=== PATIENT | female | born 1965 | race Caucasian/White ===

== ENCOUNTER 2022-11-20 11:24 | Outpatient (CLI) | payer OTHER, SELFPAY ==
--- NOTE | 2022-11-20 11:30 | CRLHL7_ITS ---
For Patients: As a result of the Century Cures Act, medical imaging exams and procedure reports are released immediately into your electronic medical record. You may view this report before your referring provider. If you have questions, please contact your health care provider. BILATERAL SCREENING MAMMOGRAM WITH COMPUTER-AIDED DETECTION AND TOMOSYNTHESIS TECHNIQUE: CC and MLO views were obtained. These mammographic images have been obtained using full-field digital technique. These mammographic images were interpreted with the benefit of computer-aided detection. Breast Tomosynthesis was used in this interpretation. COMPARISON FILM: 03/02/18, 03/08/12, 04/29/10. FINDINGS: There are scattered areas of fibroglandular density IMPRESSION: There is no radiographic evidence for malignancy. ASSESSMENT: BI-RADS Category 1: Negative RECOMMENDATION: Routine screening mammogram in 1 year. A lay language report of this examination will be provided to the patient. Reza Miranda M.D. Diagnostic Radiologist [email or web address] [place]AVIN[place]/Dictated by: Reza Miranda MD @ 11/23/2022 12:46:00 PM (Electronically Signed)
== END 2022-11-20 11:25 | disposition home or self-care (01) ==
LOC: MAMMO 11:26
PROVIDERS: PCP Internal Medicine; Visit Provider Internal Medicine
DX: Z12.31 Encounter for screening mammogram for malignant neoplasm of breast (principal)
CPT/HCPCS: 77063; 77067

== ENCOUNTER 2022-12-15 14:35 | Outpatient (CLI) | payer OTHER, SELFPAY | END 2022-12-15 14:36 | disposition home or self-care (01) | LOC: NFLDREF 14:35 | PROVIDERS: PCP Internal Medicine; Visit Provider Internal Medicine | DX: E11.9 Type 2 diabetes mellitus without complications (principal); I10 Essential (primary) hypertension; E66.9 Obesity, unspecified; E78.5 Hyperlipidemia, unspecified; E03.9 Hypothyroidism, unspecified | CPT/HCPCS: 80048; 80061 ==

== ENCOUNTER 2023-02-14 20:01 | Emergency (ER) | payer OTHER, SELFPAY ==
[2023-02-14 20:09] VITALS: BP 113/78; PULSE 83; RESP 18; TEMP 36.1; O2SAT 98
--- NOTE | 2023-02-14 20:31 | ED_ITS ---
HPI - General Adult General Date Seen: 02/14/23 Chief complaint: Laceration/Wound Stated complaint: R thumb lac Time Seen by Provider: 02/14/23 20:14 Source: patient Mode of arrival: ambulatory Limitations: no limitations History of Present Illness HPI narrative: Patient is a 57-year-old female presented emergency department for laceration to her right thumb near the MCP joint. 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 Denies any of the injuries. States of large amount of blood initially to she came to the emergency department to be evaluated. Her last tetanus was 5 years ago. No other concerns at this time Related Data Home Medications Medication Instructions Recorded Confirmed albuterol sulfate 90 mcg/actuation 2 inhalation PRN 10/15/22 12/15/22 aerosol inhaler cholecalciferol (vitamin D3) 50 2,000 unit PO DAILY 10/15/22 12/15/22 mcg (2,000 unit) capsule glucosamine sulfate 1,000 mg 1,000 mg PO BID 10/15/22 12/15/22 capsule magnesium oxide 500 mg tablet 500 mg PO QHS 10/15/22 12/15/22 multivitamin (Multiple Vitamins 1 tab PO QAM 10/15/22 12/15/22 tablet) Previous Rx's Medication Instructions Recorded levothyroxine 150 mcg tablet 150 mcg PO QDAY #90 tabs 10/15/22 simvastatin 10 mg tablet 10 mg PO QDAY #90 tabs 10/15/22 valsartan 160 1 tab PO ONCE #90 tabs 10/15/22 mg-hydrochlorothiazide 12.5 mg tablet Allergies Allergy/AdvReac Type Severity Reaction Status Date / Time cetirizine Allergy Severe TONGUE Verified 12/15/22 14:36 SWELLING Review of Systems Narrative: Negative unless otherwise stated in HPI PFSH PFSH Surgical History History of malignant melanoma ?Z85.820 - Personal history of malignant melanoma of skin (ICD-10) History of carpal tunnel syndrome (12/10/08) ?Z86.69 - Personal history of other diseases of the nervous system and sense organs (ICD-10) History of tonsillectomy and adenoidectomy (03/24/12) ?Z90.89 - Acquired absence of other organs (ICD-10) History of hysterectomy (03/24/12) ?Z90.710 - Acquired absence of both cervix and uterus (ICD-10) Family History Father Clotting disorder Coronary artery disease Sister Clotting disorder Colonic polyp, Onset Age: 50 Coronary artery disease Mother Coronary artery disease Other Lupus erythematosus Social History Smoking Status: Never smoker Exam Narrative: Exam Narrative: Const: Well-nourished, Well-developed, in mild distress Eyes: PERRL, no conjunctival injection, and symmetrical lids ENMT: Atraumatic external nose and ears. Moist mucous membranes. MSK:Extremities w/o deformity, Normal Active ROM Skin: Warm, Dry. 0.5 cm laceration just distal to the MCP and right thumb Neuro: Normal Muscle tone, No focal neurological deficits. Psych: Awake, Alert, & Oriented x3. Appropriate mood and affect. Const: Vital Signs, click to edit/add: Vital Signs - 24 hr 02/14/23 20:09 Temperature 97.0 F L Pulse Rate [Right Pulse Oximeter] 83 Respiratory Rate 18 Blood Pressure [Ri ght Upper Arm] 113/78 Pulse Oximetry 98 Oxygen Delivery Me thod Room Air Course Vital Signs Vital signs: Initial Vital Signs Temperature 97.0 F L 02/14/23 20:09 Temperature Source Temporal Artery Scan 02/14/23 20:09 Pulse Rate 83 02/14/23 20:09 Pulse Rhythm Regular 02/14/23 20:09 Respiratory Rate 18 02/14/23 20:09 Blood Pressure 113/78 02/14/23 20:09 Blood Pressure Mean 89 02/14/23 20:09 Blood Pressure Position Sitting 02/14/23 20:09 Pulse Oximetry 98 02/14/23 20:09 Oxygen Delivery Method Room Air 02/14/23 20:09 Vital Signs Temperature 97.0 F L 02/14/23 20:09 Pulse Rate 83 02/14/23 20:09 Respiratory Rate 18 02/14/23 20:09 Blood Pressure 113/78 02/14/23 20:09 Pulse Oximetry 98 02/14/23 20:09 Oxygen Delivery Method Room Air 02/14/23 20:09 Temperature 97.0 F L 02/14/23 20:09 Pulse Rate 83 02/14/23 20:09 Respiratory Rate 18 02/14/23 20:09 Blood Pressure 113/78 02/14/23 20:09 Pulse Oximetry 98 02/14/23 20:09 Oxygen Delivery Method Room Air 02/14/23 20:09 Medical Decision Making MDM Narrative Medical decision making narrative: 57-year-old female presented emergency depart for laceration to her right thumb. This roughly 0.5 cm in length but is currently closed. Did not appear to be very deep. She has full movement of her thumb is not show any signs of tendon or muscle involvement. Wound was thoroughly cleaned. Laceration is well approximated and stays well approximated throughout movements of the thumb. At this point I do not believe is necessary to put sutures and will instead place some skin glue to keep it already well approximated wound edges together. I gave her strict return precautions if she is any concern for infection. She is agreeable to this plan. Discharge Plan Discharge Clinical Impression: Finger laceration Qualifiers: Encounter type: initial encounter Finger: thumb Damage to nail status: without damage Foreign body presence: without foreign body Laterality: right Qualified Code(s): S61.011A - Laceration without foreign body of right thumb without damage to nail, initial encounter Patient Disposition: Home, Self-Care Condition: Stable Instructions: Finger Laceration (ED) Additional Instructions: If the finger starts to show signs of infection or your concern today showing signs of infection follow up with the primary care provider or return to the emergency department immediately to be re-evaluated. Topical antibiotics are not necessary at this time. Prescriptions: No Action cholecalciferol (vitamin D3) 50 mcg (2,000 unit) capsule 2,000 unit PO DAILY glucosamine sulfate 1,000 mg capsule 1,000 mg PO BID multivitamin [Multiple Vitamins] Tablet 1 tab PO QAM magnesium oxide 500 mg tablet 500 mg PO QHS albuterol sulfate 90 mcg/actuation HFA aerosol inhaler 2 inhalation PRN levothyroxine 150 mcg tablet 150 mcg PO QDAY Qty: 90 3RF simvastatin 10 mg tablet 10 mg PO QDAY Qty: 90 3RF valsartan-hydrochlorothiazide 160-12.5 mg tablet 1 tab PO ONCE Qty: 90 3RF Follow Up/Referrals: Rae Dorantes MD [Primary Care Provider] - Stand Alone Forms: [facility] Inst[facility]
--- OUTSIDE RECORDS SUMMARY | 2023-02-14 20:47 | XMS_ITS | Continuity of Care Document ---
Author Name Unknown Organization [facility] Address [address] [address] [place] [address] Phone Care Team Providers Care Brim Stiffener Name Role Phone Seven Bond MD Unavailable Unavailabl e Allergies, Adverse Reactions, Alerts Substance Reaction Status Criticality CETIRIZINE HCL Active No Informatio n Medications Medication Instructions Dosage Effective Dates (start - stop) Status Comments levothyroxine 137 mcg tablet take 1 tablet by oral route every day 137 MCG - Active Women's 50 Plus Daily Formula 400 mcg-500 mg calcium-20 mcg tablet - Active Vitamin D3 2,000 unit tablet take 1 tablet by oral route every day 1 tablet - Active glucosamine sulfate 1,000 mg capsule - Active magnesium 250 mg tablet take 1 Tablet by Oral route once 1 Tablet - Active loratadine 10 mg tablet take 1 tablet by oral route every day 10 MG - Active Procedures Procedure Date Colonoscopy Flex; Dx (sep Pro) 18 Advance Directives Directive Yes / No Effective Date File Name No Information Encounters Encounter Description Practice Location Reason(s) For Visit Diagnoses Date Provider Providers Copied on Encounter [facility], [address] [address], [place], [id number], [place] tel:[phone] [facility] No Information 3 Thomas Amezcua. [address] [facility], [facility] [address], [place], [id number] , [place]. tel:[phone] [facility], [address] [address], [place], [id number], [place] tel:[phone] [facility] Family hx colonic polypsInternal hemorrhoidsEncounte r for screening for malignant neoplasm of colonOther hemorrhoidsFamily history of colonic polyps 8 Cassy Bustos. [address] [facility], [place], [id number] , [place]. tel:[phone] Referring Provider: Rae Dorantes MD E, [address] [place] [address], [address]. tel:[phone] Family History Family Member Type Diagnosis Age At Onset Mother Problem (finding) Sister Problem (finding) Colon polyps Sister Problem (finding) asthma Father Problem (finding) Sister Problem (finding) diverticulitis of colon Immunizations Vaccine Date Status Comments SARS-COV-2 (COVID-19) vaccin e, mRNA, spike protein, LNP, preservative free, 30 mcg/0.3mL dose administered Note: [facility] bi-direct ional interface ; Source: Other Registry SARS-COV-2 (COVID-19) vaccin e, mRNA, spike protein, LNP, preservative free, 30 mcg/0.3mL dose administered Note: [facility] bi-direct ional interface ; Source: Other Registry influenza virus vaccine, unspecified formulation administered Note: [facility] bi-di rectional interface ; Source: Other Registry SARS-COV-2 (COVID-19) vaccin e, mRNA, spike protein, LNP, preservative free, 30 mcg/0.3mL dose administered Note: [facility] bi-direct ional interface ; Source: Other Registry SARS-COV-2 (COVID-19) vaccin e, mRNA, spike protein, LNP, preservative free, 30 mcg/0.3mL dose administered Note: [facility] bi-direct ional interface ; Source: Other Registry Seasonal, quadrivalent, recombinant, injectable influenza vaccine, preservative free administered Note: [facility] bi-direct ional interface ; Source: Other Registry measles, mumps and rubella v irus vaccine administered Note: [facility] bi-direct ional interface ; Source: Other Registry tetanus and diphtheria toxoi ds, adsorbed, preservative free, for adult use (5 Lf of tetanus toxoid and 2 Lf of diphtheria toxoid) administered Note: [facility] bi-direct ional interface ; Source: Other Registry Influenza, seasonal, injecta ble, preservative free administered Note: [facility] bi-direct ional interface ; Source: Other Registry Influenza administered Note: [facility] bi-d irectional interface ; Source: Other Registry Afluria Qd administered Note: [facility] bi-directional interface ; Source: Other Registry Afluria Qd administered Note: [facility] bi-directional interface ; Source: Other Registry Influenza, seasonal, injectable administe red Note: [facility] bi- directional interface ; Source: Other Registry Influenza, seasonal, injecta ble, preservative free administered Note: [facility] bi-direct ional interface ; Source: Other Registry Influenza, seasonal, injecta ble, preservative free administered Note: [facility] bi-direct ional interface ; Source: Other Registry Influenza, seasonal, injecta ble, preservative free administered Note: [facility] bi-direct ional interface ; Source: Other Registry Influenza, seasonal, injecta ble, preservative free administered Note: [facility] bi-direct ional interface ; Source: Other Registry Novel [id number], injectable administered Note: [facility] bi-direct ional interface ; Source: Other Registry tetanus toxoid, reduced diphtheria toxoid, and acellular pertussis vaccine, adsorbed administered Note: [facility] b i-directional interface ; Source: Other Registry Payers Payer name Insurance type Covered democrat ID Authoriza tion(s) No Information Social History Type Description Quantity Date Captured Comments Sex Female Smoking Status No Information Chief Complaint And Reason For Visit No Information Reason For Referral Reason For Referral No Information Plan Of Treatment Date Type Action Status Appointment Essie Borges History Of Present Illness Encounter Date Complaint History Of Prese nt Illness No Information Functional Status Date Functional Assessmen t No Information Instructions Date Instruction Additional Infor mation High Fiber Diet Related to Famil y hx colonic polyps Colon Cancer Prevention Related to Family hx colonic polyps Hemorrhoids Related to Famil y hx colonic polyps Assessments Type Assessment Date No Information Patient Care Teams Name Effective Dates (start - stop) Status Members No Information
== END 2023-02-14 20:54 | disposition home or self-care (01) ==
LOC: ED 20:45
PROVIDERS: Emergency Provider Student in an Organized Health Care Education/Training Program; PCP Internal Medicine
DX: S61.011A Laceration without foreign body of right thumb without damage to nail, initial encounter (principal); W26.0XXA Contact with knife, initial encounter
CPT/HCPCS: 12001; 99282

== ENCOUNTER 2023-04-27 09:11 | Outpatient (CLI) | payer OTHER, SELFPAY | END 2023-04-27 09:12 | disposition home or self-care (01) | PROVIDERS: PCP Internal Medicine; Visit Provider Internal Medicine | DX: E11.9 Type 2 diabetes mellitus without complications (principal); I10 Essential (primary) hypertension; E66.01 Morbid (severe) obesity due to excess calories; K76.0 Fatty (change of) liver, not elsewhere classified; E03.9 Hypothyroidism, unspecified | CPT/HCPCS: 80053 ==

== ENCOUNTER 2023-06-11 07:25 | Outpatient (CLI) | payer OTHER, SELFPAY | END 2023-06-11 07:26 | disposition home or self-care (01) | LOC: NFLDREF 06-17 15:33 | PROVIDERS: PCP Internal Medicine; Referring Provider Internal Medicine; Visit Provider Internal Medicine | DX: E11.42 Type 2 diabetes mellitus with diabetic polyneuropathy (principal); I10 Essential (primary) hypertension; E78.5 Hyperlipidemia, unspecified; E03.9 Hypothyroidism, unspecified; K76.0 Fatty (change of) liver, not elsewhere classified | CPT/HCPCS: 80053; 80061; 82043; 82570 ==

== ENCOUNTER 2023-06-14 15:12 | Outpatient (CLI) | payer OTHER, SELFPAY ==
--- OUTSIDE RECORDS SUMMARY | 2023-06-16 12:05 | XMS_ITS | Encounter Summary ---
Author Name Unknown Organization [facility] Address [address] [place] [id number] Care Team Providers Care Aix Administrator Name Role Phone Unavailable Primary Care Provider Unavailabl e Encounter Details Date Type Department Care Team (Latest Contact Info) Description 04/23/2023 Travel Social History Tobacco Use Types Packs/Day Years Used Date Smoking Tobacco: Never Passive Smoke Exposure: Past Smokeless Tobacco: Never Alcohol Use Standard Drinks/Week Comments Yes 0 (1 standard drink = 0.6 oz pur e alcohol) occas Adolescent Education Answer Date Record ed Getting School Help Needed Not on file 04/21 Sex and Gender Information Value Date Recorded Sex Assigned at Female 05/01/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
--- OUTSIDE RECORDS SUMMARY | 2023-06-16 12:05 | XMS_ITS | Encounter Summary ---
Author Name Unknown Organization [facility] Address [address] [place] [id number] Care Team Providers Care Health Unit Supervisor Name Role Phone Rae Dorantes MD Primary Care Provider Reason for Visit * Auth/Cert (Routine) Specialty Diagnoses / Procedures Referred By Contac t Referred To Contact Surgery Diagnoses Osteoarthritis of left hip Osteoarthritis of left hip [M16.12] Procedures [place] TOTAL HIP ARTHROPLASTY Left total hip arthroplasty Periop Services [address] [place] [address] Referral ID Status Reason Start Date Expiration Date Visits Re quested Visits Authorized [id number] 1 1 Encounter Details Date Type Department Care Team (Late st Contact Info) Description 05/20/2023 1:04 PM PROFESSOR OF ENVIRONMENTAL STUDIES Anesthesia Event [facility] [address] [place] [phone] Sara Correa MD [address] [place] [address] Anesthesia Record Procedure Summary Procedure Name Responsible Anesthesiologist Anesthesia Start Time Anesthesia Stop Time Left total hip arthroplasty (Left: Hip) Sara Correa MD 05/20/23 1304 05/20/23 1444 Events Date Time Event Comment 05/20/2023 1224 1251 DEFENSE TRAVEL ADMINISTRATOR Ready for Procedure 1304 An Start 1307 An Start Data 1307 AN REASSESS I attest that I have identified and re-evaluated the patient immediately before the induction of anesthesia and I am satisfied that the anesthetic plan is suitable for the patient's condition and procedure. The first vital signs recorded are pre- induction. Sepideh Huertas APRN DEFENSE TRAVEL ADMINISTRATOR 1307 Anesthesia Ready for Procedu re 1310 MD Present 1314 Quick Note Spinal placed b y Dr. Correa 1314 MD Present 1349 MD Present 1420 MD Present 1438 an stop data 1444 An Stop Electronically signed by Sepideh Huertas APRN DEFENSE TRAVEL ADMINISTRATOR on May 20, 2023 2:44 PM 1444 MD Present Meds Name Total midazolam 1 mg/mL 2 mg ketorolac 30 mg/mL 15 mg propofol 10 mg/mL 40 mg propofol drip mcg/kg/min 706.76 mg dexamethasone (DECADRON) 4 mg/mL 4 mg ondansetron 2 mg/mL 4 mg 0.5% Bupivacaine PF (Intrathecal) 2 mL ceFAZolin Sodium (ANCEF) injection 2 g 2 g LR 900 mL * Agents Name NO HELIOX O2 N2O Air Exp Sevoflurane Exp Isoflurane Exp Desflurane Exp N2O Ins Sevoflurane Ins Isoflurane Ins Desflurane O2 Auxiliary * Blood No blood administrations on file. Lines, Drains, and Airways Type Details Placement Removal Incision/Surgical Site 05/20/23; 1401; L eft; Hip; x1 incision 05/20/23 1401 by Hellen Orozco RN Peripheral IV 05/20/23; 1226; 20 G ; B Mcnally; Distal, Left, Dorsal; Lower forearm; Chlorhexidine; 1; Tolerated well 05/20/23 1226 by Brandi Hager RN 05/21/23 1238 by Delmi Perrin RN documented in this encounter Social History Tobacco Use Types Packs/Day Years [...] Sex Assigned at Female 05/01/2023 11:03 AM PROFESSOR OF ENVIRONMENTAL STUDIES Gender Identity Female 05/01/2023 11:03 AM PROFESSOR OF ENVIRONMENTAL STUDIES Sexual Orientation Not on file documented as of this encounter OR Notes * Anesthesia Postprocedure Evaluation - Sara Correa MD - 05/20/2023 2:59 PM CST Patient: Essie Borges Procedure: Procedure(s): Left total hip arthroplasty Anesthesia Type: Spinal Note: Disposition: Admission Postop Pain Control: Uneventful Sign Out: Well controlled pain PONV: No Neuro/Psych: Uneventful Sign Out: Acceptable/Baseline neuro status Airway/Respiratory: Uneventful Sign Out: Acceptable/Baseline resp. status CV/Hemodynamics: Uneventful Sign Out: Acceptable CV status; No obvious hypovolemia; No obvious fluid overload Other NRE: NONE DID A NON-ROUTINE EVENT OCCUR? No Last vitals: Vitals Value Taken Time BP 107/67 05/20/23 1455 Temp 97.7 ??F (36.5 ??C) 05/20/23 1440 Pulse 90 05/20/23 1457 Resp 19 05/20/23 1457 SpO2 100 % 05/20/23 1457 Vitals shown include unfiled device data. Electronically Signed By: Sara Correa MD May 20, 2023 2:59 PM ESSOR OF ENVIRONMENTAL STUDIES * Anesthesia Procedure Notes - Sara Correa MD - 05/20/2023 1:24 PM PROFESSOR OF ENVIRONMENTAL STUDIES Associated Order(s): Spinal Block Intrathecal injection Procedure Note Pre-Procedure Staff - Anesthesiologist: Sara Correa MD Performed By: anesthesiologist Referred By: Dr. Gasca Location: OR Procedure Start/Stop Times: 05/20/2023 1:06 PM and 05/20/2023 1:14 PM Pre-Anesthestic Checklist: patient identified, IV checked, risks and benefits discussed, informed consent, monitors and equipment checked, pre-op evaluation, at physician/surgeon's request and post-op pain management Timeout: Correct Patient: Yes Correct Procedure: Yes Correct Site: Yes Correct Position: Yes Procedure Documentation Procedure: intrathecal injection Patient Position: sitting Skin prep: Chloraprep Insertion Site: L3-4. (midline approach). Needle Gauge: 25. Needle Length (Inches): 4 Spinal Needle Type: Pencan Introducer used # of attempts: 1 and # of redirects: Assessment/Narrative CSF fluid: clear. Medication(s) Administered 0.5% Bupivacaine PF (Intrathecal) - Intrathecal 2 mL - 05/20/2023 1:14:00 PM Medication Administration Time: 05/20/2023 1:06 PM Comments: R/b/a discussed, patient consented to spinal for primary anesthetic. Clear CSF return before and after intrathecal injection of local anesthetic. No paraesthesias. No complications, patienttolerated the procedure well. FOR [facility] ([facility] [place]) ONLY: Pain Team Contact information: please page the Pain Team Via [employer]Search Pain. During daytime hours, please page the attending first. At night please page the resident first. 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 abdominal ORTHOPEDIC SURGERY Bilateral carpal tunnel SOFT TISSUE SURGERY melanoma knee Allergies Allergen Reactions Cetirizine Swelling Social History Tobacco Use Smoking status: Never Passive exposure: Past Smokeless tobacco: Never Substance Use Topics Alcohol use: Yes Comment: occas Wt Readings from Last 1 Encounters: 05/20/23 111.3 kg (245 lb 4.8 oz) Anesthesia Evaluation ROS/MED HX ENT/Pulmonary: (+) Intermittent, asthma Treatment: Inhaler prn, Neurologic: - neg neurologic ROS Cardiovascular: (+) hypertension- - - - - METS/Exercise Tolerance: >4 METS Hematologic: - neg hematologic ROS Musculoskeletal: - neg musculoskeletal ROS GI/Hepatic: - neg GI/hepatic ROS Renal/Genitourinary: - neg Renal ROS Endo: (+) type II DM, Last HgA1c: 5.6%, Not using insulin, - not using insulin pump. thyroid problem, hypothyroidism, Obesity, Psychiatric/Substance Use: - neg psychiatric ROS Infectious Disease: - neg infectious disease ROS Malignancy: - neg malignancy ROS Other: - neg other ROS Physical Exam Airway Mallampati: II TM distance: > 3 FB Neck ROM: full Mouth opening: > 3 cm Respiratory Devices and Support Dental (+) Minor Abnormalities - some fillings, tiny chips Cardiovascular cardiovascular exam normal Rhythm and rate: regular and normal Pulmonary pulmonary exam normal breath sounds clear to auscultation OUTSIDE LABS: CBC: Lab Results Component Value Date WBC 7.5 05/20/2023 HGB 12.9 05/20/2023 HCT 39.8 05/20/2023 PLT 203 05/20/2023 BMP: Lab Results Component Value Date GLC 98 05/20/2023 COAGS: No results found for: PTT, INR, FIBR POC: No results found for: BGM, HCG, HCGS HEPATIC: No results found for: ALBUMIN, PROTTOTAL, ALT, AST, GGT, ALKPHOS, BILITOTAL,BILIDIRECT, FILI OTHER: No results found for: PH, LACT, A1C, BRANDY, PHOS, MAG, LIPASE, AMYLASE, TSH,T4, T3, CRP, SED Anesthesia Plan ASA Status: 3 NPO Status: NPO Appropriate Anesthesia Type: Spinal. Maintenance: TIVA. Consents Anesthesia Plan(s) and associated risks, benefits, and realistic alternatives discussed. Questions answered and patient/sales representative cash registers(s) expressed understanding. - Discussed: Risks, Benefits and Alternatives for BOTH SEDATION and the PROCEDURE were discussed - Discussed with: Patient Use of blood products discussed: Yes. - Discussed with: Patient. - Consented: consented to blood products Reason for refusal: other. Postoperative Care Pain management: Neuraxial analgesia. PONV prophylaxis: Ondansetron (or other 5HT-3), Dexamethasone or Solumedrol Comments: Other Comments: R/b/a discussed including bleeding, infection, nerve damage, and headache. Patient consented to spinal for primary anesthesia with GA as backup. Last dose of Tirzepatide was over 1 week ago. Took valsartan-hydrochlorothiazide this morning. Plan: Spinal with GETA backup. Propofol and phenylephrine infusions. Sara Correa MD I have reviewed the pertinent notes and labs in the chart from the past 30 days and (re)examined the patient. Any updates or changes from those notes are reflected in this note. # Obesity: Estimated body mass index is 38.42 kg/m?? as calculated from the following: Height as of this encounter: 1.702 m (5' 7). Weight as of this encounter: 111.3 kg (245 lb 4.8 oz). ESSOR OF ENVIRONMENTAL STUDIES documented in this encounter Miscellaneous Notes * Anesthesia Care Transfer Note - Sepideh Huertas APRN CRNA - 05/20/2023 2:44 PM CST Patient: Essie Borges Procedure: Procedure(s): Left total hip arthroplasty Diagnosis: Osteoarthritis of left hip [M16.12] Diagnosis Additional Information: No value filed. Anesthesia Type: Spinal Note: Oropharynx: oropharynx clear of all foreign objects and spontaneously breathing Level of Consciousness: awake Oxygen Supplementation: face mask Independent Airway: airway patency satisfactory and stable Dentition: dentition unchanged Vital Signs Stable: post-procedure vital signs reviewed and stable Report to RN Given: handoff report given Patient transferred to: PACU Comments: VSS. Report to RN. Handoff Report: Identifed the Patient, Identified the Reponsible Provider, Reviewed the pertinent medical history, Discussed the surgical course, Reviewed Intra-OP anesthesia mangement and issues during anesthesia, Set expectations for post-procedure period and Allowed opportunity for questions andacknowledgement of understanding Vitals: Vitals Value Taken Time BP Temp Pulse 97 05/20/23 1444 Resp 13 05/20/23 1444 SpO2 100 % 05/20/23 1444 Vitals shown include unfiled device data. Electronically Signed By: Sepideh Huertas APRN CRNA May 20, 2023 2:44 PM ESSOR OF ENVIRONMENTAL STUDIES documented in this encounter Plan of Treatment Not on file documented as of this encounter Goals Goal Patient Goal Type Associated Problems Recent Progress Patient-Stated? Author Total Joint Replacement Hip Pathway Care Plan Total Joint Replacement Hip Pathway No Felipe Gianes RN documented as of this encounter Procedures Procedure Name Priority Date/Time Associated Diagnosis Comments ANE SPINAL BLOCK FORM Routine 05/20/2023 1:06 PM PROFESSOR OF ENVIRONMENTAL STUDIES documented in this encounter Results * Spinal Block (05/20/2023 1:06 PM PROFESSOR OF ENVIRONMENTAL STUDIES) Narrative Sara Correa MD - 05/20/2023 1:06 PM PROFESSOR OF ENVIRONMENTAL STUDIES Sara Correa MD ? 05/20/2023 ??1:24 PM Intrathecal injection Procedure Note Pre-Procedure Staff - ? Anesthesiologist: ??Sara Correa MD ? Performed By: anesthesiologist ? Referred By: Dr. Gasca ? Location: OR ? Procedure Start/Stop Times: 05/20/2023 1:06 PM and 05/20/2023 1:14 PM ? Pre-Anesthestic Checklist: patient identified, IV checked, risks and benefits discussed, informed consent, monitors and equipment checked, pre-op evaluation, at physician/surgeon's request and post-op pain management Timeout: ? Correct Patient: Yes ? Correct Procedure: Yes ? Correct Site: Yes ? Correct Position: Yes Procedure Documentation Procedure: intrathecal injection ? Patient Position: sitting ? Skin prep: Chloraprep ? Insertion Site: L3-4. (midline approach). ? Needle Gauge: 25. ? Needle Length (Inches): 4 ? Spinal Needle Type: Pencan ? Introducer used ? # of attempts: 1 and ??# of redirects: Assessment/Narrative ? CSF fluid: clear. Medication(s) Administered 0.5% Bupivacaine PF (Intrathecal) - Intrathecal 2 mL - 05/20/2023 1:14:00 PM Medication Administration Time: 05/20/2023 1:06 PM Comments: ??R/b/a discussed, patient consented to spinal for primary anesthetic. Clear CSF return before and after intrathecal injection of local anesthetic. No paraesthesias. No complications, patient tolerated the procedure well. FOR [facility] ([facility] [place]) ONLY: ?? Pain Team Contact information: please page the Pain Team Via [employer]. Search Pain. During daytime hours, please page the attending first. At night please page the resident first. Sara Correa MD [place] ANESTHESIA documented in this encounter Visit Diagnoses Not on filedocumented in this encounter Administered Medications Inactive Administered Medications - up to 3 most recent administrations Medication Order MAR Action Action Date Dose Rate Site 0.5% Bupivacaine PF (Intrathecal) Intrathecal, Starting on Jaycee 05/20/23 at 1314, Anesthesia Intra-op $Given 05/20/2023 1:14 PM PROFESSOR OF ENVIRONMENTAL STUDIES 2 mLs ceFAZolin Sodium (ANCEF) injection 2 g Routine, 2 g, Intravenous, PRE-OP/PRE-PROCEDURE, Starting on Jaycee 05/20/23 at 1137, For 1 dose, Give first dose within 1 hour PRIOR to incision. If patient weight is greater than or equal to 120 kg increase dose to 3 g., Indications: Perioperative Pharmacoprophylaxis, Pre-procedure $Given 05/20/2023 1:04 PM PROFESSOR OF ENVIRONMENTAL STUDIES 2 g dexAMETHasone (DECADRON) injection Intravenous, PRN, Administer over 1 Minutes, Starting on Jaycee 05/20/23 at 1334, Anesthesia Intra-op $Given 05/20/2023 1:34 PM PROFESSOR OF ENVIRONMENTAL STUDIES 4 mg ketorolac (TORADOL) injection Intravenous, PRN, Administer over 2 Minutes, Starting on Jaycee 05/20/23 at 1424, Anesthesia Intra-op $Given 05/20/2023 2:24 PM PROFESSOR OF ENVIRONMENTAL STUDIES 15 mg lactated ringers infusion Intravenous, CONTINUOUS PRN, Anesthesia Intra-op, Starting on Jaycee 12 at 1304, Until Jaycee 12 at 1444 $New Bag 05/20/2023 1:04 PM PROFESSOR OF ENVIRONMENTAL STUDIES midazolam (VERSED) injection Intravenous, Administer over 2 Minutes, PRN, Starting on Jaycee 05/20/23 at 1302, Anesthesia Intra-op $Given 05/20/2023 1:02 PM PROFESSOR OF ENVIRONMENTAL STUDIES 2 mg ondansetron (ZOFRAN) injection Intravenous, PRN, Administer over 2-5 Minutes, Starting on Jaycee 05/20/23 at 1423, Anesthesia Intra-op $Given 05/20/2023 2:23 PM PROFESSOR OF ENVIRONMENTAL STUDIES 4 mg propofol (DIPRIVAN) infusion Intravenous, CONTINUOUS PRN, Starting on Jaycee 05/20/23 at 1320, Anesthesia Intra-op Rate/Dose Change 05/20/2023 2:17 PM PROFESSOR OF ENVIRONMENTAL STUDIES 100 mcg/kg/min 66.78 mL/hr Rate/Dose Change 05/20/2023 2:07 PM PROFESSOR OF ENVIRONMENTAL STUDIES 75 mcg/kg/min 50.0 85 mL/hr Rate/Dose Change 05/20/2023 1:45 PM PROFESSOR OF ENVIRONMENTAL STUDIES 100 mcg/kg/min 66. 78 mL/hr propofol (DIPRIVAN) injection 10 mg/mL vial Intravenous, PRN, Starting on Jaycee 05/20/23 at 1327, Anesthesia Intra-op $Given 05/20/2023 1:27 PM PROFESSOR OF ENVIRONMENTAL STUDIES 40 mg documented in this encounter Additional Health Concerns Problem Noted Date Diagnosed Date Total Joint Replacement Hip Pathway 05/10/2023 documented as of this encounter Care Teams Health Unit Supervisor Relationship Specialty Start Date End Date Rae Dorantes MD [facility] & [address] [id number] PCP - General Internal Medicine 04/26/23 documented as of this encounter
--- OUTSIDE RECORDS SUMMARY | 2023-06-16 12:05 | XMS_ITS | Clinical Summary ---
Author Name Unknown Organization [facility] Address [address] [place] [address] Care Team Providers Care Varnish Maker Helper Name Role Phone Rae Dorantes MD Primary Care Provider Allergies Active Allergy Reactions Criticality Noted Date Comments Cetirizine Swelling 10/05/2006 Medications Medication Sig Dispensed Refills Start Date End Date Status levothyroxine (SYNTHROID/LEVOTHROI D) 150 MCG tablet Take 150 mcg by mouth daily 0 Active tirzepatide (MOUNJARO) 2.5 MG/0.5ML pen Inject 2.5 mg Subcutaneous every 7 days 0 Active valsartan-hydrochlor othiazide (DIOVAN HCT) 160-12.5 MG tablet Take 1 tablet by mouth daily 0 Active simvastatin (ZOCOR) 10 MG tablet Take 10 mg by mouth at bedtime 0 Active Multiple Vitamins-Minerals (MULTIVITAMIN ADULTS 50+ PO) Take 1 tablet by mouth daily 0 Active Turmeric 400 MG CAPS Take 1 capsule by mouth 2 times daily 0 Active odpildl-kkgrfpo-huss yl elizabeth 4-10-30 % CREA Apply topically daily as needed 0 Active ibuprofen (ADVIL/MOTRIN) 600 MG tablet Take 600 mg by mouth every 6 hours as needed for moderate pain 0 Active albuterol (PROAIR HFA/PROVENTIL HFA/VENTOLIN HFA) 108 (90 Base) MCG/ACT inhaler Inhale 2 puffs into the lungs every 6 hours as needed for shortness of breath, wheezing or cough 0 Active senna-docusate (SENOKOT-S/PERICOLAC E) 8.6-50 MG tabletIndications:Pr imary osteoarthritis of left hip Take 1-2 tablets by mouth 2 times daily Take while on oral narcotics to prevent or treat constipation. 30 tablet 0 05/20/2023 Active polyethylene glycol (MIRALAX) 17 g packetIndications:Pr imary osteoarthritis of left hip Take 17 g by mouth daily 7 packet 0 05/20/2023 Active acetaminophen (TYLENOL) 325 MG tabletIndications:Pr imary osteoarthritis of left hip Take 2 tablets (650 mg) by mouth every 4 hours as needed for other (mild pain) 60 tablet 0 05/20/2023 Active aspirin (ASA) 325 MG EC tabletIndications:Pr imary osteoarthritis of left hip Take 1 tablet (325 mg) by mouth daily 42 tablet 0 05/20/2023 Active oxyCODONE (ROXICODONE) 5 MG tabletIndications:Pr imary osteoarthritis of left hip Take 1-2 tablets (5-10 mg) by mouth every 4 hours as needed for moderate to severe pain 30 tablet 0 05/20/2023 Active hydrOXYzine HCl (ATARAX) 25 MG tabletIndications:Pr imary osteoarthritis of left hip Take 1 tablet (25 mg) by mouth every 6 hours as needed for itching or anxiety (with pain, moderate pain) 30 tablet 0 05/20/2023 Active Active Problems Problem Noted Date Diagnosed Date S/P total left hip arthroplasty 05/20/2023 Encounters Date Type Department Care Team Description 05/20/2023 1:04 PM INSECTICIDE EXPERT Anesthesia Event [facility] PeriOp Services [address] [place] [address] Sara Correa MD 05/20/2023 12:50 PM INSECTICIDE EXPERT - 05/20/2023 3:10 PM INSECTICIDE EXPERT Surgery [facility] PeriOp Services [address] [place] [address] Favio Gasca MD Left total hip arthroplasty 05/20/2023 10:43 AM INSECTICIDE EXPERT - 05/21/2023 1:41 PM INSECTICIDE EXPERT Hospital Encounter [facility] Ortho Spine [address] [place] [address] Favio Gasca MD Primary osteoarthritis of left hip (Primary Dx) Discharge Disposition: Home or Self Care 04/23/2023 Travel from Last 3 Months Social History Tobacco Use Types Packs/Day Years Used Date Smoking Tobacco: Never Passive Smoke Exposure: Past Smokeless Tobacco: Never Tobacco Cessation:Counseling Given: Not Answered Alcohol Use Standard Drinks/Week Comments Yes 0 (1 standard drink = 0.6 oz pur e alcohol) occas Adolescent Education Answer Date Record ed Getting School Help Needed Not on file 04/21 Sex and Gender Information Value Date Recorded Sex Assigned at Female 05/01/2023 11:03 AM INSECTICIDE EXPERT Gender Identity Female 05/01/2023 11:03 AM INSECTICIDE EXPERT Sexual Orientation Not on file Last Filed Vital Signs Vital Sign Reading Time Taken Comments Blood Pressure 116/52 05/21/2023 1:00 PM INSECTICIDE EXPERT Pulse 82 05/21/2023 1:00 PM INSECTICIDE EXPERT Temperature 36.8 ??C (98.2 ??F) 05/21/2023 1:00 PM CS T Respiratory Rate 16 05/21/2023 1:00 PM INSECTICIDE EXPERT Oxygen Saturation 98% 05/21/2023 1:00 PM INSECTICIDE EXPERT Inhaled Oxygen Concentration - - Weight 111.3 kg (245 lb 4.8 oz) 023 11:14 AM INSECTICIDE EXPERT Height 170.2 cm (5' 7) 05/04/2023 11:0 0 AM INSECTICIDE EXPERT Body Mass Index 38.42 05/04/2023 11:00 AM INSECTICIDE EXPERT Plan of Treatment Health Maintenance Due Date Last Done Comments ADVANCE CARE PLANNING 1964 ANNUAL REVIEW OF HM ORDERS 1964 CT COLONOGRAPHY 1964 FIT 1964 FLEX SIG 1964 HEPATITIS B IMMUNIZATION (1 of 3 - 3-dose series) 1964 MAMMO SCREENING 1964 TSH W/FREE T4 REFLEX 1964 YEARLY PREVENTIVE VISIT 1964 sDNA (Cologuard) 1964 COLONOSCOPY 1974 COLORECTAL CANCER SCREENING 1974 HIV SCREENING 09/05/1979 HEPATITIS C SCREENING 1982 PAP 1985 LIPID 2009 ZOSTER IMMUNIZATION (1 of 2) 2014 PHQ-2 (once per calendar year) 2023 DTAP/TDAP/TD IMMUNIZATION (3 - Td or Tdap) 04/04/2028 04/04/2018, 03/06/2008 COVID-19 Vaccine Completed 04/27/2023, , 03/11/2021, Additional history exists INFLUENZA VACCINE Completed 04/27/2023, , 03/03/2019, Additional history exists HPV IMMUNIZATION Aged Out No longer e ligible based on patient's age to complete this topic IPV IMMUNIZATION Aged Out No longer e ligible based on patient's age to complete this topic MENINGITIS IMMUNIZATION Aged Out No l onger eligible based on patient's age to complete this topic Pneumococcal Vaccine: Pediatrics (0 to 5 Years) and At-Risk Patients (6 to 64 Years) Aged Out No longer eligible based on patient's age to complete this topic RSV MONOCLONAL ANTIBODY Aged Out No l onger eligible based on patient's age to complete this topic Goals Goal Patient Goal Type Associated Problems Recent Progress Patient-Stated? Author Total Joint Replacement Hip Pathway Care Plan Total Joint Replacement Hip Pathway No Felipe Gaines RN Medical Devices Implanted Type Area Finished Carpet Inspector Device Identifier Shelf Expiration Date Model / Serial / Lot Imp Scr Strk Low Profile Hex 6.5x30mm [id number] - [id number] Implanted:Qty : 2 on 05/20/2023 by Favio Gasca MD at [facility] Metallic Hardware/Anc hor Left: Hip [employer] 02/24/2028 [id number] / / [id number] Imp Head Femoral Strk Biolox Delta Ceramic V40 36mm - [id number] Implanted:Qty : 1 on 05/20/2023 by Favio Gasca MD at [facility] Total Joint Component/In sert Left: Hip [employer] 12/31/2027 [id number] / / [id number] Procedures Procedure Name Priority Date/Time Associated Diagnosis Comments GLUCOSE Routine 05/21/2023 6:51 AM INSECTICIDE EXPERT HEMOGLOBIN Routine 05/21/2023 6:51 AM INSECTICIDE EXPERT GLUCOSE BY METER Routine 05/21/2023 1:22 AM INSECTICIDE EXPERT GLUCOSE BY METER Routine 05/20/2023 9:37 PM INSECTICIDE EXPERT GLUCOSE BY METER Routine 05/20/2023 5:32 PM INSECTICIDE EXPERT XR PELVIS AND HIP PORTABLE LEFT 1 VIEW STAT 05/20/2023 3:29 PM INSECTICIDE EXPERT GLUCOSE BY METER Routine 05/20/2023 2:48 PM INSECTICIDE EXPERT ANE SPINAL BLOCK FORM Routine 05/20/2023 1:06 PM INSECTICIDE EXPERT ARTHROPLASTY, HIP, TOTAL 05/20/2023 12:51 PM INSECTICIDE EXPERT Osteoarthritis of left hip Special Needs MB -No (BMI) GLUCOSE BY METER Routine 05/20/2023 11:4 3 AM INSECTICIDE EXPERT ABO/RH TYPE AND SCREEN STAT 05/20/2023 11:40 AM INSECTICIDE EXPERT ABO AND RH STAT 05/20/2023 11:40 AM INSECTICIDE EXPERT TYPE AND SCREEN, ADULT STAT 05/20/2023 11:40 AM INSECTICIDE EXPERT CBC WITH PLATELETS STAT 05/20/2023 11 :40 AM INSECTICIDE EXPERT EKG CARDIAC - HIM SCAN 04/27/2023 12:00 AM INSECTICIDE EXPERT EKG CARDIAC - HIM SCAN 04/27/2023 12:00 AM INSECTICIDE EXPERT from Last 3 Months Results * (ABNORMAL) Hemoglobin (05/21/2023 6:51 AM INSECTICIDE EXPERT) Hemoglobin 10.2(L) 11.7 - 15.7 g/dL 05/21/2023 6:59 AM INSECTICIDE EXPERT RH LABORATORY Blood STRUCTURE OF RIGHT UPPER LIMB / Unknown Venipuncture / Unknown 05/21/2023 6:51 AM INSECTICIDE EXPERT 05/21/2023 6:54 AM INSECTICIDE EXPERT Mimi Richardson PA-C LAB - BLOOD ORDERABL ES RH LABORATORY [facility] Lab [address] [facility] Lab (1st floor, no room number) [place] [address], [facility] [phone] * (ABNORMAL) Glucose (05/21/2023 6:51 AM INSECTICIDE EXPERT) Glucose 103(H) 70 - 99 mg/dL 05/21/2023 7:14 AM INSECTICIDE EXPERT LABORATORY Patient Fasting > 8hrs? Yes 05/21/2023 7:14 AM INSECTICIDE EXPERT LABORATORY Blood STRUCTURE OF RIGHT UPPER LIMB / Unknown Venipuncture / Unknown 05/21/2023 6:51 AM INSECTICIDE EXPERT 05/21/2023 6:54 AM INSECTICIDE EXPERT Favio Gasca MD LAB - BLOOD KANWAL RAMIREZ [facility] [address] Lab (1st floor, no room number) [place] [address], [facility] [phone] * (ABNORMAL) Glucose by meter (05/21/2023 1:22 AM INSECTICIDE EXPERT) Only the most recent of5 resultswithin the time period is included. GLUCOSE BY METER POCT 129(H) 70 - 99 mg/dL 05/21/2023 1:28 AM INSECTICIDE EXPERT LABORATORY POC Blood, Capillary BLOOD SPECIMEN / Unknown 05/21/2023 1:22 AM INSECTICIDE EXPERT 05/21/2023 1:28 AM INSECTICIDE EXPERT Favio Gasca MD LAB - BEAKER POC T Performing Organization Address City/[facility]/ZIP Co de Phone Number LABORATORY [facility] Lab [address] Lab (1st floor, no room number) [place] [address], [facility] [phone] * XR Pelvis w Hip Port Left 1 View (05/20/2023 3:29 PM INSECTICIDE EXPERT) Anatomical Region Laterality Modality Abdomen/Pelvis Left Digital Radiogra phy Impressions 05/20/2023 3:33 PM INSECTICIDE EXPERT Impression: 1. ??Completed left total hip arthroplasty. Normal joint alignment. No evidence of periprostatic fracture or other immediate complication. Postoperative air in the surrounding soft tissues. 2. ??Advanced degenerative arthritic changes in the right hip. RICHIE SCHRADER MD SYSTEM ID: ??[id number] Narrative 05/20/2023 3:33 PM INSECTICIDE EXPERT Examination: ??XR PELVIS AND HIP PORTABLE LEFT 1 VIEW Date: ??05/20/2023 3:29 PM Clinical Information: Status post Hip surgery Comparison: none. Procedure Note Richie Schrader MD - 05/20/2023 Examination: XR PELVIS AND HIP PORTABLE LEFT 1 VIEW Date: 05/20/2023 3:29 PM Clinical Information: Status post Hip surgery Comparison: none. Impression: 1. Completed left total hip arthroplasty. Normal joint alignment. No evidence of periprostatic fracture or other immediate complication. Postoperative air in the surrounding soft tissues. 2. Advanced degenerative arthritic changes in the right hip. RICHIE SCHRADER MD SYSTEM ID: [id number] Mimi Richardson PA-C IMG DIAGNOSTIC IMAGI NG ORDERABLES * Spinal Block (05/20/2023 1:06 PM INSECTICIDE EXPERT) Narrative Sara Correa MD - 05/20/2023 1:06 PM INSECTICIDE EXPERT Sara Correa MD ? 05/20/2023 ??1:24 PM [...] complications, patient tolerated the procedure well. FOR [facility] ([facility]) ONLY: ?? Pain Team Contact information: please page the Pain Team Via [employer] Search Pain. During daytime hours, please page the attending first. At night please page the resident first. Sara Correa MD CO ANESTHESIA * Adult Type and Screen (05/20/2023 11:40 AM INSECTICIDE EXPERT) ABO/RH(D) A POS 05/20/2023 11:34 AM INSECTICIDE EXPERT RH BLOOD BANK Comment:? P atient is a Weak or Partial D and will be considered Rh Positive for transfusion purposes. If frequent transfusion is anticipated, order RHD Genotype ([id number])? Antibody Screen Negative Negative 05/20/2023 11:34 AM INSECTICIDE EXPERT RH BLOOD BANK SPECIMEN EXPIRATION DATE [id number] 05/20/2023 11:34 AM INSECTICIDE EXPERT RH BLOOD BANK Blood STRUCTURE OF RIGHT UPPER LIMB / Unknown Venipuncture / Unknown 05/20/2023 11:40 AM INSECTICIDE EXPERT 05/20/2023 11:46 AM INSECTICIDE EXPERT Sara Correa MD LAB - BLOOD BANK DM T ORDER RH BLOOD BANK [address] [place] [address], [facility] * ABO and Rh (05/20/2023 11:40 AM INSECTICIDE EXPERT) SPECIMEN EXPIRATION DATE [id number] 05/20/2023 12:58 PM INSECTICIDE EXPERT RH BLOOD BANK Blood STRUCTURE OF RIGHT UPPER LIMB / Unknown Venipuncture / Unknown 05/20/2023 11:40 AM INSECTICIDE EXPERT 05/20/2023 11:46 AM INSECTICIDE EXPERT Sara Correa MD LAB - BLOOD BANK DM T ORDER Performing Organization Address [facility]/ZIP Co de Phone Number RH BLOOD BANK [address] [place] [address], [facility] * CBC with platelets (05/20/2023 11:40 AM INSECTICIDE EXPERT) WBC Count 7.5 4.0 - 11.0 10e3/uL 05/20/2023 11:48 AM INSECTICIDE EXPERT RH LABORATORY RBC Count 4.42 3.80 - 5.20 10e6/uL 05/20/2023 11:48 AM INSECTICIDE EXPERT RH LABORATORY Hemoglobin 12.9 11.7 - 15.7 g/dL 05/20/2023 11:48 AM INSECTICIDE EXPERT RH LABORATORY Hematocrit 39.8 35.0 - 47.0 % 05/20/2023 11:48 AM INSECTICIDE EXPERT RH LABORATORY MCV 90 78 - 100 fL 05/20/2023 11:48 AM INSECTICIDE EXPERT RH LABORATORY MCH 29.2 26.5 - 33.0 pg 05/20/2023 11:48 AM INSECTICIDE EXPERT RH LABORATORY MCHC 32.4 31.5 - 36.5 g/dL 05/20/2023 11:48 AM INSECTICIDE EXPERT RH LABORATORY RDW 12.7 10.0 - 15.0 % 05/20/2023 11:48 AM INSECTICIDE EXPERT RH LABORATORY Platelet Count 203 150 - 450 10e3/uL 05/20/2023 11:48 AM INSECTICIDE EXPERT RH LABORATORY Blood STRUCTURE OF RIGHT UPPER LIMB / Unknown Venipuncture / Unknown 05/20/2023 11:40 AM INSECTICIDE EXPERT 05/20/2023 11:46 AM INSECTICIDE EXPERT Sara Correa MD LAB - BLOOD ORDERABL ES RH LABORATORY [facility] Acute Care Lab [address] [facility] Lab (1st floor, no room number) [place] [address] [phone] * EKG CARDIAC - HIM SCAN (04/27/2023 12:00 AM INSECTICIDE EXPERT) Only the most recent of2 resultswithin the time period is included. 04/27/2023 Provider Outside ECG ORDERABLES from Last 3 Months Additional Health Concerns Problem Noted Date Diagnosed Date Total Joint Replacement Hip Pathway 05/10/2023 Advance Directives For more information, please contact: [phone] Latest Code Status on File Code Status Date Activated Date Inactivated Comments Full Code 05/20/2023 2:50 PM 05/21/2023 3:41 PM All basic and advanced life-sustaining interventions are performed as appropriate Question Answer Comments Code status determined by: Unable to discuss and no AD/POLST on file; continue PREVIOUSLY ORDERED code status Care Teams Varnish Maker Helper Relationship Specialty Start Date End Date Rae Dorantes MD [facility] [address] [place] [address] PCP - General Internal Medicine 04/26/23
--- OUTSIDE RECORDS SUMMARY | 2023-06-16 12:05 | XMS_ITS | Encounter Summary ---
Author Name Unknown Organization [facility] Address [address] [place] [id number] Care Team Providers Care Robot Programmer Name Role Phone Rae Dorantes MD Primary Care Provider [phone] Reason for Visit * Auth/Cert (Routine) Specialty Diagnoses / Procedures Referred By Contac t Referred To Contact Surgery Diagnoses Osteoarthritis of left hip Osteoarthritis of left hip [M16.12] Procedures DC TOTAL HIP ARTHROPLASTY Left total hip arthroplasty [facility] [address] [place] [address] Referral ID Status Reason Start Date Expiration Date Visits Re quested Visits Authorized [id number] 1 1 Encounter Details Date Type Department Care Team (Latest Contact Info) Description 05/20/2023 10:43 AM LEAD SIMULATION MODELING ENGINEER - 05/21/2023 1:[address] [facility] Hospital Encounter [facility] [address] [place] [address] Favio Gasca MD [facility] [address], [place] [address] [place] [address] Primary osteoarthritis of left hip (Primary Dx) Discharge Disposition: Home or Self Care Social History Tobacco Use Types Packs/Day Years [...] Sex Assigned at Female 05/01/2023 11:03 AM LEAD SIMULATION MODELING ENGINEER Gender Identity Female 05/01/2023 11:03 AM LEAD SIMULATION MODELING ENGINEER Sexual Orientation Not on file documented as of this encounter Last Filed Vital Signs Vital Sign Reading Time Taken Comments Blood Pressure 116/52 05/21/2023 1:00 PM LEAD SIMULATION MODELING ENGINEER Pulse 82 05/21/2023 1:00 PM LEAD SIMULATION MODELING ENGINEER Temperature 36.8 ??C (98.2 ??F) 05/21/2023 1:00 PM CS T Respiratory Rate 16 05/21/2023 1:00 PM LEAD SIMULATION MODELING ENGINEER Oxygen Saturation 98% 05/21/2023 1:00 PM LEAD SIMULATION MODELING ENGINEER Inhaled Oxygen Concentration - - Weight 111.3 kg (245 lb 4.8 oz) 023 11:14 AM LEAD SIMULATION MODELING ENGINEER Height 170.2 cm (5' 7) 05/04/2023 11:0 0 AM LEAD SIMULATION MODELING ENGINEER Body Mass Index 38.42 05/04/2023 11:00 AM LEAD SIMULATION MODELING ENGINEER documented in this encounter Medications at Time of Discharge Medication Sig Dispensed Refills Start Date End Date acetaminophen (TYLENOL) 325 MG tabletIndications:Primar y osteoarthritis of left hip Take 2 tablets (650 mg) by mouth every 4 hours as needed for other (mild pain) 60 tablet 0 05/20/2023 albuterol (PROAIR HFA/PROVENTIL HFA/VENTOLIN HFA) 108 (90 Base) MCG/ACT inhaler Inhale 2 puffs into the lungs every 6 hours as needed for shortness of breath, wheezing or cough 0 aspirin (ASA) 325 MG EC tabletIndications:Primar y osteoarthritis of left hip Take 1 tablet (325 mg) by mouth daily 42 tablet 0 05/20/2023 urkklsx-duoxcwz-mmfdvl elizabeth 4-10-30 % CREA Apply topically daily as needed 0 hydrOXYzine HCl (ATARAX) 25 MG tabletIndications:Primar y osteoarthritis of left hip Take 1 tablet (25 mg) by mouth every 6 hours as needed for itching or anxiety (with pain, moderate pain) 30 tablet 0 05/20/2023 ibuprofen (ADVIL/MOTRIN) 600 MG tablet Take 600 mg by mouth every 6 hours as needed for moderate pain 0 levothyroxine (SYNTHROID/LEVOTHROID) 150 MCG tablet Take 150 mcg by mouth daily 0 Multiple Vitamins-Minerals (MULTIVITAMIN ADULTS 50+ PO) Take 1 tablet by mouth daily 0 oxyCODONE (ROXICODONE) 5 MG tabletIndications:Primar y osteoarthritis of left hip Take 1-2 tablets (5-10 mg) by mouth every 4 hours as needed for moderate to severe pain 30 tablet 0 05/20/2023 polyethylene glycol (MIRALAX) 17 g packetIndications:Primar y osteoarthritis of left hip Take 17 g by mouth daily 7 packet 0 05/20/2023 senna-docusate (SENOKOT-S/PERICOLACE) 8.6-50 MG tabletIndications:Primar y osteoarthritis of left hip Take 1-2 tablets by mouth 2 times daily Take while on oral narcotics to prevent or treat constipation. 30 tablet 0 05/20/2023 simvastatin (ZOCOR) 10 MG tablet Take 10 mg by mouth at bedtime 0 tirzepatide (MOUNJARO) 2.5 MG/0.5ML pen Inject 2.5 mg Subcutaneous every 7 days 0 Turmeric 400 MG CAPS Take 1 capsule by mouth 2 times daily 0 valsartan-hydrochlorothi azide (DIOVAN HCT) 160-12.5 MG tablet Take 1 tablet by mouth daily 0 documented as of this encounter Progress Notes * Favio Gasca MD - 05/21/2023 12:26 PM CST ORTHOPAEDIC SURGERY STAFF PROGRESS NOTE Resting comfortably with pain medication. No overnight events. Denies chest pain, shortness of breath, lightheadedness. BP 118/56 (BP Location: Left arm) Pulse 87 Temp 97.7 ??F (36.5 ??C) (Temporal) Resp 16 Ht 1.702 m (5' 7) Wt 111.3 kg (245 lb 4.8 oz) SpO2 99% BMI 38.42 kg/m?? LLE- Dressing clean/dry/intact Compartments soft +extensor hallucis longus, flexor hallucis longus, tibialis anterior, gastroc- soleus complex, Quadriceps Sensation intact to light touch superficial peroneal, deep peroneal, sural, saphenous, tibial nerve distributions Palpable DP pulse S/P L SUDARSHAN POD 1 Doing well overall Pain control DVT ppx -ASA PT/OT WBAT Plan for D/C Home today Favio Gasca MD [facility] [place] [phone] SIMULATION MODELING ENGINEER * Karma Dumont, PT - 05/21/2023 11:37 AM CST Physical Therapy Discharge Summary Reason for therapy discharge: All goals and outcomes met, no further needs identified. Progress towards therapy goal(s). See goals on Care Plan in [facility] electronic health record for goal details. Goals met Therapy recommendation(s): Continue home exercise program. SIMULATION MODELING ENGINEER * Karma Dumont, PT - 05/21/2023 11:36 AM CST 05/21/23 09 Appointment Info Signing Clinician's Name / Credentials (PT) Karma Dumont DPT Quick Adds Quick Adds Certification Living Environment People in Home spouse Current Living Arrangements house Home Accessibility stairs to enter home;stairs within home Number of Stairs, Main Entrance 2 Stair Railings, Main Entrance (with grab bar) Number of Stairs, Within Home, Primary greater than 10 stairs Stair Railings, Within Home, Primary railings safe and in good condition Transportation Anticipated car, drives self;family or friend will provide Living Environment Comments Lives with spouse who is off next 2 weeks; prior to surgery used SPC, IND with all ADLs/IADLs; pt not working Self-Care Usual Activity Tolerance good Current Activity Tolerance good Equipment Currently Used at Home cane, straight;grab bar, toilet;grab bar, tub/shower;raised toiletseat;shower chair Fall history within last six months yes Number of times patient has fallen within last six months 1 General Information Onset of Illness/Injury or Date of Surgery 05/20/23 Referring Physician Mimi Richardson PA-C Patient/Family Therapy Goals Statement (PT) to go home today Pertinent History of Current Problem (include personal factors and/or comorbidities that impact thePOC) Pt POD #1 s/p elective L SUDARSHAN; see medical chart for further PMH Existing Precautions/Restrictions no hip IR;no hip ADD past midline;90 degree hip flexion;no pivoting or twisting Weight-Bearing Status - LLE weight-bearing as tolerated General Observations supine, very eager to participate with therapy Cognition Affect/Mental Status (Cognition) WNL Orientation Status (Cognition) oriented x 4 Follows Commands (Cognition) WNL Pain Assessment Patient Currently in Pain (states she just received pain med and feeling ok) Integumentary/Edema Integumentary/Edema Comments see wood grinder Posture Posture Forward head position Range of Motion (ROM) Range of Motion ROM deficits secondary to surgical procedure Strength (Manual Muscle Testing) Strength (Manual Muscle Testing) strength is WFL Bed Mobility Bed Mobility no deficits identified Comment, (Bed Mobility) able to transition for supine > sit with IND and within hip precautions Transfers Transfers sit-stand transfer Sit-Stand Transfer Sit-Stand [place] (Transfers) contact guard Assistive Device (Sit-Stand Transfers) walker, front-wheeled Comment, (Sit-Stand Transfer) cues for hand placement Gait/Stairs (Locomotion) [place] Level (Gait) contact guard Assistive Device (Gait) walker, front-wheeled Distance in Feet (Gait) 5' for eval, add'l >200' for treat Pattern (Gait) step-to Deviations/Abnormal Patterns (Gait) antalgic;base of support, wide;gait speed decreased Comment, (Gait/Stairs) able to ascend/descend x4 steps with B rails and CGA Balance Balance no deficits were identified Clinical Impression Criteria for Skilled Therapeutic Intervention Yes, treatment indicated PT Diagnosis (PT) decreased functional mobility Influenced by the following impairments post-op precautions, pain Functional limitations due to impairments bed mobility, transfers, ambulation, stair climbing Clinical Presentation (PT Evaluation Complexity) stable Clinical Presentation Rationale clinical judgement Clinical Decision Making (Complexity) low complexity Planned Therapy Interventions (PT) bed mobility training;gait training;home exercise program;patient/family education;ROM (range of motion);stair training;strengthening;transfer training;progressive activity/exercise;risk factor education;home program guidelines Risk & Benefits of therapy have been explained evaluation/treatment results reviewed;care plan/treatment goals reviewed;risks/benefits reviewed;current/potential barriers reviewed;participants voiced agreement with care plan;participants included;patient;spouse/significant other PT Total Evaluation Time PT Eval, Low Complexity Minutes (18064) 7 Therapy Certification Start of care date 05/21/23 Certification date from 05/21/23 Certification date to 05/21/23 Medical Diagnosis L SUDARSHAN Physical Therapy Goals PT Frequency One time eval and treatment only PT Predicted Duration/Target Date for Goal Attainment 05/21/23 PT Goals Transfers;Gait;Stairs PT: Transfers Supervision/stand-by assist;Sit to/from stand;Within precautions;Assistive device PT: Gait Supervision/stand-by assist;Rolling walker;100 feet;Within precautions PT: Stairs Minimal assist;2 stairs;Rail on right;Assistive device PT Discharge Planning PT Plan goals met, discharge PT Discharge Recommendation (DC Rec) (defer to ortho) PT Rationale for DC Rec Pt has demostrated safe mobility for discharge home. Rec spouse assist on stairs for safety and with heavier IADLs. PT Brief overview of current status mod IND with 2WW PT Equipment Needed at Discharge walker, rolling Total Session Time Timed Code Treatment Minutes 34 Total Session Time (sum of timed and untimed services) 41 [facility] OUTPATIENT PHYSICAL THERAPY EVALUATION PLAN OF TREATMENT FOR OUTPATIENT REHABILITATION (COMPLETE FOR INITIAL CLAIMS ONLY) Patient's Last Name, First Name, M.I. Date of : 1965 Essie Borges Provider's Name [facility] Onset Date: 05/20/23 Start of Care Date: 05/21/23 Type: _X_PT ___OT ___SLP Medical Diagnosis: L SUDARSHAN PT Diagnosis: decreased functional mobility Visits from SOC: 1 See note for plan of treatment, functional goals and certification details I CERTIFY THE NEED FOR THESE SERVICES FURNISHED UNDER THIS PLAN OF TREATMENT AND WHILE UNDER MY CARE (Physician co-signature of this document indicates review and certification of the therapy plan). SIMULATION MODELING ENGINEER Associated attestation - Mimi Richardson PA-C - 05/21/2023 12:38 PM LEAD SIMULATION MODELING ENGINEER Physician Attestation I agree with the information in this note. Mimi Richardson PA-C * Tomasa Wood OTR - 05/21/2023 9:46 AM CST 05/21/23 09 Appointment Info Signing Clinician's Name / Credentials (OT) Tomasa Wood OTR/L Living Environment People in Home spouse Current Living Arrangements house Living Environment Comments Spouse reports he will be available to assist for 2 weeks at discharge Self-Care Usual Activity Tolerance good Current Activity Tolerance moderate Equipment Currently Used at Home cane, straight;grab bar, tub/shower;raised toilet seat;tub bench (toilet safety frame. clamp on tub grab bar. sock aid. bull wheel worker. toilet hygiene aid. lift chair.) Fall history within last six months yes Number of times patient has fallen within last six months 1 Activity/Exercise/Self-Care Comment At baseline is independent in self-cares. Uses cane General Information Onset of Illness/Injury or Date of Surgery 05/20/23 Referring Physician Mimi Richardson PA-C Patient/Family Therapy Goal Statement (OT) Return home today Additional Occupational Profile Info/Pertinent History of Current Problem POD1 Left total hip arthroplasty Existing Precautions/Restrictions fall;no hip IR;90 degree hip flexion;no hip ADD past midline Cognitive Status Examination Affect/Mental Status (Cognitive) WFL Follows Commands WFL Visual Perception Visual Impairment/Limitations corrective lenses full-time Sensory Sensory Comments Reports baseline neuropathy in feet Pain Assessment Patient Currently in Pain Yes, see Vital Sign flowsheet Transfers Transfers toilet transfer;shower transfer Shower Transfer [place] Level (Shower Transfer) moderate assist (50% patient effort) Toilet Transfer [place] Level (Toilet Transfer) supervision Activities of Daily Living BADL Assessment/Intervention lower body dressing;toileting Lower Body Dressing Assessment/Training [place] Level (Lower Body Dressing) moderate assist (50% patient effort) (pants and shoes) Toileting [place] Level (Toileting) supervision Clinical Impression Criteria for Skilled Therapeutic Interventions Met (OT) Yes, treatment indicated OT Diagnosis Decline function OT Problem List-Impairments impacting ADL activity tolerance impaired;mobility;pain;post-surgical precautions Assessment of Occupational Performance 3-5 Performance Deficits Identified Performance Deficits LB dressing, bathing, functional mobility, strenuous IADLs Planned Therapy Interventions (OT) ADL retraining;home program guidelines;progressive activity/exercise;risk factor education Clinical Decision Making Complexity (OT) problem focused assessment/low complexity Risk & Benefits of therapy have been explained evaluation/treatment results reviewed;care plan/treatment goals reviewed;risks/benefits reviewed;current/potential barriers reviewed;participants voiced agreement with care plan;participants included;patient OT Total Evaluation Time OT Eval, Low Complexity Minutes (13971) 8 OT Goals Therapy Frequency (OT) One time eval and treatment OT Predicted Duration/Target Date for Goal Attainment 05/22/23 OT Goals Lower Body Dressing;Transfers;OT Goal 1;OT Goal 2 OT: Lower Body Dressing Minimal assist;within precautions;using adaptive equipment (pants and shoes) OT: Transfer Supervision/stand-by assist;with assistive device;within precautions (Tub transfer) OT: Goal 1 Pt will verbalize understanding of pain management strategies, how to progress activity tolerance, fall prevention Interventions Interventions Quick Adds Self-Care/Home Management Self-Care/Home Management Self-Care/Home Mgmt/ADL, Compensatory, Meal Prep Minutes (49689) 25 Symptoms Noted During/After Treatment (Meal Preparation/Planning Training) fatigue;increased pain Treatment Detail/Skilled Intervention Upon arrival pt very agreeable to therapy. Spouse present andsupportive. Pt participated in lengthy education regarding pain management strategies, how to progress activity tolerance, fall prevention. Pt required cues to fully recall all hip precautions and participated in demonstration regarding 90 degree hip flexion precaution. Pt donned pants and slip on shoes with Jo and cues for technique using bull wheel worker. During session pt completed sit to/from stand with SBA and intermittent cues to kick out LLE prior to sitting. Completed ambulation with SBA with FWW and cues to place minimal weight on hands. Pt participated in education and demonstration regarding tub transfer using extended tub bench within precautions and then returned demonstration with SBA. Pt requires increased time and effort for all activity. Pt and spouse verbalize understanding of all education and deny questions or concerns regarding discharge home. Collaborated with RN that pt can be independent in the room and bathroom with spouse present OT Discharge Planning OT Plan DC OT Rationale for DC Rec Defer to ortho. At discharge anticipate pt will require Jo with bathing and LB dressing and assist with strenuous IADLs (cooking, cleaning, laundry, etc). Pt and spouse confirm this level of assist is possible at discharge. OT Equipment Needed at Discharge (nonslip tub floor) Total Session Time Timed Code Treatment Minutes 25 Total Session Time (sum of timed and untimed services) 33 Occupational Therapy Discharge Summary Reason for therapy discharge: All goals and outcomes met, no further needs identified. Progress towards therapy goal(s). See goals on Care Plan in Epic electronic health record for goal details. Goals met Therapy recommendation(s): Defer to ortho. At discharge anticipate pt will require Jo with bathing and LB dressing and assist with strenuous IADLs (cooking, cleaning, laundry, etc). Pt and spouse confirm this level of assistis possible at discharge. SIMULATION MODELING ENGINEER documented in this encounter Consult Notes * Radha Tesfaye RN - 05/21/2023 1:41 PM CSTAssociated Order(s): CARE MANAGEMENT / SOCIAL WORK IP CONSULT Care Management Discharge Note Discharge Date: 05/21/2023 Discharge Disposition: home w assist Discharge Services: Discharge DME: Discharge Transportation: car, drives self, family or friend will provide Private pay costs discussed: Not applicable Does the patient's insurance plan have a 3 day qualifying hospital stay waiver? No Education Provided on the Discharge Plan: no Persons Notified of Discharge Plans: aware Patient/Family in Agreement with the Plan: yes Handoff Referral Completed: No Additional Information: Patient discharged to home w assist of spouse. PT recommends home with assist. No other CM needs. Consult cleared. Elif Tesfaye RN, BSN, CM Inpatient Care Coordination [facility] [phone] SIMULATION MODELING ENGINEER documented in this encounter Miscellaneous Notes * Plan of Care - Delmi Perrin RN - 05/21/2023 12:39 PM CST Goal Outcome Evaluation: Pt alert and oriented. Up with 1 assist gait belt and walker. Met with PT/OT and up in halls ambulating with . Pain 6 left hip which is helped with ice, atarax, tylenol and oxy. Discharge info gone over with pt and no further questions. Meds filled here and sent home with pt. Ready for discharge. SIMULATION MODELING ENGINEER * Plan of Care - Poornima Butt RN - 05/21/2023 6:11 AM CST Goal Outcome Evaluation: Plan of Care Reviewed With: patient Overall Patient Progress: improving Patient vital signs are at baseline: soft BP's, pt asymptomatic Patient able to ambulate as they were prior to admission or with assist devices provided by therapies during their stay: No, Reason: 1A, Gb, walker to bedside commode. Ambulation encouraged Patient MUST void prior to discharge: Yes Patient able to tolerate oral intake: Yes, no N/V. Tolerating regular diet Pain has adequate pain control using Oral analgesics: Yes, scheduled Tylenol and PRN Oxycodone Does patient have an identified health coach: Yes, spouse Has goal D/C date and time been discussed with patient: Yes, goal is to discharge home after today after therapy SIMULATION MODELING ENGINEER * Plan of Care - Nolvia Alicea RN - 05/20/2023 9:24 PM CST Patient vital signs are at baseline: Yes, on capno monitoring, sats 90's. Patient able to ambulate as they were prior to admission or with assist devices provided by therapies during their stay: Yes, up to bedside using walker and gait belt, assist of 2. Patient MUST void prior to discharge: Yes, voided per commode. Patient able to tolerate oral intake: Yes, c/o nausea, given iv zofran with relief. Diet tolerated. Pain has adequate pain control using Oral analgesics: Yes, tylenol, vistaril , iv dilaudid and oxycodone with relief. Does patient have an identified health coach: Yes, spouse. Has goal D/C date and time been discussed with patient: Yes, plan for home in am. Goal Outcome Evaluation: Plan of Care Reviewed With: patient SIMULATION MODELING ENGINEER * Op Note - Favio Gasca MD - 05/20/2023 2:50 PM CST Preoperative diagnosis: End stage osteoarthritis left hip Postoperative diagnosis: As above Procedure: Left total hip arthoplasty Surgeon: Favio Gasca MD Office Machines Teacher: Mimi Richardson PA-C A physicians nutrition assistant was available for the surgery and participated to decrease the patient's morbidity by assisting with positioning, manipulation of the limb during the procedure, surgical retraction as necessary, closure of the surgical wound and transferring the patient back to a hospital bed Anesthesia: Spinal Estimated blood loss: 200 cc Complications: None readily apparent Indication for Procedure Essie Borges is a 57 year old female who had a long history of issues with left hip pain. Theyhad undergone conservative management including weight loss counseling, physical therapy, corticosteroid injections, and pain medicine. The nature of the arthritis was such that the left hip pain wasrefractory to the above modalities. X-rays and physical examination are consistent with end-stage osteoarthritis of the hip. As this has been refractory to conservative management, the risks, benefits and alternatives to total hip arthroplasty were discussed with the patient. This included but was not limited to continued postoperative pain, leg-length discrepancy, dislocating total hip, prosthetic joint infection, injury to neurovascular structures and thromboembolic events. The patient was inagreement and thus, was brought to the hospital for a left total hip arthroplasty today. Description of Procedure Tamiko was met in the preoperative area by myself. Informed consent was obtained as outlined above. The patient was in agreement. Thus, initials were placed on the right hip indicating the correct operative extremity. The patient was then brought to the operating room where a spinal anesthetic was induced by the Anesthesia Service. This was successful. The patient was then placed in lateral decubitus position on the operating table taking care to well pad all bony prominences. The right hip was prepped and draped in sterile fashion, and a time-out was called by the surgical team. All in attendance were in agreement that the left hip was the correct operative extremity. The correct patient, late rality, hospital identification number and procedure were confirmed. One gram of TXA was administered as well as preoperative antibiotics in accordance with SCIP protocols. A longitudinal incision centered over the greater trochanter was carried sharply through the skin, subcutaneous tissue and down to the fascia. The fascia was split in line with the IT band and fibers of the gluteus maite were bluntly divided. Crossing vessels were identified and coagulated. A Charnley retractor was placed after palpating and confirming the sciatic nerve was safe. Bursal tissue was lifted and the short external rotators and piriformis were identified and the piriformis and conjoined tendon were released tagged for later repair. A posterior capsulotomy was then performed and tagged for repair. The hip was dislocated, the femoral head and acetabulum were inspected and noted to have extensive arthriticchanges. A femoral neck osteotomy was then performed at the preoperatively templated level. The femoral head was removed with a step drill. An anterior retractor was placed. Subsequently, the inferior capsule was then released in an inside-out fashion from the center point of the OWEN in the standard fashion. Acetabular retractors were placed exposing the acetabulum. The pulvinar tissue was excised. The labrum was excised sharply. Reaming of the acetabulum was initially medial to the floor of the acetabulum and then sequentially reamed up in 2 mm increments in line with the planned position of the cup. Reaming commenced to provide excellent anterior-posterior fit. Subsequently, a 52 mm cup was impacted into place. Acetabular fixation screws were then placed. The polyethylene liner was then placed and the tabs were engaged and impacted into position. All 4 quadrants of both the cup and polyethylenewere stressed confirming appropriate stability and engagement of the locking mechanism. Acetabular retractors were removed. The hip was internally rotated the proximal femur retractors were placed. A box osteotome and rongeur were used to remove any shoulder of the lateral femoral neck remnant. The Charnley awl was used to engage the femoral canal. Broaching commenced up to a size 6 broach which seated fully and had excellent rotational stability. Trial head and neck were placed and the hip was reduced. The hip was trialed and stability was assessed with internal rotation at 90?? of flexion position of sleep external rotation in full extension. Trial components were removed and final components were impacted into place. The hip was copiously irrigated and the acetabulum was dried hand with both digital and visual inspection showed to be clear of any debris. The hip was then relocated. Final stability testing was carried out and of standing that stability in all positions was again noted. The hip was copiously irrigated with dilute Betadine solution and sterile saline. The posterior capsule and piriformis tendon were repaired through bone tunnels using #2 Ethibond sutures. A periarticular cocktail was injected in the soft tissues. The fascia was closed with Strata fix and oversewn with the interrupted 0 Vicryl. 0 Vicryl was were used to close the Lana's fascia interrupted and 2-0 Vicryl for the deep dermal layer. A running 3-0 Monocryl was used in a subcuticular fashion along with Dermabond over the skin. An aquacel dressing was applied. All needle, sponge and instrument counts were correct at the end of the case in accordance with hospital protocol. The patient was aroused from sedation and transferred to the PACU in good condition with no apparent intraoperative or postoperative complications. Postoperative Plan Essie Borges will be weightbearing as tolerated. Will undergo a physical therapy regimen latertoday. She plans to discharge home. DVT prophylaxis will be Asprin 81 MG BID Implants Winnie Insignia size 6 stem, size 52 mm Tritainium II acetabular shell, a Trident X3 polyethylene liner for a 36mm head, and a Biolox 36, -2.5mm ceramic head. The acetabular shell was secured with 2-6.5 cancellous screws. SIMULATION MODELING ENGINEER * Brief Op Note - Favio Gasca MD - 05/20/2023 2:49 PM CST [facility] Brief Operative Note Pre-operative diagnosis: Osteoarthritis of left hip [M16.12] Post-operative diagnosis Same as pre-operative diagnosis Procedure: Left total hip arthroplasty, Left - Hip Surgeon: Surgeon(s) and Role: * Favio Gasca MD - Primary * Mimi Richardson PA-C - Assisting Anesthesia: Spinal Estimated Blood Loss: 200 mL from 05/20/2023 1:06 PM to 05/20/2023 2:38 PM Drains: None Specimens: * No specimens in log * Findings: None. Complications: None. Implants: Implant Name Type Inv. Item Serial No. Retrieval Specialist Lot No. LRB No. Used Action TRIDENT II TRITANIUM CLUSTERHOLE 52E - [id number] Total Joint Component/Insert TRIDENT II TRITANIUMCLUSTERHOLE 52E [employer] [id number] Left 1 Implanted INSERT ACTB 10DEG 36MM 0D E HIP X3 TRDNT STRL LF - [id number] Total Joint Component/Insert INSERT ACTB 10DEG 36MM 0D E HIP X3 TRDNT STRL LF [employer]EL Serveron [id number] Left 1 Implanted IMP SCR STRK LOW PROFILE HEX 6.5X30MM [id number] - [id number] Metallic Hardware/Rawson IMP SCR STRK LOW PROFILE HEX 6.5X30MM [id number] [employer] [id number] Left 2 Implanted Insignia hip stem, standard offset, size 6, 35mm x 107mm Total Joint Component/Insert KEL [id number] Left 1 Implanted IMP HEAD FEMORAL STRK BIOLOX DELTA CERAMIC V40 36MM - [id number] Total Joint Component/Insert IMP HEAD FEMORAL STRK BIOLOX DELTA CERAMIC V40 36MM [employer] [id number] Left 1 Implanted SIMULATION MODELING ENGINEER * Pharmacy-Admission Medication History - Frida Colin [facility] - 05/18/2023 2:18 PM CST Admission Medication History Nurse Chaparrita Gabriel RN WedApr 23, 2023 1:51 PM Prior to Admission medications Medication Sig Last Dose Taking? albuterol (PROAIR HFA/PROVENTIL HFA/VENTOLIN HFA) 108 (90 Base) MCG/ACT inhaler Inhale 2 puffs intothe lungs every 6 hours as needed for shortness of breath, wheezing or cough More than a month Yes lkrirti-pchveab-orjgvk elizabeth 4-10-30 % CREA Apply topically daily as needed Yes ibuprofen (ADVIL/MOTRIN) 600 MG tablet Take 600 mg by mouth every 6 hours as needed for moderate pain Yes levothyroxine (SYNTHROID/LEVOTHROID) 150 MCG tablet Take 150 mcg by mouth daily Yes Multiple Vitamins-Minerals (MULTIVITAMIN ADULTS 50+ PO) Take 1 tablet by mouth daily Yes simvastatin (ZOCOR) 10 MG tablet Take 10 mg by mouth at bedtime Yes tirzepatide (MOUNJARO) 2.5 MG/0.5ML pen Inject 2.5 mg Subcutaneous every 7 days Yes Turmeric 400 MG CAPS Take 1 capsule by mouth 2 times daily Yes valsartan-hydrochlorothiazide (DIOVAN HCT) 160-12.5 MG tablet Take 1 tablet by mouth daily Yes SIMULATION MODELING ENGINEER documented in this encounter Plan of Treatment Not on file documented as of this encounter Procedures Procedure Name Priority Date/Time Associated Diagnosis Comments HEMOGLOBIN Routine 05/21/2023 6:51 AM LEAD SIMULATION MODELING ENGINEER GLUCOSE Routine 05/21/2023 6:51 AM LEAD SIMULATION MODELING ENGINEER GLUCOSE BY METER Routine 05/21/2023 1:22 AM LEAD SIMULATION MODELING ENGINEER GLUCOSE BY METER Routine 05/20/2023 9:37 PM LEAD SIMULATION MODELING ENGINEER GLUCOSE BY METER Routine 05/20/2023 5:32 PM LEAD SIMULATION MODELING ENGINEER XR PELVIS AND HIP PORTABLE LEFT 1 VIEW STAT 05/20/2023 3:29 PM LEAD SIMULATION MODELING ENGINEER GLUCOSE BY METER Routine 05/20/2023 2:48 PM LEAD SIMULATION MODELING ENGINEER ARTHROPLASTY, HIP, TOTAL 05/20/2023 12:51 PM LEAD SIMULATION MODELING ENGINEER Osteoarthritis of left hip Special Needs MB -No (BMI) GLUCOSE BY METER Routine 05/20/2023 11:4 3 AM LEAD SIMULATION MODELING ENGINEER TYPE AND SCREEN, ADULT STAT 05/20/2023 11:40 AM LEAD SIMULATION MODELING ENGINEER ABO/RH TYPE AND SCREEN STAT 05/20/2023 11:40 AM LEAD SIMULATION MODELING ENGINEER ABO AND RH STAT 05/20/2023 11:40 AM LEAD SIMULATION MODELING ENGINEER CBC WITH PLATELETS STAT 05/20/2023 11 :40 AM LEAD SIMULATION MODELING ENGINEER EKG CARDIAC - HIM SCAN 04/27/2023 12:00 AM LEAD SIMULATION MODELING ENGINEER EKG CARDIAC - HIM SCAN 04/27/2023 12:00 AM LEAD SIMULATION MODELING ENGINEER documented in this encounter Results * (ABNORMAL) Hemoglobin (05/21/2023 6:51 AM LEAD SIMULATION MODELING ENGINEER) Hemoglobin 10.2(L) 11.7 - 15.7 g/dL 05/21/2023 6:59 AM LEAD SIMULATION MODELING ENGINEER RH LABORATORY Blood STRUCTURE OF RIGHT UPPER LIMB / Unknown Venipuncture / Unknown 05/21/2023 6:51 AM LEAD SIMULATION MODELING ENGINEER 05/21/2023 6:54 AM LEAD SIMULATION MODELING ENGINEER Mimi Richardson PA-C LAB - BLOOD ORDERABL ES LABORATORY [facility] Lab [address] Lab (1st floor, no room number) [place] [address], [place] [phone] * (ABNORMAL) Glucose (05/21/2023 6:51 AM LEAD SIMULATION MODELING ENGINEER) Glucose 103(H) 70 - 99 mg/dL 05/21/2023 7:14 AM LEAD SIMULATION MODELING ENGINEER [facility] LABORATORY Patient Fasting > 8hrs? Yes 05/21/2023 7:14 AM LEAD SIMULATION MODELING ENGINEER LABORATORY Blood STRUCTURE OF RIGHT UPPER LIMB / Unknown Venipuncture / Unknown 05/21/2023 6:51 AM LEAD SIMULATION MODELING ENGINEER 05/21/2023 6:54 AM LEAD SIMULATION MODELING ENGINEER Favio Gasca MD LAB - BLOOD ORDE RABCHARLEE Performing Organization Address City/[facility]/ZIP Co de Phone Number [facility] Lab [address] Lab (1st floor, no room number) [place] [address], [place] [phone] * (ABNORMAL) Glucose by meter (05/21/2023 1:22 AM LEAD SIMULATION MODELING ENGINEER) GLUCOSE BY METER POCT 129(H) 70 - 99 mg/dL 05/21/2023 1:28 AM LEAD SIMULATION MODELING ENGINEER LABORATORY POC Blood, Capillary BLOOD SPECIMEN / Unknown 05/21/2023 1:22 AM LEAD SIMULATION MODELING ENGINEER 05/21/2023 1:28 AM LEAD SIMULATION MODELING ENGINEER Favio Gasca MD LAB - [place] POC T LABORATORY [facility] Lab [address] Lab (1st floor, no room number) [place] [address], [facility] [phone] * (ABNORMAL) Glucose by meter (05/20/2023 9:37 PM LEAD SIMULATION MODELING ENGINEER) GLUCOSE BY METER POCT 143(H) 70 - 99 mg/dL 05/20/2023 9:44 PM LEAD SIMULATION MODELING ENGINEER LABORATORY POC Blood, Capillary BLOOD SPECIMEN / Unknown 05/20/2023 9:37 PM LEAD SIMULATION MODELING ENGINEER 05/20/2023 9:44 PM LEAD SIMULATION MODELING ENGINEER Favoi Gasca MD LAB - [facility] POC T LABORATORY [facility] Lab [address] Lab (1st floor, no room number) [place] [address], [facility] [phone] * (ABNORMAL) Glucose by meter (05/20/2023 5:32 PM LEAD SIMULATION MODELING ENGINEER) GLUCOSE BY METER POCT 150(H) 70 - 99 mg/dL 05/20/2023 5:39 PM LEAD SIMULATION MODELING ENGINEER LABORATORY POC Blood, Capillary BLOOD SPECIMEN / Unknown 05/20/2023 5:32 PM LEAD SIMULATION MODELING ENGINEER 05/20/2023 5:39 PM LEAD SIMULATION MODELING ENGINEER Favio Gasca MD LAB - [place] POC T LABORATORY [facility] Lab [address] Lab (1st floor, no room number) [place] [address], [facility] [phone] * XR Pelvis w Hip Port Left 1 View (05/20/2023 3:29 PM LEAD SIMULATION MODELING ENGINEER) Anatomical Region Laterality Modality Abdomen/Pelvis Left Digital Radiogra phy Impressions 05/20/2023 3:33 PM LEAD SIMULATION MODELING ENGINEER Impression: 1. ??Completed left total hip arthroplasty. Normal joint alignment. No evidence of periprostatic fracture or other immediate complication. Postoperative air in the surrounding soft tissues. 2. ??Advanced degenerative arthritic changes in the right hip. RICHIE SCHRADER MD SYSTEM ID: ??[id number] Narrative 05/20/2023 3:33 PM LEAD SIMULATION MODELING ENGINEER Examination: ??XR PELVIS AND HIP PORTABLE LEFT [...] right hip. RICHIE SCHRADER MD SYSTEM ID: [id number] Mimi Richardson PA-C IMG DIAGNOSTIC IMAGI NG ORDERABLES * (ABNORMAL) Glucose by meter (05/20/2023 2:48 PM LEAD SIMULATION MODELING ENGINEER) GLUCOSE BY METER POCT 123(H) 70 - 99 mg/dL 05/20/2023 2:55 PM LEAD SIMULATION MODELING ENGINEER LABORATORY POC Blood, Capillary BLOOD SPECIMEN / Unknown 05/20/2023 2:48 PM LEAD SIMULATION MODELING ENGINEER 05/20/2023 2:55 PM LEAD SIMULATION MODELING ENGINEER Favio Gasca MD LAB - [facility] T LABORATORY POC [facility] Lab [address] [facility] Lab (1st floor, no room number) [place] [address], [facility] [phone] * Glucose by meter (05/20/2023 11:43 AM LEAD SIMULATION MODELING ENGINEER) GLUCOSE BY METER POCT 98 70 - 99 mg/dL 05/20/2023 11:50 AM LEAD SIMULATION MODELING ENGINEER LABORATORY POC Comment:Dr/RN Notified Blood, Capillary BLOOD SPECIMEN / Unknown 05/20/2023 11:43 AM LEAD SIMULATION MODELING ENGINEER 05/20/2023 11:50 AM LEAD SIMULATION MODELING ENGINEER Favio Gasca MD LAB - [place] POC T RH LABORATORY [facility] Acute Care Lab [address] Lab (1st floor, no room number) [place] [address], [facility] [phone] * ABO and Rh (05/20/2023 11:40 AM LEAD SIMULATION MODELING ENGINEER) SPECIMEN EXPIRATION DATE [id number] 05/20/2023 12:58 PM LEAD SIMULATION MODELING ENGINEER RH BLOOD BANK Blood STRUCTURE OF RIGHT UPPER LIMB / Unknown Venipuncture / Unknown 05/20/2023 11:40 AM LEAD SIMULATION MODELING ENGINEER 05/20/2023 11:46 AM LEAD SIMULATION MODELING ENGINEER Sara Correa MD LAB - BLOOD BANK DM T ORDER Performing Organization Address [facility] Co de Phone Number RH BLOOD BANK [address] [place] [address], [facility] * Adult Type and Screen (05/20/2023 11:40 AM LEAD SIMULATION MODELING ENGINEER) ABO/RH(D) A POS 05/20/2023 11:34 AM LEAD SIMULATION MODELING ENGINEER RH BLOOD BANK Comment:? P atient is a Weak or Partial D and will be considered Rh Positive for transfusion purposes. If frequent transfusion is anticipated, order RHD Genotype ([id number])? Antibody Screen Negative Negative 05/20/2023 11:34 AM LEAD SIMULATION MODELING ENGINEER RH BLOOD BANK SPECIMEN EXPIRATION DATE [id number] 05/20/2023 11:34 AM LEAD SIMULATION MODELING ENGINEER RH BLOOD BANK Blood STRUCTURE OF RIGHT UPPER LIMB / Unknown Venipuncture / Unknown 05/20/2023 11:40 AM LEAD SIMULATION MODELING ENGINEER 05/20/2023 11:46 AM LEAD SIMULATION MODELING ENGINEER Sara Correa MD LAB - BLOOD BANK DM T ORDER Performing Organization Address [facility] Co de Phone Number RH BLOOD BANK [address] [place] [address], [facility] * CBC with platelets (05/20/2023 11:40 AM LEAD SIMULATION MODELING ENGINEER) WBC Count 7.5 4.0 - 11.0 10e3/uL 05/20/2023 11:48 AM LEAD SIMULATION MODELING ENGINEER RH LABORATORY RBC Count 4.42 3.80 - 5.20 10e6/uL 05/20/2023 11:48 AM LEAD SIMULATION MODELING ENGINEER RH LABORATORY Hemoglobin 12.9 11.7 - 15.7 g/dL 05/20/2023 11:48 AM LEAD SIMULATION MODELING ENGINEER RH LABORATORY Hematocrit 39.8 35.0 - 47.0 % 05/20/2023 11:48 AM LEAD SIMULATION MODELING ENGINEER RH LABORATORY MCV 90 78 - 100 fL 05/20/2023 11:48 AM LEAD SIMULATION MODELING ENGINEER RH LABORATORY MCH 29.2 26.5 - 33.0 pg 05/20/2023 11:48 AM LEAD SIMULATION MODELING ENGINEER RH LABORATORY MCHC 32.4 31.5 - 36.5 g/dL 05/20/2023 11:48 AM LEAD SIMULATION MODELING ENGINEER RH LABORATORY RDW 12.7 10.0 - 15.0 % 05/20/2023 11:48 AM LEAD SIMULATION MODELING ENGINEER [facility] LABORATORY Platelet Count 203 150 - 450 10e3/uL 05/20/2023 11:48 AM LEAD SIMULATION MODELING ENGINEER [facility] LABORATORY Blood STRUCTURE OF RIGHT UPPER LIMB / Unknown Venipuncture / Unknown 05/20/2023 11:40 AM LEAD SIMULATION MODELING ENGINEER 05/20/2023 11:46 AM LEAD SIMULATION MODELING ENGINEER Sara Correa MD LAB - BLOOD ORDERABL ES RH LABORATORY [facility] [address] ([facility], no room number) [place] [address], [facility] [phone] * EKG CARDIAC - HIM SCAN (04/27/2023 12:00 AM LEAD SIMULATION MODELING ENGINEER) 04/27/2023 Provider Outside ECG ORDERABLES * EKG CARDIAC - HIM SCAN (04/27/2023 12:00 AM LEAD SIMULATION MODELING ENGINEER) 04/27/2023 Provider Outside ECG ORDERABLES documented in this encounter Visit Diagnoses Diagnosis S/P total left hip arthroplasty- Primary Primary osteoarthritis of left hip Primary localized osteoarthrosis, pelvic region and thigh documented in this encounter Admitting Diagnoses Diagnosis S/P total left hip arthroplasty documented in this encounter Administered Medications Inactive Administered Medications - up to 3 most recent administrations Medication Order MAR Action Action Date Dose Rate Site acetaminophen (TYLENOL) tablet 650 mg 650 mg, Oral, EVERY 4 HOURS PRN, other, For optimal non-opioid multimodal pain management to improve pain control., Starting on [place] 05/23/23 at 0000, May give first dose 4 hours after last scheduled dose of acetaminophen (TYLENOL). Maximum acetaminophen dose from all sources = 75 mg/kg/day not to exceed 4 grams/day. acetaminophen (TYLENOL) tablet 975 mg 975 mg, Oral, EVERY 8 HOURS, First dose on [place] 05/20/23 at 1500, For 3 days, Administer for multimodal surgical pain management. Maximum acetaminophen dose from all sources = 75 mg/kg/day not to exceed 4 grams/day. $Given 05/21/2023 7:52 AM LEAD SIMULATION MODELING ENGINEER 975 mg $Given 05/21/2023 1:32 AM LEAD SIMULATION MODELING ENGINEER 975 mg $Given 05/20/2023 5:25 PM LEAD SIMULATION MODELING ENGINEER 975 mg aspirin (ASA) EC tablet 325 mg 325 mg, Oral, DAILY, First dose on [place] 05/20/23 at 1500, Indications: VTE Prophylaxis, DO NOT CRUSH. DO NOT CRUSH. $Given 05/21/2023 7:44 AM LEAD SIMULATION MODELING ENGINEER 325 mg $Given 05/20/2023 5:25 PM LEAD SIMULATION MODELING ENGINEER 325 mg benzocaine-menthol (CHLORASEPTIC) 6-10 MG lozenge 1 lozenge 1 lozenge, Buccal, EVERY 1 HOUR PRN, sore throat, sore throat without fever, Starting on [place] 05/20/23 at 1449 bisacodyl (DULCOLAX) suppository 10 mg 10 mg, Rectal, DAILY PRN, constipation, Use if Magnesium hydroxide (MILK of MAGNESIA) not effective after 24 hours. May discontinue if patient having bowel movement., Starting on [place] 05/20/23 at 1449, Hold for loose stools. ceFAZolin (ANCEF) 2 g in 100 mL D5W intermittent infusion Routine, 2 g, Intravenous, EVERY 8 HOURS, First dose on [place] 05/20/23 at 2100, For 2 doses, First post-op dose due 8 hours after intra-op dose, see eMAR. , Indications: Perioperative Pharmacoprophylaxis $New Bag 05/21/2023 5:18 AM LEAD SIMULATION MODELING ENGINEER 2 g 200 mL/hr $New Bag 05/20/2023 10:05 PM LEAD SIMULATION MODELING ENGINEER 2 g 200 mL/hr famotidine (PEPCID) injection 20 mg 20 mg, Intravenous, Administer over 2 Minutes, 2 TIMES DAILY, First dose on [place] 05/20/23 at 2000, If unable to take oral For ordered IV doses 1-20 mg, give IV Push diluted with 5-10 mL NS over a minimum of 2 minutes. famotidine (PEPCID) tablet 20 mg 20 mg, Oral, 2 TIMES DAILY, First dose on [facility] 05/20/23 at 2000 $Given 05/21/2023 7:44 AM LEAD SIMULATION MODELING ENGINEER 20 mg $Given 05/20/2023 7:48 PM LEAD SIMULATION MODELING ENGINEER 20 mg fentaNYL (PF) (SUBLIMAZE) injection 50 mcg 50 mcg, Intravenous, EVERY 5 MIN PRN, severe pain, Give fentaNYL (SUBLIMAZE) first if HYDROmorphone (DILAUDID) also ordered., Starting on [place] 05/20/23 at 1450, Administer fentaNYL (SUBLIMAZE) for acute pain control. Move to HYDROmorphone (DILAUDID): - IF patient has received up to 200 mcg of fentaNYL (SUBLIMAZE), OR - IF patient has received 2 doses of fentaNYL (SUBLIMAZE) AND continues to have severe pain (pain score greater than or equal to seven (7) or is unable to participate in post op recovery due to pain. Wait 5 minutes AFTER last fentaNYL (SUBLIMAZE) dose before administering HYDROmorphone (DILADUDID). Postop Anesthesia Phase I only. Notify Provider to assess for uncontrolled pain or analgesic side effects. DO NOT revert back to fentanyl (SUBLIMAZE) after administering HYDROmorphone (DILAUDID)., PACU $Given 05/20/2023 2:59 PM LEAD SIMULATION MODELING ENGINEER 50 mcg $Given 05/20/2023 2:50 PM LEAD SIMULATION MODELING ENGINEER 50 mcg HYDROmorphone (DILAUDID) injection 0.2 mg 0.2 mg, Intravenous, EVERY 2 HOURS PRN, moderate pain, Starting on [place] 23 at 1449, IF patient unable to take oral pain medication or pain not controlled with oral analgesics. Hold IV PRN opioid dose for analgesic side effects. Notify provider to assess for uncontrolled pain or analgesic side effects. $Given 05/20/2023 6:03 PM LEAD SIMULATION MODELING ENGINEER 0.2 mg HYDROmorphone (DILAUDID) injection 0.4 mg 0.4 mg, Intravenous, EVERY 5 MIN PRN, severe pain, Starting on [place] 05/20/23 at 1450, Use FentaNYL (SUBLIMAZE) first if ordered. Maximum total cumulative dose NOT to exceed 2 mg. DO NOT revert back to fentanyl (SUBLIMAZE) after administering HYDROmorphone (DILAUDID). Notify Provider to assess for uncontrolled pain or analgesic side effects., PACU $Given 05/20/2023 3:41 PM LEAD SIMULATION MODELING ENGINEER 0.4 mg $Given 05/20/2023 3:31 PM LEAD SIMULATION MODELING ENGINEER 0.4 mg $Given 05/20/2023 3:15 PM LEAD SIMULATION MODELING ENGINEER 0.4 mg HYDROmorphone (DILAUDID) injection 0.4 mg 0.4 mg, Intravenous, EVERY 2 HOURS PRN, severe pain, Starting on [place] 05/20/23 at 1449, IF patient unable to take oral pain medication or pain not controlled with oral analgesics. Hold IV PRN opioid dose for analgesic side effects. Notify provider to assess for uncontrolled pain or analgesic side effects. hydrOXYzine HCl (ATARAX) tablet 25 mg 25 mg, Oral, EVERY 6 HOURS PRN, other, adjuvant pain, Starting on [place] 05/20/23 at 1449, Allergy to Cetirizine reported (tongue swelling). CROSS SENSITIVITY BETWEEN CETIRIZINE AND HYDROXYZINE MAY OCCUR. MONITOR pt CLOSELY $Given 05/21/2023 7:45 AM LEAD SIMULATION MODELING ENGINEER 25 mg $Given 05/20/2023 6:03 PM LEAD SIMULATION MODELING ENGINEER 25 mg lactated ringers infusion at 100 mL/hr, Intravenous, CONTINUOUS, Continue until IV catheter is weaned, PACU, Starting on [place] 05/20/23 at 1500, Until [place] 05/20/23 at 1653 $New Bag 05/20/2023 2:54 PM LEAD SIMULATION MODELING ENGINEER 100 mL/hr lactated ringers infusion at 10 mL/hr, Intravenous, CONTINUOUS, IF patient NOT on dialysis., Pre-procedure, Starting on [place] 05/20/23 at 1200, Until [place] 05/20/23 at 1439 $New Bag 05/20/2023 12:26 PM LEAD SIMULATION MODELING ENGINEER 10 mL/hr lactated ringers infusion at 50 mL/hr, Intravenous, CONTINUOUS, IF overnight stay, continue IV fluids until 0400 POD #1, then may saline lock if tolerating oral fluids. IF Day of Surgery Discharge, continue IV Fluids until one hour before discharge., Starting on [place] 05/20/23 at 1500, Until Wed05/21/23 at 1546 Rate/Dose Verify 05/20/2023 5:16 PM LEAD SIMULATION MODELING ENGINEER 50 mL/hr lidocaine (LMX4) cream Topical, EVERY 1 HOUR PRN, pain, with VAD insertion, Starting on [place] 05/20/23 at 1449, Apply at least 30 minutes prior to VAD insertion in divided doses as needed for size of site for insertion. MAX Dose: 2.5 g (?? of 5 g tube) Do NOT give if patient has a history of allergy to any local anesthetic or any noe product. Do NOT use both lidocaine intradermal/subcutaneous injection and the lidocaine cream on the same site. lidocaine 1 % 0.1-1 mL 0.1-1 mL, Other, EVERY 1 HOUR PRN, mild pain with VAD insertion, Starting on [place] 05/20/23 at 1449, MAX dose 1 mL subcutaneous OR intradermal along the side of the vein in divided doses as needed for VAD insertion. Do NOT give if patient has a history of allergy to any local anesthetic or any noe product. Do NOT use both lidocaine intradermal/subcutaneous injection and the lidocaine cream on the same site. LORazepam (ATIVAN) tablet 1 mg 1 mg, Oral, ONCE PRN, anxiety, Starting on [place] 05/20/23 at 1514, For 1 dose, PACU $Given 05/20/2023 3:22 PM LEAD SIMULATION MODELING ENGINEER 1 mg magnesium hydroxide (MILK OF MAGNESIA) suspension 30 mL 30 mL, Oral, DAILY PRN, constipation, Use if preventive measures (senna-docusate, docusate, and polyethylene glycol) are not effective., Starting on [place] 05/20/23 at 1449, Shake well. Hold for loose stools. naloxone (NARCAN) injection 0.2 mg 0.2 mg, Intravenous, EVERY 2 MIN PRN, opioid reversal, Starting on [place] 05/20/23 at 1658, Administer intravenous route when available and notify provider when administered. For unintended sedation or respiratory depression if all of the below criteria are met: ~ respiratory rate LESS than or EQUAL to 8. ~SaO2 less than 92% and or/end-tidal CO2 is greater than 50. ~ the patient is receiving an opioid, has unintended sedations assessed as RASS (-3), and is currently not on mechanical ventilation. RASS scale moderate (-3) is movement or eye opening to voice but no eye contact. Patient Monitoring Once the patient has demonstrated a response to the naloxone, continue to monitor respiratory rate, depth, oxygen saturation and end-tidal CO2 (if available) every 15 minutes x 2, then every 30 minutes x 2, then every 1 hour x 1 after each naloxone dose. Consider transfer to ICU if patient respiratory parameters have not improved after 4 naloxone doses. naloxone (NARCAN) injection 0.2 mg 0.2 mg, Intramuscular, EVERY 2 MIN PRN, opioid reversal, Starting on [place] 05/20/23 at 1658, Administer intramuscular if an intravenous route is not available and notify provider when administered. For unintended sedation or respiratory depression if all of the below criteria are met: ~ respiratory rate LESS than or EQUAL to 8. ~SaO2 less than 92% and or/end-tidal CO2 is greater than 50. ~ the patient is receiving an opioid, has unintended sedations assessed as RASS (-3), and is currently not on mechanical ventilation. RASS scale moderate (-3) is movement or eye opening to voice but no eye contact. Patient Monitoring Once the patient has demonstrated a response to the naloxone, continue to monitor respiratory rate, depth, oxygen saturation and end-tidal CO2 (if available) every 15 minutes x 2, then every 30 minutes x 2, then every 1 hour x 1 after each naloxone dose. Consider transfer to ICU if patient respiratory parameters have not improved after 4 naloxone doses. naloxone (NARCAN) injection 0.4 mg 0.4 mg, Intravenous, EVERY 2 MIN PRN, opioid reversal, Starting on [place]cee 05/20/23 at 1658, Administer intravenous route when available and notify provider when administered. For unintended sedation or respiratory depression if all of the below criteria are met: ~ respiratory rate LESS than or EQUAL to 8. ~ SaO2 less than 92% and or/end-tidal CO2 is greater than 50. ~ the patient is receiving an opioid, has unintended sedation assessed as RASS (-4) or (-5) and patient is currently not on mechanical ventilation. RASS scale (-4) is deep sedation with no response to voice but movement or eye opening to physical stimulation. RASS scale (-5) is unarousable. Patient Monitoring Once the patient has demonstrated a response to the naloxone, continue to monitor respiratory rate, depth, oxygen saturation and end-tidal CO2 (if available) every 15 minutes x 2, then every 30 minutes x 2, then every 1 hour x 1 after each naloxone dose. Consider transfer to ICU if patient respiratory parameters have not improved after 4 naloxone doses. naloxone (NARCAN) injection 0.4 mg 0.4 mg, Intramuscular, EVERY 2 MIN PRN, opioid reversal, Starting on Jaycee 05/20/23 at 1658, Administer intramuscular if an intravenous route is not available and notify provider when administered. For unintended sedation or respiratory depression if all of the below criteria are met: ~ respiratory rate LESS than or EQUAL to 8. ~ SaO2 less than 92% and or/end-tidal CO2 is greater than 50. ~ the patient is receiving an opioid, has unintended sedation assessed as RASS (-4) or (-5) and patient is currently not on mechanical ventilation. RASS scale (-4) is deep sedation with no response to voice but movement or eye opening to physical stimulation. RASS scale (-5) is unarousable. Patient Monitoring Once the patient has demonstrated a response to the naloxone, continue to monitor respiratory rate, depth, oxygen saturation and end-tidal CO2 (if available) every 15 minutes x 2, then every 30 minutes x 2, then every 1 hour x 1 after each naloxone dose. Consider transfer to ICU if patient respiratory parameters have not improved after 4 naloxone doses. ondansetron (ZOFRAN ODT) ODT tab 4 mg 4 mg, Oral, EVERY 6 HOURS PRN, nausea, vomiting, Starting on [place]ce[place] 05/20/23 at 1449, This is Step 1 of nausea and vomiting management. If nausea not resolved in 15 minutes, go to Step 2 prochlorperazine (COMPAZINE). Do not push through foil backing. Peel back foil and gently remove. Place on tongue immediately. Administration with liquid unnecessary With dry hands, peel back foil backing and gently remove tablet. Do not push oral disintegrating tablet through foil backing. Administer immediately on tongue and oral disintegrating tablet dissolves in seconds, then swallow with saliva. Liquid not required. ondansetron (ZOFRAN) injection 4 mg 4 mg, Intravenous, EVERY 6 HOURS PRN, nausea, vomiting, Administer over 2-5 Minutes, Starting on Jaycee 05/20/23 at 1449, This is Step 1 of nausea and vomiting management. If nausea not resolved in 15 minutes, go to Step 2 prochlorperazine (COMPAZINE). Irritant. $Given 05/20/2023 5:54 PM LEAD SIMULATION MODELING ENGINEER 4 mg oxyCODONE (ROXICODONE) tablet 10 mg 10 mg, Oral, EVERY 4 HOURS PRN, severe pain, Starting on [place]ce[place] 05/20/23 at 1449, Hold oral PRN dose for analgesic side effects. Notify provider to assess for uncontrolled pain or analgesic side effects. Hold while on IV TAP DANCER or with regular IV opioid dosing. oxyCODONE (ROXICODONE) tablet 5 mg 5 mg, Oral, ONCE PRN, moderate pain, Starting on Jaycee 05/20/23 at 1450, For 1 dose, Max: 5 mg for opioid-na??ve patient., Phase ll $Given 05/20/2023 4:03 PM LEAD SIM[employer]ATION MODELING ENGINEER 5 mg oxyCODONE (ROXICODONE) tablet 5 mg 5 mg, Oral, EVERY 4 HOURS PRN, moderate pain, Starting on Jaycee 05/20/23 at 1449, Hold oral PRN dose for analgesic side effects. Notify provider to assess for uncontrolled pain or analgesic side effects. Hold while on IV TAP DANCER or with regular IV opioid dosing. $Given 05/21/2023 12:02 PM LEAD SIMULATION MODELING ENGINEER 5 mg $Given 05/21/2023 7:45 AM LEAD SIMULATION MODELING ENGINEER 5 mg $Given 05/21/2023 1:51 AM LEAD SIMULATION MODELING ENGINEER 5 mg polyethylene glycol (MIRALAX) Packet 17 g 17 g, Oral, DAILY, First dose on Wed05/21/23 at 0800, To prevent constipation. Mixed prescribed dose in 8 ounces of water, juice or soda. Administer daily starting at 0900 on POD 1. Hold for loose stools. 1 Packet = 17 grams. Mix each gram with at least 1/2 ounce (15 mL) of water - 8 ounces for 17 g dose, 4 ounces for 8.5 g dose, 2 ounces for 4 g dose. Follow with the same volume of water. Hold for loose stools unless being administered as part of a bowel prep regimen or bowel clean out. $Given 05/21/2023 7:44 AM LEAD SIMULATION MODELING ENGINEER 17 g prochlorperazine (COMPAZINE) injection 10 mg 10 mg, Intravenous, EVERY 6 HOURS PRN, nausea, vomiting, Administer over 1-2 Minutes, Starting on Jaycee 05/20/23 at 1449, This is Step 2 of nausea and vomiting management. If nausea not resolved in 15-30 minutes, Notify provider. prochlorperazine (COMPAZINE) tablet 10 mg 10 mg, Oral, EVERY 6 HOURS PRN, nausea, vomiting, Starting on [place]cee 05/20/23 at 1449, This is Step 2 of nausea and vomiting management. If nausea not resolved in 15-30 minutes, Notify provider. senna-docusate (SENOKOT-S/PERICOLACE) 8.6-50 MG per tablet 1 tablet 1 tablet, Oral, 2 TIMES DAILY, First dose on Jaycee 05/20/23 at 2000, To prevent constipation. Hold for loose stools Hold for loose stools. $Given 05/21/2023 7:45 AM LEAD SIMULATION MODELING ENGINEER 1 tablet $Given 05/20/2023 7:47 PM LEAD SIMULATION MODELING ENGINEER 1 tablet sodium chloride (PF) 0.9% PF flush 3 mL 3 mL, Intracatheter, EVERY 8 HOURS, First dose on Jaycee 05/20/23 at 1500, to lock peripheral IV dormant line sodium chloride (PF) 0.9% PF flush 3 mL 3 mL, Intracatheter, EVERY 1 MIN PRN, line flush, other, to ensure patency or to lock dormant line, Starting on Jaycee 05/20/23 at 1449 tranexamic acid (LYSTEDA) tablet 1,950 mg 1,950 mg, Oral, ONCE, On Jaycee 05/20/23 at 1130, For 1 dose, Administer with a sip of water in PRE OP area 90 minutes PRIOR to leaving Pre-op area., Pre-procedure $Given 05/20/2023 11:20 AM LEAD SIMULATION MODELING ENGINEER 1,95 0 mg documented in this encounter Active and Recently Administered Medications Times are shown in LEAD [employer]ATION MODELING ENGINEER. Scheduled Medication Order 05/19/2023 05/20/202305/21/2023 acetaminophen (TYLENOL) tablet 975 mg 975 mg, Oral, EVERY 8 HOURS, First dose on Jaycee 05/20/23 at 1500, For 3 days, Administer for multimodal surgical pain management. Maximum acetaminophen dose from all sources = 75 mg/kg/day not to exceed 4 grams/day. 1725 ($Given - Provider: Nolvia Alicea RN) 0132 ($Given - Provider: Poornima Butt, MARTHA)0752 ($Given - Provider: Delmi Perrin, MARTHA)0900 (Canceled Entry - Provider: Delmi Perrin RN) aspirin (ASA) EC tablet 325 mg 325 mg, Oral, DAILY, First dose on Jaycee 05/20/23 at 1500, Indications: VTE Prophylaxis, DO NOT CRUSH. DO NOT CRUSH. 1725 ($Given - Provider: Nolvia Alicea RN) 0744 ($Given - Provider: Delmi Perrin RN) ceFAZolin (ANCEF) 2 g in 100 mL D5W intermittent infusion (COMPLETED) Routine, 2 g, Intravenous, EVERY 8 HOURS, First dose on Jaycee 05/20/23 at 2100, For 2 doses, First post-op dose due 8 hours after intra-op dose, see eMAR. , Indications: Perioperative Pharmacoprophylaxis 2205 ($New Bag - Provider: Nolvia Alicea RN) 0518 ($New Bag - Provider: Poornima Butt RN) ceFAZolin Sodium (ANCEF) injection 2 g (COMPLETED) Routine, 2 g, Intravenous, PRE-OP/PRE-PROCEDURE, Starting on Jaycee 05/20/23 at 1137, For 1 dose, Give first dose within 1 hour PRIOR to incision. If patient weight is greater than or equal to 120 kg increase dose to 3 g., Indications: Perioperative Pharmacoprophylaxis, Pre-procedure 1304 ($Given - Provider: Sepideh Huertas APRN PRODUCTION PLANNING MANAGER) famotidine (PEPCID) injection 20 mg(Linked Group 1) 20 mg, Intravenous, Administer over 2 Minutes, 2 TIMES DAILY, First dose on Jaycee 23 at 2000, If unable to take oral For ordered IV doses 1-20 mg, give IV Push diluted with 5-10 mL NS over a minimum of 2 minutes. 1947 (See Alternative - Provider: Nolvia Alicea RN) 0744 (See Alternative - Provider: Delmi Perrin RN) famotidine (PEPCID) tablet 20 mg(Linked Group 1) 20 mg, Oral, 2 TIMES DAILY, First dose on Wed05/20/23 at 1999 1947 ($Given - Provider: Nolvia Alicea RN) 0744 ($Given - Provider: Delmi Perrin RN) polyethylene glycol (MIRALAX) Packet 17 g 17 g, Oral, DAILY, First dose on Wed05/21/23 at 0800, To prevent constipation. Mixed prescribed dose in 8 ounces of water, juice or soda. Administer daily starting at 0900 on POD 1. Hold for loose stools. 1 Packet = 17 grams. Mix each gram with at least 1/2 ounce (15 mL) of water - 8 ounces for 17 g dose, 4 ounces for 8.5 g dose, 2 ounces for 4 g dose. Follow with the same volume of water. Hold for loose stools unless being administered as part of a bowel prep regimen or bowel clean out. 0744 ($Given - Provider: Delmi Perrin RN) ROPivacaine (NAROPIN) 5 MG/ML 150 mg, ketorolac (TORADOL) 30 mg, EPINEPHrine (ADRENALIN) 0.6 mg in sodium chloride 0.9 % 50 mL (ORTHO THOMAS LOW DOSE) (COMPLETED) INTRA-ARTICULAR, BREWERY CELLAR WORKER TO O.R., Starting on Wed05/20/23 at 1300, For 1 dose, NOT FOR IV INJECTION. Used by provider at the end of surgery., Pre-procedure 1424 ($Given - Provider: Favio Gasca MD) senna-docusate (SENOKOT-S/PERICOLACE) 8.6-50 MG per tablet 1 tablet 1 tablet, Oral, 2 TIMES DAILY, First dose on Wed05/20/23 at 2000, To prevent constipation. Hold for loose stools Hold for loose stools. 1946 ($Given - Provider: Nolvia Alicea RN) 0745 ($Given - Provider: Delmi Perrin RN) sodium chloride (PF) 0.9% PF flush 3 mL 3 mL, Intracatheter, EVERY 8 HOURS, First dose on Jaycee 05/20/23 at 1500, to lock peripheral IV dormant line 1717 (Not Given - Provider: Nolvia Alicea RN - Reason: IV Infusing)2300 (Canceled Entry - Provider: Nolvia Alicea RN - Comment: iv infusing.) 0612 (Not Given - Provider: Poornima Butt RN - Reason: Other)1500 (Canceled Entry - Provider: Orders Generic Provider - Comment: Automatically canceled at discontinue of medication order) tranexamic acid (LYSTEDA) tablet 1,950 mg (COMPLETED) 1,950 mg, Oral, ONCE, On Jaycee 05/20/23 at 1130, For 1 dose, Administer with a sip of water in PRE OP area 90 minutes PRIOR to leaving Pre-op area., Pre-procedure 1120 ($Given - Provider: Deepthi Dominguez RN) Continuous Medication Order 05/19/2023 05/20/2023 05/21/2023 lactated ringers infusion (CANCELED) at 100 mL/hr, Intravenous, CONTINUOUS, Continue until IV catheter is weaned, PACU, Starting on Jaycee 05/20/23 at 1500, Until Jaycee 05/20/23 at 1653 1454 ($New Bag - Provider: Oralia Nye, MARTHA) lactated ringers infusion (CANCELED) at 10 mL/hr, Intravenous, CONTINUOUS, IF patient NOT on dialysis., Pre-procedure, Starting on Jaycee 05/20/23 at 1200, Until Jaycee 05/20/23 at 1439 1226 ($New Bag - Provider: Brandi Hager RN) lactated ringers infusion at 50 mL/hr, Intravenous, CONTINUOUS, IF overnight stay, continue IV fluids until 0400 POD #1, then may saline lock if tolerating oral fluids. IF Day of Surgery Discharge, continue IV Fluids until one hour before discharge., Starting on Jaycee 05/20/23 at 1500, Until Wed05/21/23 at 1546 1716 (Rate/Dose Verify - Provider: Nolvia Alicea RN) 0601 (Stopped - Provider: Poornima Butt RN) PRN Medication Order 05/19/2023 05/20/2023 05/21/2023 acetaminophen (TYLENOL) tablet 650 mg 650 mg, Oral, EVERY 4 HOURS PRN, other, For optimal non-opioid multimodal pain management to improve pain control., Starting on [place] 05/23/23 at 0000, May give first dose 4 hours after last scheduled dose of acetaminophen (TYLENOL). Maximum acetaminophen dose from all sources = 75 mg/kg/day not to exceed 4 grams/day. benzocaine-menthol (CHLORASEPTIC) 6-10 MG lozenge 1 lozenge 1 lozenge, Buccal, EVERY 1 HOUR PRN, sore throat, sore throat without fever, Starting on Jaycee 05/20/23 at 1449 bisacodyl (DULCOLAX) suppository 10 mg 10 mg, Rectal, DAILY PRN, constipation, Use if Magnesium hydroxide (MILK of MAGNESIA) not effective after 24 hours. May discontinue if patient having bowel movement., Starting on Jaycee 05/20/23 at 1449, Hold for loose stools. fentaNYL (PF) (SUBLIMAZE) injection 50 mcg (CANCELED) 50 mcg, Intravenous, EVERY 5 MIN PRN, severe pain, Give fentaNYL (SUBLIMAZE) first if HYDROmorphone (DILAUDID) also ordered., Starting on Jaycee 05/20/23 at 1450, Administer fentaNYL (SUBLIMAZE) for acute pain control. Move to HYDROmorphone (DILAUDID): - IF patient has received up to 200 mcg of fentaNYL (SUBLIMAZE), OR - IF patient has received 2 doses of fentaNYL (SUBLIMAZE) AND continues to have severe pain (pain score greater than or equal to seven (7) or is unable to participate in post op recovery due to pain. Wait 5 minutes AFTER last fentaNYL (SUBLIMAZE) dose before administering HYDROmorphone (DILADUDID). Postop Anesthesia Phase I only. Notify Provider to assess for uncontrolled pain or analgesic side effects. DO NOT revert back to fentanyl (SUBLIMAZE) after administering HYDROmorphone (DILAUDID)., PACU 1450 ($Given - Provider: Oralia Nye RN)1459 ($Given - Provider: Oralia Nye RN) HYDROmorphone (DILAUDID) injection 0.2 mg(Linked Group 2) 0.2 mg, Intravenous, EVERY 2 HOURS PRN, moderate pain, Starting on Jaycee 12//23 at 1449, IF patient unable to take oral pain medication or pain not controlled with oral analgesics. Hold IV PRN opioid dose for analgesic side effects. Notify provider to assess for uncontrolled pain or analgesic side effects. 1515 (See Alternative - Provider: Brandi Hager RN)1803 ($Given - Provider: Nolvia Alicea RN) HYDROmorphone (DILAUDID) injection 0.4 mg (CANCELED) 0.4 mg, Intravenous, EVERY 5 MIN PRN, severe pain, Starting on Jaycee 05/20/23 at 1450, Use FentaNYL (SUBLIMAZE) first if ordered. Maximum total cumulative dose NOT to exceed 2 mg. DO NOT revert back to fentanyl (SUBLIMAZE) after administering HYDROmorphone (DILAUDID). Notify Provider to assess for uncontrolled pain or analgesic side effects., PACU 1508 ($Given - Provider: Oralia Nye RN)1515 ($Given - Provider: Brandi Hager RN)1531 ($Given - Provider: Brandi Hager RN)1541 ($Given - Provider: Brandi Hager RN) HYDROmorphone (DILAUDID) injection 0.4 mg(Linked Group 2) 0.4 mg, Intravenous, EVERY 2 HOURS PRN, severe pain, Starting on Jaycee 12//23 at 1449, IF patient unable to take oral pain medication or pain not controlled with oral analgesics. Hold IV PRN opioid dose for analgesic side effects. Notify provider to assess for uncontrolled pain or analgesic side effects. 1515 (Not Given - Provider: Brandi Hager RN - Reason: Other - Comment: charted under the floor under instead of PACU--moved to PACU order)1803 (See Alternative - Provider: Nolvia Alicea RN) hydrOXYzine HCl (ATARAX) tablet 25 mg 25 mg, Oral, EVERY 6 HOURS PRN, other, adjuvant pain, Starting on Jaycee 12/23 at 1449, Allergy to Cetirizine reported (tongue swelling). CROSS SENSITIVITY BETWEEN CETIRIZINE AND HYDROXYZINE MAY OCCUR. MONITOR pt CLOSELY 1803 ($Given - Provider: Nolvia Alicea, RN) 0745 ($Given - Provider: Delmi Perrin RN) lidocaine (LMX4) cream Topical, EVERY 1 HOUR PRN, pain, with VAD insertion, Starting on Jaycee 05/20/23 at 1449, Apply at least 30 minutes prior to VAD insertion in divided doses as needed for size of site for insertion. MAX Dose: 2.5 g (?? of 5 g tube) Do NOT give if patient has a history of allergy to any local anesthetic or any noe product. Do NOT use both lidocaine intradermal/subcutaneous injection and the lidocaine cream on the same site. lidocaine 1 % 0.1-1 mL 0.1-1 mL, Other, EVERY 1 HOUR PRN, mild pain with VAD insertion, Starting on Jaycee 05/20/23 at 1449, MAX dose 1 mL subcutaneous OR intradermal along the side of the vein in divided doses as needed for VAD insertion. Do NOT give if patient has a history of allergy to any local anesthetic or any noe product. Do NOT use both lidocaine intradermal/subcutaneous injection and the lidocaine cream on the same site. LORazepam (ATIVAN) tablet 1 mg (COMPLETED) 1 mg, Oral, ONCE PRN, anxiety, Starting on Jaycee 05/20/23 at 1514, For 1 dose, PACU 1522 ($Given - Provider: Brandi Hager RN) magnesium hydroxide (MILK OF MAGNESIA) suspension 30 mL 30 mL, Oral, DAILY PRN, constipation, Use if preventive measures (senna-docusate, docusate, and polyethylene glycol) are not effective., Starting on [place]cee 05/20/23 at 1449, Shake well. Hold for loose stools. naloxone (NARCAN) injection 0.2 mg(Linked Group 3) 0.2 mg, Intravenous, EVERY 2 MIN PRN, opioid reversal, Starting on [place]cee 05/20/23 at 1658, Administer intravenous route when available and notify provider when administered. For unintended sedation or respiratory depression if all of the below criteria are met: ~ respiratory rate LESS than or EQUAL to 8. ~SaO2 less than 92% and or/end-tidal CO2 is greater than 50. ~ the patient is receiving an opioid, has unintended sedations assessed as RASS (-3), and is currently not on mechanical ventilation. RASS scale moderate (-3) is movement or eye opening to voice but no eye contact. Patient Monitoring Once the patient has demonstrated a response to the naloxone, continue to monitor respiratory rate, depth, oxygen saturation and end-tidal CO2 (if available) every 15 minutes x 2, then every 30 minutes x 2, then every 1 hour x 1 after each naloxone dose. Consider transfer to ICU if patient respiratory parameters have not improved after 4 naloxone doses. naloxone (NARCAN) injection 0.2 mg(Linked Group 3) 0.2 mg, Intramuscular, EVERY 2 MIN PRN, opioid reversal, Starting on [place]cee 05/20/23 at 1658, Administer intramuscular if an intravenous route is not available and notify provider when administered. For unintended sedation or respiratory depression if all of the below criteria are met: ~ respiratory rate LESS than or EQUAL to 8. ~SaO2 less than 92% and or/end-tidal CO2 is greater than 50. ~ the patient is receiving an opioid, has unintended sedations assessed as RASS (-3), and is currently not on mechanical ventilation. RASS scale moderate (-3) is movement or eye opening to voice but no eye contact. Patient Monitoring Once the patient has demonstrated a response to the naloxone, continue to monitor respiratory rate, depth, oxygen saturation and end-tidal CO2 (if available) every 15 minutes x 2, then every 30 minutes x 2, then every 1 hour x 1 after each naloxone dose. Consider transfer to ICU if patient respiratory parameters have not improved after 4 naloxone doses. naloxone (NARCAN) injection 0.4 mg(Linked Group 3) 0.4 mg, Intravenous, EVERY 2 MIN PRN, opioid reversal, Starting on [place]ce[place] 05/20/23 at 1658, Administer intravenous route when available and notify provider when administered. For unintended sedation or respiratory depression if all of the below criteria are met: ~ respiratory rate LESS than or EQUAL to 8. ~ SaO2 less than 92% and or/end-tidal CO2 is greater than 50. ~ the patient is receiving an opioid, has unintended sedation assessed as RASS (-4) or (-5) and patient is currently not on mechanical ventilation. RASS scale (-4) is deep sedation with no response to voice but movement or eye opening to physical stimulation. RASS scale (-5) is unarousable. Patient Monitoring Once the patient has demonstrated a response to the naloxone, continue to monitor respiratory rate, depth, oxygen saturation and end-tidal CO2 (if available) every 15 minutes x 2, then every 30 minutes x 2, then every 1 hour x 1 after each naloxone dose. Consider transfer to ICU if patient respiratory parameters have not improved after 4 naloxone doses. naloxone (NARCAN) injection 0.4 mg(Linked Group 3) 0.4 mg, Intramuscular, EVERY 2 MIN PRN, opioid reversal, Starting on [place]cee 05/20/23 at 1658, Administer intramuscular if an intravenous route is not available and notify provider when administered. For unintended sedation or respiratory depression if all of the below criteria are met: ~ respiratory rate LESS than or EQUAL to 8. ~ SaO2 less than 92% and or/end-tidal CO2 is greater than 50. ~ the patient is receiving an opioid, has unintended sedation assessed as RASS (-4) or (-5) and patient is currently not on mechanical ventilation. RASS scale (-4) is deep sedation with no response to voice but movement or eye opening to physical stimulation. RASS scale (-5) is unarousable. Patient Monitoring Once the patient has demonstrated a response to the naloxone, continue to monitor respiratory rate, depth, oxygen saturation and end-tidal CO2 (if available) every 15 minutes x 2, then every 30 minutes x 2, then every 1 hour x 1 after each naloxone dose. Consider transfer to ICU if patient respiratory parameters have not improved after 4 naloxone doses. ondansetron (ZOFRAN ODT) ODT tab 4 mg(Linked Group 4) 4 mg, Oral, EVERY 6 HOURS PRN, nausea, vomiting, Starting on [place]cee 05/20/23 at 1449, This is Step 1 of nausea and vomiting management. If nausea not resolved in 15 minutes, go to Step 2 prochlorperazine (COMPAZINE). Do not push through foil backing. Peel back foil and gently remove. Place on tongue immediately. Administration with liquid unnecessary With dry hands, peel back foil backing and gently remove tablet. Do not push oral disintegrating tablet through foil backing. Administer immediately on tongue and oral disintegrating tablet dissolves in seconds, then swallow with saliva. Liquid not required. 1754 (See Alternative - Provider: Nolvia Alicea RN) ondansetron (ZOFRAN) injection 4 mg(Linked Group 4) 4 mg, Intravenous, EVERY 6 HOURS PRN, nausea, vomiting, Administer over 2-5 Minutes, Starting on [place]cee 05/20/23 at 1449, This is Step 1 of nausea and vomiting management. If nausea not resolved in 15 minutes, go to Step 2 prochlorperazine (COMPAZINE). Irritant. 1754 ($Given - Provider: Nolvia Alicea, RN) oxyCODONE (ROXICODONE) tablet 10 mg(Linked Group 5) 10 mg, Oral, EVERY 4 HOURS PRN, severe pain, Starting on [place] 05/20/23 at 1449, Hold oral PRN dose for analgesic side effects. Notify provider to assess for uncontrolled pain or analgesic side effects. Hold while on IV TAP DANCER or with regular IV opioid dosing. 1946 (See Alternative - Provider: Nolvia Alicea RN) 150 (See Alternative - Provider: Poornima Butt, MARTHA)0745 (See Alternative - Provider: Delmi Perrin, MARTHA)1202 (See Alternative - Provider: Delmi Perrin RN) oxyCODONE (ROXICODONE) tablet 5 mg (COMPLETED) 5 mg, Oral, ONCE PRN, moderate pain, Starting on [place]ce[place] 05/20/23 at 1450, For 1 dose, Max: 5 mg for opioid-na??ve patient., Phase ll 1603 ($Given - Provider: Brandi Hager RN) oxyCODONE (ROXICODONE) tablet 5 mg(Linked Group 5) 5 mg, Oral, EVERY 4 HOURS PRN, moderate pain, Starting on [place]ce[place] 05/20/23 at 1449, Hold oral PRN dose for analgesic side effects. Notify provider to assess for uncontrolled pain or analgesic side effects. Hold while on IV TAP DANCER or with regular IV opioid dosing. 1946 ($Given - Provider: Nolvia Alicea RN) 150 ($Given - Provider: Poornima Butt, MARTHA)0745 ($Given - Provider: Delmi Perrin RN)1202 ($Given - Provider: Delmi Perrin, MARTHA) povidone-iodine 10% (17 mL) (BETADINE) in 500 mL saline irrigation (CANCELED) PRN, Starting on Jaycee 12/21/23 at 1423, Intra-procedure 1423 ($Given - Provider: Favio Gasca MD) prochlorperazine (COMPAZINE) injection 10 mg(Linked Group 6) 10 mg, Intravenous, EVERY 6 HOURS PRN, nausea, vomiting, Administer over 1-2 Minutes, Starting on [place]ce[place] 05/20/23 at 1449, This is Step 2 of nausea and vomiting management. If nausea not resolved in 15-30 minutes, Notify provider. prochlorperazine (COMPAZINE) tablet 10 mg(Linked Group 6) 10 mg, Oral, EVERY 6 HOURS PRN, nausea, vomiting, Starting on Jaycee 05/20/23 at 1449, This is Step 2 of nausea and vomiting management. If nausea not resolved in 15-30 minutes, Notify provider. sodium chloride (PF) 0.9% PF flush 3 mL 3 mL, Intracatheter, EVERY 1 MIN PRN, line flush, other, to ensure patency or to lock dormant line, Starting on Jaycee 05/20/23 at 1449 sodium chloride 0.9% irrigation (bag) (CANCELED) PRN, Starting on Jaycee 05/20/23 at 1425, Intra-procedure 1425 ($Given - Provider: Favio Gasca MD) vancomycin (VANCOCIN) topical powder (CANCELED) PRN, Starting on Jaycee 05/20/23 at 1425, Intra-procedure 1425 ($Given - Provider: Favio Gasca MD) Linked Groups Order Group 1: famotidine (PEPCID) tablet 20 mgJump to med 20 mg, Oral, 2 TIMES DAILY, First dose on Jaycee 05/20/23 at 2000 Or famotidine (PEPCID) injection 20 mgJump to med 20 mg, Intravenous, Administer over 2 Minutes, 2 TIMES DAILY, First dose on Jaycee 05/20/23 at 2000, If unable to take oral For ordered IV doses 1-20 mg, give IV Push diluted with 5-10 mL NS over a minimum of 2 minutes. Group 2: HYDROmorphone (DILAUDID) injection 0.2 mgJump to med 0.2 mg, Intravenous, EVERY 2 HOURS PRN, moderate pain, Starting on Jaycee 05/20/23 at 1449, IF patient unable to take oral pain medication or pain not controlled with oral analgesics. Hold IV PRN opioid dose for analgesic side effects. Notify provider to assess for uncontrolled pain or analgesic side effects. Or HYDROmorphone (DILAUDID) injection 0.4 mgJump to med 0.4 mg, Intravenous, EVERY 2 HOURS PRN, severe pain, Starting on Jaycee 05/20/23 at 1449, IF patient unable to take oral pain medication or pain not controlled with oral analgesics. Hold IV PRN opioid dose for analgesic side effects. Notify provider to assess for uncontrolled pain or analgesic side effects. Group 3: naloxone (NARCAN) injection 0.2 mgJump to med 0.2 mg, Intravenous, EVERY 2 MIN PRN, opioid reversal, Starting on Jaycee 05/20/23 at 1658, Administer intravenous route when available and notify provider when administered. For unintended sedation or respiratory depression if all of the below criteria are met: ~ respiratory rate LESS than or EQUAL to 8. ~SaO2 less than 92% and or/end-tidal CO2 is greater than 50. ~ the patient is receiving an opioid, has unintended sedations assessed as RASS (-3), and is currently not on mechanical ventilation. RASS scale moderate (-3) is movement or eye opening to voice but no eye contact. Patient Monitoring Once the patient has demonstrated a response to the naloxone, continue to monitor respiratory rate, depth, oxygen saturation and end-tidal CO2 (if available) every 15 minutes x 2, then every 30 minutes x 2, then every 1 hour x 1 after each naloxone dose. Consider transfer to ICU if patient respiratory parameters have not improved after 4 naloxone doses. Or naloxone (NARCAN) injection 0.4 mgJump to med 0.4 mg, Intravenous, EVERY 2 MIN PRN, opioid reversal, Starting on Jaycee 05/20/23 at 1658, Administer intravenous route when available and notify provider when administered. For unintended sedation or respiratory depression if all of the below criteria are met: ~ respiratory rate LESS than or EQUAL to 8. ~ SaO2 less than 92% and or/end-tidal CO2 is greater than 50. ~ the patient is receiving an opioid, has unintended sedation assessed as RASS (-4) or (-5) and patient is currently not on mechanical ventilation. RASS scale (-4) is deep sedation with no response to voice but movement or eye opening to physical stimulation. RASS scale (-5) is unarousable. Patient Monitoring Once the patient has demonstrated a response to the naloxone, continue to monitor respiratory rate, depth, oxygen saturation and end-tidal CO2 (if available) every 15 minutes x 2, then every 30 minutes x 2, then every 1 hour x 1 after each naloxone dose. Consider transfer to ICU if patient respiratory parameters have not improved after 4 naloxone doses. Or naloxone (NARCAN) injection 0.2 mgJump to med 0.2 mg, Intramuscular, EVERY 2 MIN PRN, opioid reversal, Starting on Jaycee 05/20/23 at 1658, Administer intramuscular if an intravenous route is not available and notify provider when administered. For unintended sedation or respiratory depression if all of the below criteria are met: ~ respiratory rate LESS than or EQUAL to 8. ~SaO2 less than 92% and or/end-tidal CO2 is greater than 50. ~ the patient is receiving an opioid, has unintended sedations assessed as RASS (-3), and is currently not on mechanical ventilation. RASS scale moderate (-3) is movement or eye opening to voice but no eye contact. Patient Monitoring Once the patient has demonstrated a response to the naloxone, continue to monitor respiratory rate, depth, oxygen saturation and end-tidal CO2 (if available) every 15 minutes x 2, then every 30 minutes x 2, then every 1 hour x 1 after each naloxone dose. Consider transfer to ICU if patient respiratory parameters have not improved after 4 naloxone doses. Or naloxone (NARCAN) injection 0.4 mgJump to med 0.4 mg, Intramuscular, EVERY 2 MIN PRN, opioid reversal, Starting on Jaycee 05/20/23 at 1658, Administer intramuscular if an intravenous route is not available and notify provider when administered. For unintended sedation or respiratory depression if all of the below criteria are met: ~ respiratory rate LESS than or EQUAL to 8. ~ SaO2 less than 92% and or/end-tidal CO2 is greater than 50. ~ the patient is receiving an opioid, has unintended sedation assessed as RASS (-4) or (-5) and patient is currently not on mechanical ventilation. RASS scale (-4) is deep sedation with no response to voice but movement or eye opening to physical stimulation. RASS scale (-5) is unarousable. Patient Monitoring Once the patient has demonstrated a response to the naloxone, continue to monitor respiratory rate, depth, oxygen saturation and end-tidal CO2 (if available) every 15 minutes x 2, then every 30 minutes x 2, then every 1 hour x 1 after each naloxone dose. Consider transfer to ICU if patient respiratory parameters have not improved after 4 naloxone doses. Group 4: ondansetron (ZOFRAN ODT) ODT tab 4 mgJump to med 4 mg, Oral, EVERY 6 HOURS PRN, nausea, vomiting, Starting on Jaycee 1223 at 1449, This is Step 1 of nausea and vomiting management. If nausea not resolved in 15 minutes, go to Step 2 prochlorperazine (COMPAZINE). Do not push through foil backing. Peel back foil and gently remove. Place on tongue immediately. Administration with liquid unnecessary With dry hands, peel back foil backing and gently remove tablet. Do not push oral disintegrating tablet through foil backing. Administer immediately on tongue and oral disintegrating tablet dissolves in seconds, then swallow with saliva. Liquid not required. Or ondansetron (ZOFRAN) injection 4 mgJump to med 4 mg, Intravenous, EVERY 6 HOURS PRN, nausea, vomiting, Administer over 2-5 Minutes, Starting on Jaycee 12/23 at 1449, This is Step 1 of nausea and vomiting management. If nausea not resolved in 15 minutes, go to Step 2 prochlorperazine (COMPAZINE). Irritant. Group 5: oxyCODONE (ROXICODONE) tablet 5 mgJump to med 5 mg, Oral, EVERY 4 HOURS PRN, moderate pain, Starting on Jaycee 1223 at 1449, Hold oral PRN dose for analgesic side effects. Notify provider to assess for uncontrolled pain or analgesic side effects. Hold while on IV TAP DANCER or with regular IV opioid dosing. Or oxyCODONE (ROXICODONE) tablet 10 mgJump to med 10 mg, Oral, EVERY 4 HOURS PRN, severe pain, Starting on Jaycee 12//23 at 1449, Hold oral PRN dose for analgesic side effects. Notify provider to assess for uncontrolled pain or analgesic side effects. Hold while on IV TAP DANCER or with regular IV opioid dosing. Group 6: prochlorperazine (COMPAZINE) injection 10 mgJump to med 10 mg, Intravenous, EVERY 6 HOURS PRN, nausea, vomiting, Administer over 1-2 Minutes, Starting on Jaycee 12//23 at 1449, This is Step 2 of nausea and vomiting management. If nausea not resolved in 15-30 minutes, Notify provider. Or prochlorperazine (COMPAZINE) tablet 10 mgJump to med 10 mg, Oral, EVERY 6 HOURS PRN, nausea, vomiting, Starting on Jaycee 05/20/23 at 1449, This is Step 2 of nausea and vomiting management. If nausea not resolved in 15- 30 minutes, Notify provider. 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
--- OUTSIDE RECORDS SUMMARY | 2023-06-16 12:05 | XMS_ITS | Encounter Summary ---
Author Name Unknown Organization [facility] Address [address] [place] [address] Care Team Providers Care Sewing Machine Attachment Tester Name Role Phone Rae Dorantes MD Primary Care Provider [phone] Reason for Visit * Auth/Cert (Routine) Specialty Diagnoses / Procedures Referred By Contac t Referred To Contact Surgery Diagnoses Osteoarthritis of left hip Osteoarthritis of left hip [M16.12] Procedures MI TOTAL HIP ARTHROPLASTY Left total hip arthroplasty Periop Services [address] [place] [address] Referral ID Status Reason Start Date Expiration Date Visits Re quested Visits Authorized [id number] 1 1 Encounter Details Date Type Department Care Team (Late st Contact Info) Description 05/20/2023 12:50 PM SIDEHAND - 05/20/2023 3:[address] [facility] PeriOp Services [address] [place] [address] Favio Gasca MD [facility] [address], [place] [address] [place] [address] Left total hip arthroplasty Surgery Details Date/Time Status Location OR Service Patient Class Case Class Case Type Trauma Case? 05/20/23 12:50 PM Posted [facility] OR OR 04 Orthopedics Surgery Admit Elective Panel 1 Procedure LRB Anes Op Region Wound Class Comments Left total hip arthroplasty Left Spinal Hip I- Clean Surgeon Surgeon Role Service Panel Mimi Richardson PA-C Assisting Icicle Machine Operator Authorizat ilia 1 Favio Gasca MD Primary Orthopedics 1 Special Needs MB -No (BMI) documented in this encounter Social History Tobacco [...] Sex Assigned at Female 05/01/2023 11:03 AM SIDEHAND Gender Identity Female 05/01/2023 11:03 AM SIDEHAND Sexual Orientation Not on file documented as of this encounter Last Filed Vital Signs Vital Sign Reading Time Taken Comments Blood Pressure 110/62 05/20/2023 3:00 PM SIDEHAND Pulse 87 05/20/2023 3:05 PM SIDEHAND Temperature 36.5 ??C (97.7 ??F) 05/20/2023 2:40 PM CS T Respiratory Rate 15 05/20/2023 3:05 PM SIDEHAND Oxygen Saturation 99% 05/20/2023 3:05 PM SIDEHAND Inhaled Oxygen Concentration - - Weight 111.3 kg (245 lb 4.8 oz) 023 11:14 AM SIDEHAND Height 170.2 cm (5' 7) 05/04/2023 11:0 0 AM SIDEHAND Body Mass Index 38.42 05/04/2023 11:00 AM SIDEHAND documented in this encounter Medications at Time [...] by mouth daily 42 tablet 0 05/20/2023 bmhhhlu-vyetori-brpscc elizabeth 4-10-30 % CREA Apply topically daily [...] for D/C Home today Favio Gasca MD [facility] [place] [phone] HAND * Karma Dumont, PT - 05/21/2023 11:37 AM CST Physical Therapy Discharge Summary Reason for therapy discharge: All goals and outcomes met, no further needs identified. Progress towards therapy goal(s). See goals on Care Plan in [facility] electronic health record for goal details. Goals met Therapy recommendation(s): Continue home exercise program. HAND * Karma Dumont, PT - 05/21/2023 11:36 AM CST 05/21/23 0905 Appointment Info Signing Clinician's Name / Credentials [...] and feeling ok) Integumentary/Edema Integumentary/Edema Comments see meter reading clerk Posture Posture Forward head position Range of Motion (ROM) Range of Motion ROM deficits secondary to surgical procedure Strength (Manual Muscle Testing) Strength (Manual Muscle Testing) strength is WFL Bed Mobility Bed Mobility no deficits identified Comment, (Bed Mobility) able to transition for supine > sit with IND and within hip precautions Transfers Transfers sit-stand transfer Sit-Stand Transfer Sit-Stand Newton (Transfers) contact guard Assistive Device (Sit-Stand Transfers) walker, front-wheeled Comment, (Sit-Stand Transfer) cues for hand placement Gait/Stairs (Locomotion) Newton Level (Gait) contact guard Assistive Device (Gait) [...] Evaluation Time PT Eval, Low Complexity Minutes (03482) 7 Therapy Certification Start of care date [...] (sum of timed and untimed services) 41 [facility] OUTPATIENT PHYSICAL THERAPY EVALUATION PLAN OF TREATMENT FOR OUTPATIENT REHABILITATION (COMPLETE FOR INITIAL CLAIMS ONLY) Patient's Last Name, First Name, M.I. Date of : 1965 JonyEssie Mera Provider's Name [facility] Onset Date: 05/20/23 Start of Care Date: [...] review and certification of the therapy plan). HAND Associated attestation - Mimi Richardson PA-C - 05/21/2023 12:38 PM SIDEHAND Physician Attestation I agree with the information in this note. Mimi Richardson PA-C * Israel Tomasa OsminDANIELLER - 05/21/2023 9:46 AM CST 05/21/23 0906 Appointment Info Signing Clinician's Name / Credentials [...] clamp on tub grab bar. sock aid. payable representative. toilet hygiene aid. lift chair.) Fall history [...] Transfers Transfers toilet transfer;shower transfer Shower Transfer Newton Level (Shower Transfer) moderate assist (50% patient effort) Toilet Transfer Newton Level (Toilet Transfer) supervision Activities of Daily Living BADL Assessment/Intervention lower body dressing;toileting Lower Body Dressing Assessment/Training Newton Level (Lower Body Dressing) moderate assist (50% patient effort) (pants and shoes) Toileting Newton Level (Toileting) supervision Clinical Impression Criteria for [...] Evaluation Time OT Eval, Low Complexity Minutes (89117) 8 OT Goals Therapy Frequency (OT) One [...] Management Self-Care/Home Mgmt/ADL, Compensatory, Meal Prep Minutes (31627) 25 Symptoms Noted During/After Treatment (Meal Preparation/Planning [...] with Jo and cues for technique using payable representative. During session pt completed sit to/from stand [...] goal(s). See goals on Care Plan in [facility] electronic health record for goal details. Goals met Therapy recommendation(s): Defer to ortho. At discharge anticipate pt will require Jo with bathing and LB dressing and assist with strenuous IADLs (cooking, cleaning, laundry, etc). Pt and spouse confirm this level of assistis possible at discharge. HAND documented in this encounter Consult Notes * [...] Tesfaye RN, BSN, CM Inpatient Care Coordination [facility] [phone] HAND documented in this encounter Miscellaneous Notes * [...] sent home with pt. Ready for discharge. HAND * Plan of Care - Poornima Butt [...] PRN Oxycodone Does patient have an identified assistant softball coach: Yes, spouse Has goal D/C date and time been discussed with patient: Yes, goal is to discharge home after today after therapy HAND * Plan of Care - Nolvia Alicea [...] with relief. Does patient have an identified assistant softball coach: Yes, spouse. Has goal D/C date and time been discussed with patient: Yes, plan for home in am. Goal Outcome Evaluation: Plan of Care Reviewed With: patient HAND * Op Note - Favio Gasca MD - 05/20/2023 2:50 PM CST Preoperative diagnosis: End stage osteoarthritis left hip Postoperative diagnosis: As above Procedure: Left total hip arthoplasty Surgeon: Favio Gasca MD Icicle Machine Operator: Mimi Richardson PA-C A physicians human resources assistant manager was available for the surgery and participated [...] will be Asprin 81 MG BID Implants [employer] Insignia size 6 stem, size 52 mm Tritainium II acetabular shell, a Trident X3 polyethylene liner for a 36mm head, and a Biolox 36, -2.5mm ceramic head. The acetabular shell was secured with 2-6.5 cancellous screws. HAND * Brief Op Note - Favio Gasca MD - 05/20/2023 2:49 PM CST [facility] Brief Operative Note Pre-operative diagnosis: Osteoarthritis [...] Implant Name Type Inv. Item Serial No. Elementary Math Tutor Lot No. LRB No. Used Action TRIDENT II TRITANIUM CLUSTERHOLE 52E - [id number] Total Joint Component/Insert TRIDENT II TRITANIUMCLUSTERHOLE 52E [employer] [id number] Left 1 Implanted INSERT ACTB 10DEG 36MM 0D E HIP X3 TRDNT STRL LF - [id number] Total Joint Component/Insert INSERT ACTB 10DEG 36MM 0D E HIP X3 TRDNT STRL LF [employer] [id number] Left 1 Implanted IMP SCR STRK LOW PROFILE HEX 6.5X30MM [id number] - [id number] Metallic Hardware/[place] IMP SCR STRK LOW PROFILE HEX 6.5X30MM [id number] [employer] [id number] Left 2 Implanted Insignia hip stem, standard offset, size 6, 35mm x 107mm Total Joint Component/Insert [employer] [id number] Left 1 Implanted IMP HEAD FEMORAL STRK BIOLOX DELTA CERAMIC V40 36MM - [id number] Total Joint Component/Insert IMP HEAD FEMORAL STRK BIOLOX DELTA CERAMIC V40 36MM [employer] [id number] Left 1 Implanted HAND * Pharmacy-Admission Medication History - Frida Colin [facility] - 05/18/2023 2:18 PM CST Admission Medication History Nurse Chaparrita Gabriel RN WedApr 23, 2023 1:51 PM Prior to Admission medications Medication Sig Last Dose Taking? albuterol (PROAIR HFA/PROVENTIL HFA/VENTOLIN HFA) 108 (90 Base) MCG/ACT inhaler Inhale 2 puffs intothe lungs every 6 hours as needed for shortness of breath, wheezing or cough More than a month Yes rjfxrfw-xxsbngn-oplzsh elizabeth 4-10-30 % CREA Apply topically daily [...] Take 1 tablet by mouth daily Yes HAND documented in this encounter Plan of Treatment Not on file documented as of this encounter Procedures Procedure Name Priority Date/Time Associated Diagnosis Comments HEMOGLOBIN Routine 05/21/2023 6:51 AM SIDEHAND GLUCOSE Routine 05/21/2023 6:51 AM SIDEHAND GLUCOSE BY METER Routine 05/21/2023 1:22 AM SIDEHAND GLUCOSE BY METER Routine 05/20/2023 9:37 PM SIDEHAND GLUCOSE BY METER Routine 05/20/2023 5:32 PM SIDEHAND XR PELVIS AND HIP PORTABLE LEFT 1 VIEW STAT 05/20/2023 3:29 PM SIDEHAND GLUCOSE BY METER Routine 05/20/2023 2:48 PM SIDEHAND ARTHROPLASTY, HIP, TOTAL 05/20/2023 12:51 PM SIDEHAND Osteoarthritis of left hip Special Needs MB -No (BMI) GLUCOSE BY METER Routine 05/20/2023 11:4 3 AM SIDEHAND TYPE AND SCREEN, ADULT STAT 05/20/2023 11:40 AM SIDEHAND ABO/RH TYPE AND SCREEN STAT 05/20/2023 11:40 AM SIDEHAND ABO AND RH STAT 05/20/2023 11:40 AM SIDEHAND CBC WITH PLATELETS STAT 05/20/2023 11 :40 AM SIDEHAND EKG CARDIAC - HIM SCAN 04/27/2023 12:00 AM SIDEHAND EKG CARDIAC - HIM SCAN 04/27/2023 12:00 AM SIDEHAND documented in this encounter Results * (ABNORMAL) Hemoglobin (05/21/2023 6:51 AM SIDEHAND) Hemoglobin 10.2(L) 11.7 - 15.7 g/dL 05/21/2023 6:59 AM SIDEHAND RH LABORATORY Blood STRUCTURE OF RIGHT UPPER LIMB / Unknown Venipuncture / Unknown 05/21/2023 6:51 AM SIDEHAND 05/21/2023 6:54 AM SIDEHAND Mimi Richardson PA-C LAB - BLOOD ORDERABL LOLY [facility] [address] Lab (1st floor, no room number) [place] [address], [facility] [phone] * (ABNORMAL) Glucose (05/21/2023 6:51 AM SIDEHAND) Glucose 103(H) 70 - 99 mg/dL 05/21/2023 7:14 AM SIDEHAND RH LABORATORY Patient Fasting > 8hrs? Yes 05/21/2023 7:14 AM SIDEHAND LABORATORY Blood STRUCTURE OF RIGHT UPPER LIMB / Unknown Venipuncture / Unknown 05/21/2023 6:51 AM SIDEHAND 05/21/2023 6:54 AM SIDEHAND Favio Gasca MD LAB - BLOOD KANWAL RAMIREZ [facility] [address] Lab (1st floor, no room number) [place] [address], [facility] [phone] * (ABNORMAL) Glucose by meter (05/21/2023 1:22 AM SIDEHAND) GLUCOSE BY METER POCT 129(H) 70 - 99 mg/dL 05/21/2023 1:28 AM SIDEHAND RH LABORATORY POC Blood, Capillary BLOOD SPECIMEN / Unknown 05/21/2023 1:22 AM SIDEHAND 05/21/2023 1:28 AM SIDEHAND Favio Gasca MD LAB - BEAKER POC T Performing Organization Address City/[facility]/ZIP Co de Phone Number LABORATORY [facility] [address] Lab (1st floor, no room number) [place] [address], [facility] [phone] * (ABNORMAL) Glucose by meter (05/20/2023 9:37 PM SIDEHAND) GLUCOSE BY METER POCT 143(H) 70 - 99 mg/dL 05/20/2023 9:44 PM SIDEHAND LABORATORY POC Blood, Capillary BLOOD SPECIMEN / Unknown 05/20/2023 9:37 PM SIDEHAND 05/20/2023 9:44 PM SIDEHAND Favio Gasca MD LAB - BEAKER POC T Performing Organization Address City/[facility]/ZIP Co de Phone Number LABORATORY [facility] [address] Lab (1st floor, no room number) [place] [address], [facility] [phone] * (ABNORMAL) Glucose by meter (05/20/2023 5:32 PM SIDEHAND) GLUCOSE BY METER POCT 150(H) 70 - 99 mg/dL 05/20/2023 5:39 PM SIDEHAND LABORATORY POC Blood, Capillary BLOOD SPECIMEN / Unknown 05/20/2023 5:32 PM SIDEHAND 05/20/2023 5:39 PM SIDEHAND Favio Gasca MD LAB - BEAKER POC T LABORATORY [facility] [address] Lab (1st floor, no room number) [place] [address], [place] [phone] * XR Pelvis w Hip Port Left 1 View (05/20/2023 3:29 PM SIDEHAND) Anatomical Region Laterality Modality Abdomen/Pelvis Left Digital Radiogra phy Impressions 05/20/2023 3:33 PM SIDEHAND Impression: 1. ??Completed left total hip arthroplasty. Normal joint alignment. No evidence of periprostatic fracture or other immediate complication. Postoperative air in the surrounding soft tissues. 2. ??Advanced degenerative arthritic changes in the right hip. RICHIE SCHRADER MD SYSTEM ID: ??[id number] Narrative 05/20/2023 3:33 PM SIDEHAND Examination: ??XR PELVIS AND HIP PORTABLE LEFT [...] right hip. RICHIE SCHRADER MD SYSTEM ID: [id number] Mimi Richardson PA-C IMG DIAGNOSTIC IMAGI NG ORDERABLES * (ABNORMAL) Glucose by meter (05/20/2023 2:48 PM SIDEHAND) Pathologist [facility] GLUCOSE BY METER POCT 123(H) 70 - 99 mg/dL 05/20/2023 2:55 PM SIDEHAND LABORATORY POC Blood, Capillary BLOOD SPECIMEN / Unknown 05/20/2023 2:48 PM SIDEHAND 05/20/2023 2:55 PM SIDEHAND Favio Gasca MD LAB - BEAKER POC T LABORATORY POC [facility] [address] Lab (1st floor, no room number) [place] [address] [phone] * Glucose by meter (05/20/2023 11:43 AM SIDEHAND) GLUCOSE BY METER POCT 98 70 - 99 mg/dL 05/20/2023 11:50 AM SIDEHAND RH LABORATORY POC Comment:Dr/RN Notified Blood, Capillary BLOOD SPECIMEN / Unknown 05/20/2023 11:43 AM SIDEHAND 05/20/2023 11:50 AM SIDEHAND Favio Gasca MD LAB - BEAKER POC T RH LABORATORY POC [facility] [address] Lab (1st floor, no room number) [place] [address] [phone] * ABO and Rh (05/20/2023 11:40 AM SIDEHAND) SPECIMEN EXPIRATION DATE [id number] 05/20/2023 12:58 PM SIDEHAND RH BLOOD BANK Blood STRUCTURE OF RIGHT UPPER LIMB / Unknown Venipuncture / Unknown 05/20/2023 11:40 AM SIDEHAND 05/20/2023 11:46 AM SIDEHAND Sara Correa MD LAB - BLOOD BANK DM T ORDER Performing Organization Address [facility]/ZIP Co de Phone Number RH BLOOD BANK [address] [place] [address], [facility] * Adult Type and Screen (05/20/2023 11:40 AM SIDEHAND) ABO/RH(D) A POS 05/20/2023 11:34 AM SIDEHAND RH BLOOD BANK Comment:? P atient is a Weak or Partial D and will be considered Rh Positive for transfusion purposes. If frequent transfusion is anticipated, order RHD Genotype ([id number])? Antibody Screen Negative Negative 05/20/2023 11:34 AM SIDEHAND RH BLOOD BANK SPECIMEN EXPIRATION DATE [id number] 05/20/2023 11:34 AM SIDEHAND RH BLOOD BANK Blood STRUCTURE OF RIGHT UPPER LIMB / Unknown Venipuncture / Unknown 05/20/2023 11:40 AM SIDEHAND 05/20/2023 11:46 AM SIDEHAND Sara Correa MD LAB - BLOOD BANK DM T ORDER BLOOD BANK [address] [place] [address], [facility] * CBC with platelets (05/20/2023 11:40 AM SIDEHAND) WBC Count 7.5 4.0 - 11.0 10e3/uL 05/20/2023 11:48 AM SIDEHAND RH LABORATORY RBC Count 4.42 3.80 - 5.20 10e6/uL 05/20/2023 11:48 AM SIDEHAND RH LABORATORY Hemoglobin 12.9 11.7 - 15.7 g/dL 05/20/2023 11:48 AM SIDEHAND RH LABORATORY Hematocrit 39.8 35.0 - 47.0 % 05/20/2023 11:48 AM SIDEHAND RH LABORATORY MCV 90 78 - 100 fL 05/20/2023 11:48 AM SIDEHAND RH LABORATORY MCH 29.2 26.5 - 33.0 pg 05/20/2023 11:48 AM SIDEHAND RH LABORATORY MCHC 32.4 31.5 - 36.5 g/dL 05/20/2023 11:48 AM SIDEHAND RH LABORATORY RDW 12.7 10.0 - 15.0 % 05/20/2023 11:48 AM SIDEHAND RH LABORATORY Platelet Count 203 150 - 450 10e3/uL 05/20/2023 11:48 AM SIDEHAND RH LABORATORY Blood STRUCTURE OF RIGHT UPPER LIMB / Unknown Venipuncture / Unknown 05/20/2023 11:40 AM SIDEHAND 05/20/2023 11:46 AM SIDEHAND Sara Correa MD LAB - BLOOD ORDERABL ES LABORATORY [facility] [address] [facility] Lab (1st floor, no room number) [place] [address], [facility] [phone] * EKG CARDIAC - HIM SCAN (04/27/2023 12:00 AM SIDEHAND) 04/27/2023 Provider Outside ECG ORDERABLES * EKG CARDIAC - HIM SCAN (04/27/2023 12:00 AM SIDEHAND) 04/27/2023 Provider Outside ECG ORDERABLES documented in this encounter Visit Diagnoses Diagnosis S/P total left hip arthroplasty- Primary Primary osteoarthritis of left hip Primary localized osteoarthrosis, pelvic region and thigh Osteoarthritis of left hip Osteoarthrosis, unspecified whether generalized or localized, pelvic region and thigh documented in this [...] management to improve pain control., Starting on 05/23/23 at 0000, May give first dose [...] exceed 4 grams/day. $Given 05/21/2023 7:52 AM SIDEHAND 975 mg $Given 05/21/2023 1:32 AM SIDEHAND 975 mg $Given 05/20/2023 5:25 PM SIDEHAND 975 mg aspirin (ASA) EC tablet 325 mg 325 mg, Oral, DAILY, First dose on Jaycee 05/20/23 at 1500, Indications: VTE Prophylaxis, DO NOT CRUSH. DO NOT CRUSH. $Given 05/21/2023 7:44 AM SIDEHAND 325 mg $Given 05/20/2023 5:25 PM SIDEHAND 325 mg benzocaine-menthol (CHLORASEPTIC) 6-10 MG lozenge [...] Perioperative Pharmacoprophylaxis $New Bag 05/21/2023 5:18 AM SIDEHAND 2 g 200 mL/hr $New Bag 05/20/2023 10:05 PM SIDEHAND 2 g 200 mL/hr famotidine (PEPCID) injection [...] First dose on Jaycee 05/20/23 at 2000 $Given 05/21/2023 7:44 AM SIDEHAND 20 mg $Given 05/20/2023 7:48 PM SIDEHAND 20 mg fentaNYL (PF) (SUBLIMAZE) injection 50 [...] HYDROmorphone (DILAUDID)., PACU $Given 05/20/2023 2:59 PM SIDEHAND 50 mcg $Given 05/20/2023 2:50 PM SIDEHAND 50 mcg HYDROmorphone (DILAUDID) injection 0.2 mg 0.2 mg, Intravenous, EVERY 2 HOURS PRN, moderate pain, Starting on Jaycee 05/20/23 at 1449, IF patient unable to take oral pain medication or pain not controlled with oral analgesics. Hold IV PRN opioid dose for analgesic side effects. Notify provider to assess for uncontrolled pain or analgesic side effects. $Given 05/20/2023 6:03 PM SIDEHAND 0.2 mg HYDROmorphone (DILAUDID) injection 0.4 mg [...] side effects., PACU $Given 05/20/2023 3:41 PM SIDEHAND 0.4 mg $Given 05/20/2023 3:31 PM SIDEHAND 0.4 mg $Given 05/20/2023 3:15 PM SIDEHAND 0.4 mg HYDROmorphone (DILAUDID) injection 0.4 mg [...] MONITOR pt CLOSELY $Given 05/21/2023 7:45 AM SIDEHAND 25 mg $Given 05/20/2023 6:03 PM SIDEHAND 25 mg lactated ringers infusion at 100 mL/hr, Intravenous, CONTINUOUS, Continue until IV catheter is weaned, PACU, Starting on Jaycee 05/20/23 at 1500, Until [place]cee 05/20/23 at 1653 $New Bag 05/20/2023 2:54 PM SIDEHAND 100 mL/hr lactated ringers infusion at 10 mL/hr, Intravenous, CONTINUOUS, IF patient NOT on dialysis., Pre-procedure, Starting on [place]cee 05/20/23 at 1200, Until Jaycee 05/20/23 at 1439 $New Bag 05/20/2023 12:26 PM SIDEHAND 10 mL/hr lactated ringers infusion at 50 mL/hr, Intravenous, CONTINUOUS, IF overnight stay, continue IV fluids until 0400 POD #1, then may saline lock if tolerating oral fluids. IF Day of Surgery Discharge, continue IV Fluids until one hour before discharge., Starting on Wed05/20/23 at 1500, Until Wed05/21/23 at 1546 Rate/Dose Verify 05/20/2023 5:16 PM SIDEHAND 50 mL/hr lidocaine (LMX4) cream Topical, EVERY [...] 1 dose, PACU $Given 05/20/2023 3:22 PM SIDEHAND 1 mg magnesium hydroxide (MILK OF MAGNESIA) [...] 2 MIN PRN, opioid reversal, Starting on [facility] 05/20/23 at 1658, Administer intravenous route when [...] 2 MIN PRN, opioid reversal, Starting on [facility] 05/20/23 at 1658, Administer intramuscular if an [...] Administer over 2-5 Minutes, Starting on Jaycee 12//23 at 1449, This is Step 1 of nausea and vomiting management. If nausea not resolved in 15 minutes, go to Step 2 prochlorperazine (COMPAZINE). Irritant. $Given 05/20/2023 5:54 PM SIDEHAND 4 mg oxyCODONE (ROXICODONE) tablet 10 mg 10 mg, Oral, EVERY 4 HOURS PRN, severe pain, Starting on [place] 05/20/23 at 1449, Hold oral PRN dose for analgesic side effects. Notify provider to assess for uncontrolled pain or analgesic side effects. Hold while on IV COMPLIANCE AND CONTROL ANALYST or with regular IV opioid dosing. oxyCODONE (ROXICODONE) tablet 5 mg 5 mg, Oral, ONCE PRN, moderate pain, Starting on [place] 05/20/23 at 1450, For 1 dose, Max: 5 mg for opioid-na??ve patient., Phase ll $Given 05/20/2023 4:03 PM SIDEHAND 5 mg oxyCODONE (ROXICODONE) tablet 5 mg 5 mg, Oral, EVERY 4 HOURS PRN, moderate pain, Starting on [place] 05/20/23 at 1449, Hold oral PRN dose for analgesic side effects. Notify provider to assess for uncontrolled pain or analgesic side effects. Hold while on IV COMPLIANCE AND CONTROL ANALYST or with regular IV opioid dosing. $Given 05/21/2023 12:02 PM SIDEHAND 5 mg $Given 05/21/2023 7:45 AM SIDEHAND 5 mg $Given 05/21/2023 1:51 AM SIDEHAND 5 mg polyethylene glycol (MIRALAX) Packet 17 [...] bowel clean out. $Given 05/21/2023 7:44 AM SIDEHAND 17 g povidone-iodine 10% (17 mL) (BETADINE) in 500 mL saline irrigation PRN, Starting on Jaycee 05/20/23 at 1423, Intra-procedure $Given 05/20/2023 2:23 PM SIDEHAND 500 ml given Operative Site/Surgical Site prochlorperazine (COMPAZINE) injection 10 mg 10 mg, [...] not resolved in 15-30 minutes, Notify provider. ROPivacaine (NAROPIN) 5 MG/ML 150 mg, ketorolac (TORADOL) 30 mg, EPINEPHrine (ADRENALIN) 0.6 mg in sodium chloride 0.9 % 50 mL (ORTHO THOMAS LOW DOSE) INTRA-ARTICULAR, TROUT FARMER TO O.R., Starting on [place]ce[place] 05/20/23 at 1300, For 1 dose, NOT FOR IV INJECTION. Used by provider at the end of surgery., Pre-procedure $Given 05/20/2023 2:24 PM SIDEHAND Operative Site/Surgical Site senna-docusate (SENOKOT-S/PERICOLACE) 8.6-50 MG per tablet 1 tablet 1 tablet, Oral, 2 TIMES DAILY, First dose on Jaycee 05/20/23 at 2000, To prevent constipation. Hold for loose stools Hold for loose stools. $Given 05/21/2023 7:45 AM SIDEHAND 1 tablet $Given 05/20/2023 7:47 PM SIDEHAND 1 tablet sodium chloride (PF) 0.9% PF [...] at 1449 sodium chloride 0.9% irrigation (bag) PRN, Starting on [place] 05/20/23 at 1425, Intra-procedure $Given 05/20/2023 2:25 PM SIDEHAND 1,800 mLs Operative Site/Surgi zuleyma Site tranexamic acid (LYSTEDA) tablet 1,950 mg 1,950 mg, Oral, ONCE, On Jaycee 05/20/23 at 1130, For 1 dose, Administer with a sip of water in PRE OP area 90 minutes PRIOR to leaving Pre-op area., Pre-procedure $Given 05/20/2023 11:20 AM SIDEHAND 1,950 mg vancomycin (VANCOCIN) topical powder PRN, Starting on [place] 05/20/23 at 1425, Intra-procedure $Given 05/20/2023 2:25 PM SIDEHAND 1 g Operative Site/Surgi zuleyma Site documented in this encounter Active and Recently Administered Medications Times are shown in SIDEHAND. Scheduled Medication Order 05/19/2023 05/20/2023 05/21/2023 acetaminophen (TYLENOL) tablet 975 mg 975 mg, Oral, EVERY 8 HOURS, First dose on [place]cee 05/20/23 at 1500, For 3 days, Administer for multimodal surgical pain management. Maximum acetaminophen dose from all sources = 75 mg/kg/day not to exceed 4 grams/day. 1725 ($Given - Provider: Nolvia Alicea RN) 0132 ($Given - Provider: Poornima Butt RN)0752 ($Given - Provider: Delmi Perrin RN)0900 (Canceled Entry - Provider: Delmi Perrin RN) [...] EVERY 8 HOURS, First dose on Jaycee 23 at 2100, For 2 doses, First post-op [...] Pharmacoprophylaxis, Pre-procedure 1304 ($Given - Provider: Sepideh Huertas, HAI ONLINE ADVERTISING DIRECTOR) famotidine (PEPCID) injection 20 mg(Linked Group 1) 20 mg, Intravenous, Administer over 2 Minutes, 2 TIMES DAILY, First dose on [place]ce[place] 05/20/23 at 2000, If unable to take oral For ordered IV doses 1-20 mg, give IV Push diluted with 5-10 mL NS over a minimum of 2 minutes. 1948 (See Alternative - Provider: Nolvia Alicea RN) 0744 (See Alternative - Provider: Delmi Perrin RN) famotidine (PEPCID) tablet 20 mg(Linked Group 1) 20 mg, Oral, 2 TIMES DAILY, First dose on Jaycee 23 at 1999 1948 ($Given - Provider: Nolvia Alicea RN) 0744 [...] mL (ORTHO THOMAS LOW DOSE) (COMPLETED) INTRA-ARTICULAR, TROUT FARMER TO O.R., Starting on Wed05/20/23 at 1300, For 1 dose, NOT FOR IV INJECTION. Used by provider at the end of surgery., Pre-procedure 1424 ($Given - Provider: Favio Gasca MD) senna-docusate (SENOKOT-S/PERICOLACE) 8.6-50 MG per tablet 1 tablet 1 tablet, Oral, 2 TIMES DAILY, First dose on Wed05/20/23 at 2000, To prevent constipation. Hold for loose stools Hold for loose stools. 1947 ($Given - Provider: Nolvia Alicea RN) 0745 ($Given - Provider: Delmi Perrin RN) sodium chloride (PF) 0.9% PF flush 3 mL 3 mL, Intracatheter, EVERY 8 HOURS, First dose on Wed05/20/23 at 1500, to lock peripheral IV dormant [...] 1653 1454 ($New Bag - Provider: Oralia Nye RN) lactated ringers infusion (CANCELED) at 10 mL/hr, [...] management to improve pain control., Starting on Wed05/23/23 at 0000, May give first dose 4 [...] pt CLOSELY 1803 ($Given - Provider: Nolvia Alicea RN) 0745 [...] (COMPAZINE). Irritant. 1754 ($Given - Provider: Nolvia Alicea RN) oxyCODONE (ROXICODONE) tablet 10 mg(Linked Group 5) 10 mg, Oral, EVERY 4 HOURS PRN, severe pain, Starting on Jaycee 23 at 1449, Hold oral PRN dose for analgesic side effects. Notify provider to assess for uncontrolled pain or analgesic side effects. Hold while on IV COMPLIANCE AND CONTROL ANALYST or with regular IV opioid dosing. 1946 (See Alternative - Provider: Nolvia Alicea RN) 015 (See Alternative - Provider: Poornima Butt, MARTHA)0745 (See Alternative - Provider: Delmi Perrin, MARTHA)1202 (See Alternative - Provider: Delmi Perrin, MARTHA) oxyCODONE (ROXICODONE) tablet 5 mg (COMPLETED) 5 mg, Oral, ONCE PRN, moderate pain, Starting on Jaycee 05/20/23 at 1450, For 1 dose, Max: 5 mg for opioid-na??ve patient., Phase ll 1603 ($Given - Provider: Brandi Hager RN) oxyCODONE (ROXICODONE) tablet 5 mg(Linked Group 5) 5 mg, Oral, EVERY 4 HOURS PRN, moderate pain, Starting on Jaycee 23 at 1449, Hold oral PRN dose for analgesic side effects. Notify provider to assess for uncontrolled pain or analgesic side effects. Hold while on IV COMPLIANCE AND CONTROL ANALYST or with regular IV opioid dosing. 1946 ($Given - Provider: Nolvia Alicea RN) 150 ($Given - Provider: Poornima Butt RN)0745 ($Given - Provider: Delmi Perrin, MARTHA)1202 ($Given - Provider: Dlemi Perrin RN) povidone-iodine 10% (17 mL) (BETADINE) in 500 mL saline irrigation (CANCELED) PRN, Starting on Jaycee 05/20/23 at 1423, Intra-procedure 1423 ($Given - Provider: Favio Gasca MD) prochlorperazine (COMPAZINE) injection 10 mg(Linked Group 6) 10 mg, Intravenous, EVERY 6 HOURS PRN, nausea, vomiting, Administer over 1-2 Minutes, Starting on Jaycee 1223 at 1449, This is Step 2 of [...] Administer over 2-5 Minutes, Starting on Jaycee 1223 at 1449, This [...] analgesic side effects. Hold while on IV COMPLIANCE AND CONTROL ANALYST or with regular IV opioid dosing. Or oxyCODONE (ROXICODONE) tablet 10 mgJump to med 10 mg, Oral, EVERY 4 HOURS PRN, severe pain, Starting on Jaycee 1223 at 1449, Hold oral PRN dose for analgesic side effects. Notify provider to assess for uncontrolled pain or analgesic side effects. Hold while on IV COMPLIANCE AND CONTROL ANALYST or with regular IV opioid dosing. Group [...] HOURS PRN, nausea, vomiting, Starting on Jaycee 12//23 at 1449, This is Step 2 of nausea and vomiting management. If nausea not resolved in 15- 30 minutes, Notify provider. documented in this encounter Care Teams Sewing Machine Attachment Tester Relationship Specialty Start Date [place] [address] PCP - General Internal Medicine 04/26/23 documented as of this encounter
--- OUTSIDE RECORDS SUMMARY | 2023-06-16 12:05 | XMS_ITS | Referral Summary ---
Author Name Unknown Organization [facility] Address [address] [place] [address] Care Team Providers Care Bag Machine Adjuster Name Role Phone Rae Dorantes MD Primary Care Provider Encounters Date Type Department Care Team Description 05/20/2023 10:43 AM THRESHING DEPARTMENT SUPERVISOR - 05/21/2023 1:41 PM THRESHING DEPARTMENT SUPERVISOR Hospital Encounter [facility] [address] [place] [address] Favio Gasca MD Primary osteoarthritis of left hip (Primary Dx) Discharge Disposition: Home or Self Care 05/20/2023 1:04 PM THRESHING DEPARTMENT SUPERVISOR Anesthesia Event [facility] [address] [place] [address] Sara Correa MD 05/20/2023 12:50 PM THRESHING DEPARTMENT SUPERVISOR - 05/20/2023 3:10 PM THRESHING DEPARTMENT SUPERVISOR Surgery [facility] [address] [place] [address] Favio Gasca MD Left total hip arthroplasty 04/23/2023 Travel from Last 3 Months Allergies Active Allergy Reactions Criticality Noted Date [...] by mouth 2 times daily 0 Active gubbjhw-kiiojfy-tydd yl elizabeth 4-10-30 % CREA Apply topically [...] Date S/P total left hip arthroplasty 05/20/2023 Social History Tobacco Use Types Packs/Day Years [...] Sex Assigned at Female 05/01/2023 11:03 AM THRESHING DEPARTMENT SUPERVISOR Gender Identity Female 05/01/2023 11:03 AM THRESHING DEPARTMENT SUPERVISOR Sexual Orientation Not on file Last Filed Vital Signs Vital Sign Reading Time Taken Comments Blood Pressure 116/52 05/21/2023 1:00 PM THRESHING DEPARTMENT SUPERVISOR Pulse 82 05/21/2023 1:00 PM THRESHING DEPARTMENT SUPERVISOR Temperature 36.8 ??C (98.2 ??F) 05/21/2023 1:00 PM CS T Respiratory Rate 16 05/21/2023 1:00 PM THRESHING DEPARTMENT SUPERVISOR Oxygen Saturation 98% 05/21/2023 1:00 PM THRESHING DEPARTMENT SUPERVISOR Inhaled Oxygen Concentration - - Weight 111.3 kg (245 lb 4.8 oz) 023 11:14 AM THRESHING DEPARTMENT SUPERVISOR Height 170.2 cm (5' 7) 05/04/2023 11:0 0 AM THRESHING DEPARTMENT SUPERVISOR Body Mass Index 38.42 05/04/2023 11:00 AM THRESHING DEPARTMENT SUPERVISOR Plan of Treatment Not on file Goals Goal Patient Goal Type Associated Problems Recent Progress Patient-Stated? Author Total Joint Replacement Hip Pathway Care Plan Total Joint Replacement Hip Pathway No Felipe Gaines, MARTHA Medical Devices Implanted Type Area Lens Coating Technician Device Identifier Shelf Expiration Date Model / Serial / Lot Imp Scr Strk Low Profile Hex 6.5x30mm [id number] - [id number] Implanted:Qty : 2 on 05/20/2023 by Favio Gasca MD at [facility] Metallic Hardware/Anc hor Left: Hip [employer] 02/24/2028 [id number] / / [id number] Imp Head Femoral Strk Biolox Delta Ceramic V40 36mm - [id number] Implanted:Qty : 1 on 05/20/2023 by Favio Gasca MD at [facility] Total Joint Component/In sert Left: Hip [employer] 12/31/2027 6570-0-43 6 / / [id number] Procedures Procedure Name Priority Date/Time Associated Diagnosis Comments GLUCOSE Routine 05/21/2023 6:51 AM THRESHING DEPARTMENT SUPERVISOR HEMOGLOBIN Routine 05/21/2023 6:51 AM THRESHING DEPARTMENT SUPERVISOR GLUCOSE BY METER Routine 05/21/2023 1:22 AM THRESHING DEPARTMENT SUPERVISOR GLUCOSE BY METER Routine 05/20/2023 9:37 PM THRESHING DEPARTMENT SUPERVISOR GLUCOSE BY METER Routine 05/20/2023 5:32 PM THRESHING DEPARTMENT SUPERVISOR XR PELVIS AND HIP PORTABLE LEFT 1 VIEW STAT 05/20/2023 3:29 PM THRESHING DEPARTMENT SUPERVISOR GLUCOSE BY METER Routine 05/20/2023 2:48 PM THRESHING DEPARTMENT SUPERVISOR ANE SPINAL BLOCK FORM Routine 05/20/2023 1:06 PM THRESHING DEPARTMENT SUPERVISOR ARTHROPLASTY, HIP, TOTAL 05/20/2023 12:51 PM THRESHING DEPARTMENT SUPERVISOR Osteoarthritis of left hip Special Needs MB -No (BMI) GLUCOSE BY METER Routine 05/20/2023 11:4 3 AM THRESHING DEPARTMENT SUPERVISOR ABO/RH TYPE AND SCREEN STAT 05/20/2023 11:40 AM THRESHING DEPARTMENT SUPERVISOR ABO AND RH STAT 05/20/2023 11:40 AM THRESHING DEPARTMENT SUPERVISOR TYPE AND SCREEN, ADULT STAT 05/20/2023 11:40 AM THRESHING DEPARTMENT SUPERVISOR CBC WITH PLATELETS STAT 05/20/2023 11 :40 AM THRESHING DEPARTMENT SUPERVISOR EKG CARDIAC - HIM SCAN 04/27/2023 12:00 AM THRESHING DEPARTMENT SUPERVISOR EKG CARDIAC - HIM SCAN 04/27/2023 12:00 AM THRESHING DEPARTMENT SUPERVISOR from Last 3 Months Results * (ABNORMAL) Hemoglobin (05/21/2023 6:51 AM THRESHING DEPARTMENT SUPERVISOR) Hemoglobin 10.2(L) 11.7 - 15.7 g/dL 05/21/2023 6:59 AM THRESHING DEPARTMENT SUPERVISOR RH LABORATORY Blood STRUCTURE OF RIGHT UPPER LIMB / Unknown Venipuncture / Unknown 05/21/2023 6:51 AM THRESHING DEPARTMENT SUPERVISOR 05/21/2023 6:54 AM THRESHING DEPARTMENT SUPERVISOR Mimi Richardson PA-C LAB - BLOOD ORDERABL ES LABORATORY [facility] [address] Lab (1st floor, no room number) [place] [address], [place] [phone] * (ABNORMAL) Glucose (05/21/2023 6:51 AM THRESHING DEPARTMENT SUPERVISOR) Glucose 103(H) 70 - 99 mg/dL 05/21/2023 7:14 AM THRESHING DEPARTMENT SUPERVISOR RH LABORATORY Patient Fasting > 8hrs? Yes 05/21/2023 7:14 AM THRESHING DEPARTMENT SUPERVISOR RH LABORATORY Blood STRUCTURE OF RIGHT UPPER LIMB / Unknown Venipuncture / Unknown 05/21/2023 6:51 AM THRESHING DEPARTMENT SUPERVISOR 05/21/2023 6:54 AM THRESHING DEPARTMENT SUPERVISOR Favio Gasca MD LAB - BLOOD ORDE RABCHARLEE Performing Organization Address City/[facility]/ZIP Co de Phone Number LABORATORY [facility] [address] Lab (1st floor, no room number) [place] [address], [place] [phone] * (ABNORMAL) Glucose by meter (05/21/2023 1:22 AM THRESHING DEPARTMENT SUPERVISOR) Only the most recent of5 resultswithin the time period is included. GLUCOSE BY METER POCT 129(H) 70 - 99 mg/dL 05/21/2023 1:28 AM THRESHING DEPARTMENT SUPERVISOR LABORATORY POC Blood, Capillary BLOOD SPECIMEN / Unknown 05/21/2023 1:22 AM THRESHING DEPARTMENT SUPERVISOR 05/21/2023 1:28 AM THRESHING DEPARTMENT SUPERVISOR Favio Gasca MD LAB - BEAKER POC T LABORATORY POC [facility] [address] Lab (1st floor, no room number) [place] [address], [facility] [phone] * XR Pelvis w Hip Port Left 1 View (05/20/2023 3:29 PM THRESHING DEPARTMENT SUPERVISOR) Anatomical Region Laterality Modality Abdomen/Pelvis Left Digital Radiogra phy Impressions 05/20/2023 3:33 PM THRESHING DEPARTMENT SUPERVISOR Impression: 1. ??Completed left total hip arthroplasty. Normal joint alignment. No evidence of periprostatic fracture or other immediate complication. Postoperative air in the surrounding soft tissues. 2. ??Advanced degenerative arthritic changes in the right hip. RICHIE SCHRADER MD SYSTEM ID: ??[id number] Narrative 05/20/2023 3:33 PM THRESHING DEPARTMENT SUPERVISOR Examination: ??XR PELVIS AND HIP PORTABLE LEFT [...] right hip. RICHIE SCHRADER MD SYSTEM ID: [id number] Mimi Richardson PA-C IMG DIAGNOSTIC IMAGI NG ORDERABLES * Spinal Block (05/20/2023 1:06 PM THRESHING DEPARTMENT SUPERVISOR) Narrative Sara Correa MD - 05/20/2023 1:06 PM THRESHING DEPARTMENT SUPERVISOR Sara Correa MD ? 05/20/2023 ??1:24 PM [...] complications, patient tolerated the procedure well. FOR [facility] ([facility]) ONLY: ?? Pain Team Contact information: please page the Pain Team Via [employer]. Search Pain. During daytime hours, please page the attending first. At night please page the resident first. Sara Correa MD [place] ANESTHESIA * Adult Type and Screen (05/20/2023 11:40 AM THRESHING DEPARTMENT SUPERVISOR) ABO/RH(D) A POS 05/20/2023 11:34 AM THRESHING DEPARTMENT SUPERVISOR RH BLOOD BANK Comment:? P atient is a Weak or Partial D and will be considered Rh Positive for transfusion purposes. If frequent transfusion is anticipated, order RHD Genotype ([id number])? Antibody Screen Negative Negative 05/20/2023 11:34 AM THRESHING DEPARTMENT SUPERVISOR RH BLOOD BANK SPECIMEN EXPIRATION DATE [id number] 05/20/2023 11:34 AM THRESHING DEPARTMENT SUPERVISOR RH BLOOD BANK Blood STRUCTURE OF RIGHT UPPER LIMB / Unknown Venipuncture / Unknown 05/20/2023 11:40 AM THRESHING DEPARTMENT SUPERVISOR 05/20/2023 11:46 AM THRESHING DEPARTMENT SUPERVISOR Sara Correa MD LAB - BLOOD BANK DM T ORDER Performing Organization Address [facility] Co de Phone Number BLOOD BANK [address] [place] [address] * ABO and Rh (05/20/2023 11:40 AM THRESHING DEPARTMENT SUPERVISOR) SPECIMEN EXPIRATION DATE [id number] 05/20/2023 12:58 PM THRESHING DEPARTMENT SUPERVISOR BLOOD BANK Blood STRUCTURE OF RIGHT UPPER LIMB / Unknown Venipuncture / Unknown 05/20/2023 11:40 AM THRESHING DEPARTMENT SUPERVISOR 05/20/2023 11:46 AM THRESHING DEPARTMENT SUPERVISOR Sara Correa MD LAB - BLOOD BANK DM T ORDER Performing Organization Address [facility] de Phone Number BLOOD BANK [address] [place] [address], [facility] * CBC with platelets (05/20/2023 11:40 AM THRESHING DEPARTMENT SUPERVISOR) WBC Count 7.5 4.0 - 11.0 10e3/uL 05/20/2023 11:48 AM THRESHING DEPARTMENT SUPERVISOR RH LABORATORY RBC Count 4.42 3.80 - 5.20 10e6/uL 05/20/2023 11:48 AM THRESHING DEPARTMENT SUPERVISOR RH LABORATORY Hemoglobin 12.9 11.7 - 15.7 g/dL 05/20/2023 11:48 AM THRESHING DEPARTMENT SUPERVISOR RH LABORATORY Hematocrit 39.8 35.0 - 47.0 % 05/20/2023 11:48 AM THRESHING DEPARTMENT SUPERVISOR RH LABORATORY MCV 90 78 - 100 fL 05/20/2023 11:48 AM THRESHING DEPARTMENT SUPERVISOR RH LABORATORY MCH 29.2 26.5 - 33.0 pg 05/20/2023 11:48 AM THRESHING DEPARTMENT SUPERVISOR RH LABORATORY MCHC 32.4 31.5 - 36.5 g/dL 05/20/2023 11:48 AM THRESHING DEPARTMENT SUPERVISOR RH LABORATORY RDW 12.7 10.0 - 15.0 % 05/20/2023 11:48 AM THRESHING DEPARTMENT SUPERVISOR RH LABORATORY Platelet Count 203 150 - 450 10e3/uL 05/20/2023 11:48 AM THRESHING DEPARTMENT SUPERVISOR RH LABORATORY Blood STRUCTURE OF RIGHT UPPER LIMB / Unknown Venipuncture / Unknown 05/20/2023 11:40 AM THRESHING DEPARTMENT SUPERVISOR 05/20/2023 11:46 AM THRESHING DEPARTMENT SUPERVISOR Sara Correa MD LAB - BLOOD ORDERABL ES RH LABORATORY [facility] [address] Lab (1st floor, no room number) [place] [address], [facility] [phone] * EKG CARDIAC - HIM SCAN (04/27/2023 12:00 AM THRESHING DEPARTMENT SUPERVISOR) Only the most recent of2 resultswithin the time period is included. 04/27/2023 Provider Outside ECG ORDERABLES from Last 3 Months Additional Health Concerns Problem Noted Date Diagnosed Date Total Joint Replacement Hip Pathway 05/10/2023 Advance Directives For more information, please contact: [phone] Latest Code Status on File Code Status Date Activated Date Inactivated Comments Full Code 05/20/2023 2:50 PM 05/21/2023 3:41 PM All basic and advanced life-sustaining interventions are performed as appropriate Question Answer Comments Code status determined by: Unable to discuss and no AD/POLST on file; continue PREVIOUSLY ORDERED code status Care Teams Bag Machine Adjuster Relationship Specialty Start Date End Date Rae Dorantes MD [facility] & [address] [address] PCP - General Internal Medicine 04/26/23
--- OUTSIDE RECORDS SUMMARY | 2023-06-16 12:06 | XMS_ITS | Clinical Summary ---
Author Name Unknown Organization [facility] [employer] [employer] Address [place], [place] [address] Care Team Providers Care Shell Plater Name Role Phone Pcp, No Primary Care Provider Unavailabl e Allergies Active Allergy Reactions Criticality Noted Date Comments Cetirizine Tongue Swelling 10/05/2006 Medications Medication Sig Dispensed Refills Start Date End Date Status loratadine-pseudoephed rine, 10-240 mg, 24 hr (CLARITIN-D 24 HOUR) 10-240 mg per tablet Take 1 tablet by mouth once daily. 0 02/24/2011 Active levothyroxine (SYNTHROID) 175 mcg tablet Take 1 tablet by mouth once daily. 0 02/24/2011 Active Active Problems Problem Noted Date Diagnosed Date Unspecified sleep apnea 09/30/2006 Overview: moderate HYPOTHYROIDISM Esophageal reflux Overview: h/o ulcer Obesity, unspecified Social History Tobacco Use Types Packs/Day Years Used Date Smoking Tobacco: Never Smokeless Tobacco: Never Alcohol Use Standard Drinks/Week Comments No 0 (1 standard drink = 0.6 oz pur e alcohol) Sex and Gender Information Value Date Recorded Sex Assigned at Not on file Gender Identity Not on file Sexual Orientation Not on file Obstetrics History Last Filed Vital Signs Vital Sign Reading Time Taken Comments Blood Pressure 135/84 07/14/2011 1:13 PM ACUPRESSURIST Pulse 93 07/14/2011 1:13 PM ACUPRESSURIST Temperature 36.3 ??C (97.4 ??F) 07/14/2011 1:13 PM CS T Respiratory Rate - - Oxygen Saturation 95% 10/05/2006 10: 45 AM CDT Inhaled Oxygen Concentration - - Weight 122.3 kg (269 lb 9.6 oz) 07/14/2011 1:13 PM ACUPRESSURIST Height - - Body Mass Index - - Plan of Treatment Health Maintenance Due Date Last Done Comments COVID-19 vaccine series (#1) 03/06/1965 Tdap 09/05/1975 Depression screening for age 12+ 1976 HIV for age 15-65 09/05/1979 BMI (ht and wt on same day) for age 18+ 1982 Hepatitis C screening for age 18-79 1982 Pap test for age 21-65 1985 Colonoscopy through age 75 2009 Lipids for age 45-75 2009 Mammogram for age 45-75 2009 Zoster (shingles) series for age 50+ (1 of 2) 2014 Tetanus booster 03/06/2018 03/06/2008 (Comp leted outside of [facility]) Influenza for age 50-64 01/29/2023 Pneumococcal series for age 6-64 Aged Out No longer eligible based on patient's age to complete this topic Care Teams Shell Plater Relationship Specialty Start Date End Date Pcp, No . PCP - General 02/09/12
== END 2023-06-14 15:13 | disposition home or self-care (01) ==
LOC: NFLDREF 06-16 12:02
PROVIDERS: PCP Internal Medicine; Referring Provider Internal Medicine; Visit Provider Internal Medicine
DX: E11.42 Type 2 diabetes mellitus with diabetic polyneuropathy (principal); N39.46 Mixed incontinence; Z79.85 Long-term (current) use of injectable non-insulin antidiabetic drugs
CPT/HCPCS: 82043; 82570

== ENCOUNTER 2023-09-28 10:00 | Outpatient (RCR) | payer OTHER, SELFPAY | END 2024-01-06 10:28 | disposition home or self-care (01) | PROVIDERS: PCP Internal Medicine; Visit Provider Internal Medicine | DX: N39.46 Mixed incontinence (principal); K59.00 Constipation, unspecified; Z51.89 Encounter for other specified aftercare | CPT/HCPCS: 97110; 97112; 97140; 97161; 97535 ==

== ENCOUNTER 2023-11-23 14:34 | Outpatient (CLI) | payer OTHER, SELFPAY ==
--- OUTSIDE RECORDS SUMMARY | 2023-11-26 08:39 | XMS_ITS | Encounter Summary ---
Author Organization [facility] Address [address] [place] [address]. [place] [address] Care Team Providers Care Suit Attendant Name Role Phone Rae Dorantes MD Primary Care Provider [phone] Encounter Details Date Type Department Care Team (Latest Contact Info) Description 11/22/2023 Travel Social History Tobacco Use Types Packs/Day [...] Sex Assigned at Female 05/01/2023 11:03 AM ELECTION JUDGE Gender Identity Female 05/01/2023 11:03 AM ELECTION JUDGE Sexual Orientation Not on file documented as of this encounter Plan of Treatment Upcoming Encounters Date Type Department Care Team (Latest Contact Info) Description 12/09/2023 8:45 AM CDT Hospital Encounter [facility] [address] [place] [phone] Favoi Gasca MD [facility] [address] [facility] [address] [place] [address] 12/09/2023 8:45 AM CDT - 12/09/2023 11:10 AM CDT Surgery [facility] [address] [place] [address] Favio Gasca MD [facility] [address], [place] [address] [place] [address] Right total hip arthroplasty Scheduled Procedures Name Priority Associated Diagnoses Date/Ti me ARTHROPLASTY, HIP, TOTAL Primary osteoarthritis of right hip 12/09/2023 8:45 AM CDT documented as of this encounter Goals Goal Patient Goal Type Associated Problems Recent Progress Patient-Stated? Author Total Joint Replacement Hip Pathway Care Plan Total Joint Replacement Hip Pathway No Felipe Gaines, RN documented as of this encounter Visit Diagnoses Not on filedocumented in this encounter Additional Health Concerns Active Problems Noted Date Diagnosed Date Total Joint Replacement Hip Pathway 05/10/2023 documented as of this encounter Care Teams Suit Attendant Relationship Specialty Start Date End Date Rae Dorantes MD [facility] & [address] [address] PCP - General Internal Medicine 04/26/23 documented as of this encounter
--- OUTSIDE RECORDS SUMMARY | 2023-11-26 08:39 | XMS_ITS | Clinical Summary ---
Author Organization [facility] Address [address] [place] [address]. [place] [address] Care Team Providers Care Spanner Operator Name Role Phone aRe Dorantes MD Primary Care Provider Allergies Active Allergy Reactions Criticality Noted Date Comments Cetirizine Swelling 10/05/2006 Medications Medication Sig Dispensed Refills Start Date End Date Status levothyroxine (SYNTHROID/LEVOTHRO ID) 150 MCG tablet Take 150 mcg by mouth daily Active tirzepatide (MOUNJARO) 2.5 MG/0.5ML pen Inject 2.5 mg Subcutaneous every 7 days Active valsartan-hydrochlo rothiazide (DIOVAN HCT) 160-12.5 MG tablet Take 1 tablet by mouth daily Active simvastatin (ZOCOR) 10 MG tablet Take 10 mg by mouth at bedtime Active Multiple Vitamins-Minerals (MULTIVITAMIN ADULTS 50+ PO) Take 1 tablet by mouth daily Active Turmeric 400 MG CAPS Take 1 capsule by mouth 2 times daily Active hlkoesl-eeoocjq-kbp hyl elizabeth 4-10-30 % CREA Apply topically daily as needed Active albuterol (PROAIR HFA/PROVENTIL HFA/VENTOLIN HFA) 108 (90 Base) MCG/ACT inhaler Inhale 2 puffs into the lungs every 6 hours as needed for shortness of breath, wheezing or cough Active senna-docusate (SENOKOT-S/PERICOLA CE) 8.6-50 MG tabletIndications:P rimary osteoarthritis of left hip Take 1-2 tablets by mouth 2 times daily Take while on oral narcotics to prevent or treat constipation. 30 tablet 05/20/2023 Active polyethylene glycol (MIRALAX) 17 g packetIndications:P rimary osteoarthritis of left hip Take 17 g by mouth daily 7 packet 05/20/2023 Active acetaminophen (TYLENOL) 325 MG tabletIndications:P rimary osteoarthritis of left hip Take 2 tablets (650 mg) by mouth every 4 hours as needed for other (mild pain) 60 tablet 05/20/2023 Active blood glucose monitoring (SOFTCLIX) lancets TEST 1 TIME DAILY 12/23/2022 Active ACCU-CHEK GUIDE test strip daily 12/24/2022 Active aspirin 81 MG EC tablet Take 81 mg by mouth daily Active ibuprofen (ADVIL/MOTRIN) 600 MG tablet Take 600 mg by mouth every 6 hours as needed for moderate pain 4 Discontinu ed(Med Rec(No AVS / No eCancel)) aspirin (ASA) 325 MG EC tabletIndications:P rimary osteoarthritis of left hip Take 1 tablet (325 mg) by mouth daily 42 tablet 05/20/2023 4 Discontinu ed(Med Rec(No AVS / No eCancel)) oxyCODONE (ROXICODONE) 5 MG tabletIndications:P rimary osteoarthritis of left hip Take 1-2 tablets (5-10 mg) by mouth every 4 hours as needed for moderate to severe pain 30 tablet 05/20/2023 4 Discontinu ed(Med Rec(No AVS / No eCancel)) hydrOXYzine HCl (ATARAX) 25 MG tabletIndications:P rimary osteoarthritis of left hip Take 1 tablet (25 mg) by mouth every 6 hours as needed for itching or anxiety (with pain, moderate pain) 30 tablet 05/20/2023 4 Discontinu ed(Med Rec(No AVS / No eCancel)) Active Problems Problem Noted Date Diagnosed Date S/P total left hip arthroplasty 05/20/2023 Encounters Date Type Department Care Team Description 11/22/2023 Travel from Last 3 Months Social History [...] Sex Assigned at Female 05/01/2023 11:03 AM PIGEON FANCIER Gender Identity Female 05/01/2023 11:03 AM PIGEON FANCIER Sexual Orientation Not on file Last Filed Vital Signs Vital Sign Reading Time Taken Comments Blood Pressure 116/52 05/21/2023 1:00 PM PIGEON FANCIER Pulse 82 05/21/2023 1:00 PM PIGEON FANCIER Temperature 36.8 ??C (98.2 ??F) 05/21/2023 1:00 PM CS T Respiratory Rate 16 05/21/2023 1:00 PM PIGEON FANCIER Oxygen Saturation 98% 05/21/2023 1:00 PM PIGEON FANCIER Inhaled Oxygen Concentration - - Weight 102.1 kg (225 lb) 11/22/2023 12:00 PM CDT Height 170.2 cm (5' 7) 11/22/2023 12:00 PM CDT Body Mass Index 35.24 11/22/2023 12:00 PM CDT Plan of Treatment Upcoming Encounters Date Type Department Care Team (Latest Contact Info) Description 12/09/2023 8:45 AM CDT Hospital Encounter [facility] [address] [place] [address] Favio Gasca MD [facility] [address] [address] 12/09/2023 8:45 AM CDT - 12/09/2023 11:10 AM CD[facility] [address] [place] [address] Favio Gasca MD [facility] [address] [address] Right total hip arthroplasty Scheduled Procedures Name Priority Associated Diagnoses Date/Ti me ARTHROPLASTY, HIP, TOTAL Primary osteoarthritis of right hip 12/09/2023 8:45 AM CDT Health Maintenance Due Date Last Done Comments ADVANCE CARE PLANNING 1964 ANNUAL REVIEW OF HM ORDERS 1964 CT COLONOGRAPHY 1964 FIT 1964 FLEX SIG 1964 LIPID 1964 MAMMO SCREENING 1964 TSH W/FREE T4 REFLEX 1964 YEARLY PREVENTIVE VISIT 1964 sDNA (Cologuard) 1964 COLONOSCOPY 1974 COLORECTAL CANCER SCREENING 1974 HIV SCREENING 09/05/1979 HEPATITIS C SCREENING 1982 HEPATITIS B IMMUNIZATION (1 of 3 - 19+ 3-dose series) 09/05/1983 PAP 1985 ZOSTER IMMUNIZATION (1 of 2) 2014 PHQ-2 (once per calendar year) 2023 GLUCOSE 05/21/2026 05/21/2023, 05/01, 05/20/2023, Additional history exists DTAP/TDAP/TD IMMUNIZATION (3 - Td or Tdap) [...] Replacement Hip Pathway No Felipe Gaines, RN Medical Devices Implanted Type Area Cover Cutter Machine Device Identifier Shelf Expiration Date Model / Serial / Lot Imp Scr Strk Low Profile Hex 6.5x30mm 0290-4638 - [id number] Implanted:Qty: 2 on 05/20/2023 by Favio Gasca MD at [facility] Metallic Hardware/Anc hor Left: Hip [employer] 02/24/2028 6937-0931 / / [id number] Trident Ii Tritanium Clusterhole 52e - [id number] Implanted:Qty: 1 on 05/20/2023 by Favio Gasca MD at [facility] Total Joint Component/In sert Left: Hip [employer] 03/30/2028 702-04-52 E / / [id number] Insert Actb 10deg 36mm 0d E Hip X3 Trdnt Strl Lf - [id number] Implanted:Qty: 1 on 05/20/2023 by Favio Gasca MD at [facility] Total Joint Component/In sert Left: Hip [employer] 02/14/2028 723-10-36 E / / [id number] Insignia Hip Stem, Standard Offset, Size 6, 35mm X 107mm Implanted:Qty: 1 on 05/20/2023 by Favio Gasca MD at [facility] Total Joint Component/In sert Left: Hip [employer] 09/16/2027 3458-1234 / / [id number] Imp Head Femoral Strk Biolox Delta Ceramic V40 36mm - [id number] Implanted:Qty: 1 on 05/20/2023 by Favio Gasca MD at [facility] Total Joint Component/In sert Left: Hip [employer] 12/31/2027 6570-0-43 6 / / [id number] Procedures Procedure Name Priority Date/Time Associated Diagnosis Comments GLUCOSE Routine 05/21/2023 6:51 AM PIGEON FANCIER from Last 3 Months or Most Recently Relevant to Health Maintenance Results * (ABNORMAL) Glucose (05/21/2023 6:51 AM PIGEON FANCIER) Glucose 103(H) 70 - 99 mg/dL 05/21/2023 7:14 AM PIGEON FANCIER [facility] Patient Fasting > 8hrs? Yes 05/21/2023 7:14 AM PIGEON FANCIER [facility] Blood STRUCTURE OF RIGHT UPPER LIMB / Unknown Venipuncture / Unknown 05/21/2023 6:51 AM PIGEON FANCIER 05/21/2023 6:54 AM PIGEON FANCIER Favio Gasca MD LAB - BLOOD KANWAL RAMIREZ [facility] [address] Lab (1st floor, no room number) [place] [address], [facility] [phone] from Last 3 Months or Most Recently Relevant to Health Maintenance Additional Health Concerns Active Problems Noted Date Diagnosed Date Total Joint Replacement Hip Pathway 05/10/2023 Advance Directives For more information, please contact: [phone] * Full Code (Latest Code Status on File) Date Activated Date Inactivated Comments 05/20/2023 2:50 PM 05/21/2023 3:41 PM All basic and advanced life-sustaining interventions are performed as appropriate Question Answer Comments Code status determined by: Unable to dis cuss and no AD/POLST on file; continue PREVIOUSLY ORDERED code status Care Teams Spanner Operator Relationship Specialty Start Date End Date Rae Dorantes MD [facility] [address] [place] [address] PCP - General Internal Medicine 04/26/23
--- OUTSIDE RECORDS SUMMARY | 2023-11-26 08:39 | XMS_ITS | Clinical Summary ---
Author Organization [facility] Address [place], [place] [address] Care Team Providers Care Reinsurance Analyst Name Role Phone Pcp, No Primary Care [...] Comments Blood Pressure 135/84 07/14/2011 1:13 PM SUPERVISOR AIR CONDITIONING INSTALLER Pulse 93 07/14/2011 1:13 PM SUPERVISOR AIR CONDITIONING INSTALLER Temperature 36.3 ??C (97.4 ??F) 07/14/2011 1:13 PM CS T Respiratory Rate - - Oxygen Saturation 95% 10/05/2006 10: 45 AM CDT Inhaled Oxygen Concentration - - Weight 122.3 kg (269 lb 9.6 oz) 07/14/2011 1:13 PM SUPERVISOR AIR CONDITIONING INSTALLER Height - - Body Mass Index - - Plan of Treatment Health Maintenance Due Date Last Done Comments Tdap 09/05/1975 Depression screening for age 12+ [...] 03/06/2018 03/06/2008 (Comp leted outside of [facility]) COVID-19 vaccine series (2022-24 season) 2023 Influenza for age 50-64 01/30/2024 Pneumococcal series for age 6-64 Aged Out No longer eligible based on patient's age to complete this topic Care Teams Reinsurance Analyst Relationship Specialty Start Date End Date Pcp, No . PCP - General 02/09/12
--- OUTSIDE RECORDS SUMMARY | 2023-11-26 08:39 | XMS_ITS | Referral Summary ---
Author Organization [facility] Address [address] [place] [address] Care Team Providers Care Inside Sales Person Name Role Phone Rae Dorantes MD Primary Care Provider Encounters Date Type Department Care Team Description 11/22/2023 Travel from Last 3 Months Allergies Active [...] capsule by mouth 2 times daily Active samvvkw-dimdufw-geq hyl elizabeth 4-10-30 % CREA Apply topically [...] Sex Assigned at Female 05/01/2023 11:03 AM NUCLEAR WEAPONS SPECIALIST Gender Identity Female 05/01/2023 11:03 AM NUCLEAR WEAPONS SPECIALIST Sexual Orientation Not on file Last Filed Vital Signs Vital Sign Reading Time Taken Comments Blood Pressure 116/52 05/21/2023 1:00 PM NUCLEAR WEAPONS SPECIALIST Pulse 82 05/21/2023 1:00 PM NUCLEAR WEAPONS SPECIALIST Temperature 36.8 ??C (98.2 ??F) 05/21/2023 1:00 PM CS T Respiratory Rate 16 05/21/2023 1:00 PM NUCLEAR WEAPONS SPECIALIST Oxygen Saturation 98% 05/21/2023 1:00 PM NUCLEAR WEAPONS SPECIALIST Inhaled Oxygen Concentration - - Weight 102.1 kg (225 lb) 11/22/2023 12:00 PM CDT Height 170.2 cm (5' 7) 11/22/2023 12:00 PM CDT Body Mass Index 35.24 11/22/2023 12:00 PM CDT Plan of Treatment Upcoming Encounters Date Type Department Care Team (Latest Contact Info) Description 12/09/2023 8:45 AM CDT [facility] [address] [place] [address] Favio Gasca MD [facility] [address] [address] 12/09/2023 8:45 AM CDT - 12/09/2023 11:10 AM CDT Surgery [facility] [address] [place] [address] Favio Gasca MD [facility] [address] [address] Right total hip arthroplasty Scheduled Procedures Name Priority Associated Diagnoses Date/Ti me ARTHROPLASTY, HIP, TOTAL Primary osteoarthritis of right hip 12/09/2023 8:45 AM CDT Goals Goal Patient Goal Type Associated Problems Recent Progress Patient-Stated? Author Total Joint Replacement Hip Pathway Care Plan Total Joint Replacement Hip Pathway No Felipe Gaines, RN Medical Devices Implanted Type Area Hand Upper And Bottom Lacer Device Identifier Shelf Expiration Date Model / Serial / Lot Imp Scr Strk Low Profile Hex 6.5x30mm [id number] - [id number] Implanted:Qty: 2 on 05/20/2023 by Favio Gasca MD at [facility] Metallic Hardware/Anc hor Left: Hip [employer] 02/24/2028 2177-9086 / / [id number] Trident Ii Tritanium Clusterhole 52e - [id number] Implanted:Qty: 1 on 05/20/2023 by Favio Gasca MD at [facility] Total Joint Component/In sert Left: Hip [employer] 03/30/2028 702-04-52 E / / [id number] Insert Actb 10deg 36mm 0d E Hip X3 Trdnt Strl Lf - [id number] Implanted:Qty: 1 on 05/20/2023 by Favio Gasca MD at [facility] Total Joint Component/In sert Left: Hip [employer] 02/14/2028 723-10-36 E / / [id number] Insignia Hip Stem, Standard Offset, Size 6, 35mm X 107mm Implanted:Qty: 1 on 05/20/2023 by Favio Gasca MD at [facility] Total Joint Component/In sert Left: Hip [employer] 09/16/2027 6668-8959 / / [id number] Imp Head Femoral Strk Biolox Delta Ceramic V40 36mm - [id number] Implanted:Qty: 1 on 05/20/2023 by Favio Gasca MD at [facility] Total Joint Component/In sert Left: Hip [employer] 12/31/2027 6570-0-43 6 / / [id number] Procedures Procedure Name Priority Date/Time Associated Diagnosis Comments GLUCOSE Routine 05/21/2023 6:51 AM NUCLEAR WEAPONS SPECIALIST from Last 3 Months or Most Recently Relevant to Health Maintenance Results * (ABNORMAL) Glucose (05/21/2023 6:51 AM NUCLEAR WEAPONS SPECIALIST) Glucose 103(H) 70 - 99 mg/dL 05/21/2023 7:14 AM NUCLEAR WEAPONS SPECIALIST [facility] Patient Fasting > 8hrs? Yes 05/21/2023 7:14 AM NUCLEAR WEAPONS SPECIALIST [facility] Blood STRUCTURE OF RIGHT UPPER LIMB / Unknown Venipuncture / Unknown 05/21/2023 6:51 AM NUCLEAR WEAPONS SPECIALIST 05/21/2023 6:54 AM NUCLEAR WEAPONS SPECIALIST Favio Gasca MD LAB - BLOOD [facility] Acute Care Lab [address] Lab (1st floor, no room number) [place] [address], [facility] [phone] from Last 3 Months or Most Recently Relevant to Health Maintenance Additional Health Concerns Active Problems Noted Date Diagnosed Date Total Joint Replacement Hip Pathway 05/10/2023 Advance Directives For more information, please contact: [phone] * Full Code (Latest Code Status on File) Date Activated Date Inactivated Comments 05/20/2023 2:50 PM 05/21/2023 3:41 PM All basic and advanced life-sustaining interventions are performed as appropriate Question Answer Comments Code status determined by: Unable to dis cuss and no AD/POLST on file; continue PREVIOUSLY ORDERED code status Care Teams Inside Sales Person Relationship Specialty Start Date End Date Rae Dorantes MD [facility] [address] [place] [address] PCP - General Internal Medicine 04/26/23
== END 2023-11-23 14:35 | disposition home or self-care (01) ==
LOC: NFLDREF 11-26 08:37
PROVIDERS: PCP Internal Medicine; Referring Provider Internal Medicine; Visit Provider Internal Medicine
DX: E03.9 Hypothyroidism, unspecified (principal)
CPT/HCPCS: 84439; 84443

== ENCOUNTER 2023-11-25 14:24 | Outpatient (CLI) | payer OTHER, SELFPAY | END 2023-11-25 14:25 | disposition home or self-care (01) | LOC: NFLDREF 14:33 | PROVIDERS: PCP Internal Medicine; Visit Provider Internal Medicine | DX: Z01.818 Encounter for other preprocedural examination (principal) | CPT/HCPCS: 80053 ==

== ENCOUNTER 2024-03-01 09:15 | Outpatient (CLI) | payer OTHER, SELFPAY ==
--- OUTSIDE RECORDS SUMMARY | 2024-03-02 08:41 | XMS_ITS | Referral Summary ---
Author Organization [facility] Address [address] [place] [address] Care Team Providers Care Strategy Director Name Role Phone Rae Dorantes MD Primary Care Provider Encounters Date Type Department Care Team Description 12/09/2023 5:19 AM CDT - 12/10/2023 12:30 PM CDT Hospital Encounter [facility] [address] [place] [address] Favio Gasca MD S/P total left hip arthroplasty (Primary Dx); S/P total right hip arthroplasty Discharge Disposition: Home or Self Care 12/09/2023 7:22 AM CDT Anesthesia Event [facility] [address] [place] [address] Chet Graves MD 12/09/2023 7:30 AM CDT - 12/09/2023 9:[address] [facility] [address] [place] [address] Favio Gasca MD Right total hip arthroplasty from Last 3 Months Allergies Active Allergy Reactions Criticality Noted Date Comments Cetirizine Swelling 10/05/2006 Medications Medication Sig Dispensed Refills Start Date End Date Status levothyroxine (SYNTHROID/LEVOTHROI D) 150 MCG tablet Take 150 mcg by mouth daily Active tirzepatide (MOUNJARO) 2.5 MG/0.5ML pen Inject 2.5 mg Subcutaneous every 7 days Active valsartan-hydrochlor othiazide (DIOVAN HCT) 160-12.5 MG tablet Take 1 tablet by mouth daily Active simvastatin (ZOCOR) 10 MG tablet Take 10 mg by mouth at bedtime Active Multiple Vitamins-Minerals (MULTIVITAMIN ADULTS 50+ PO) Take 1 tablet by mouth daily Active Turmeric 400 MG CAPS Take 1 capsule by mouth 2 times daily Active ermpohr-oyavpxg-uzhi yl elizabeth 4-10-30 % CREA Apply topically daily as needed Active albuterol (PROAIR HFA/PROVENTIL HFA/VENTOLIN HFA) 108 (90 Base) MCG/ACT inhaler Inhale 2 puffs into the lungs every 6 hours as needed for shortness of breath, wheezing or cough Active polyethylene glycol (MIRALAX) 17 g packetIndications:Pr imary osteoarthritis of left hip Take 17 g by mouth daily 7 packet 05/20/2023 Active blood glucose monitoring (SOFTCLIX) lancets TEST 1 TIME DAILY 12/23/2022 Active ACCU-CHEK GUIDE test strip daily 12/24/2022 Active senna-docusate (SENOKOT-S/PERICOLAC E) 8.6-50 MG tabletIndications:S/ P total right hip arthroplasty Take 1-2 tablets by mouth 2 times daily Take while on oral narcotics to prevent or treat constipation. 30 tablet 12/09/2023 Active polyethylene glycol (MIRALAX) 17 g packetIndications:S/ P total right hip arthroplasty Take 17 g by mouth daily 7 packet 12/09/2023 Active acetaminophen (TYLENOL) 325 MG tabletIndications:S/ P total right hip arthroplasty Take 2 tablets (650 mg) by mouth every 4 hours as needed for other (mild pain) 100 tablet 12/09/2023 Active aspirin 81 MG EC tabletIndications:S/ P total right hip arthroplasty Take 1 tablet (81 mg) by mouth 2 times daily 90 tablet 12/09/2023 Active celecoxib (CELEBREX) 200 MG capsuleIndications:S /P total right hip arthroplasty Take 1 capsule (200 mg) by mouth 2 times daily for 30 days Do not take within 6 hours of ibuprofen (MOTRIN, ADVIL) or ketorolac (TORADOL) if prescribed. 60 capsule 12/09/2023 Active oxyCODONE (ROXICODONE) 5 MG tabletIndications:S/ P total right hip arthroplasty Take 1-2 tablets (5-10 mg) by mouth every 4 hours as needed for moderate to severe pain 30 tablet 12/09/2023 Active omeprazole (PRILOSEC) [address] capsuleIndications:S /P total right hip arthroplasty Take 1 capsule (20 mg) by mouth daily 30 capsule 12/09/2023 Active methocarbamol (ROBAXIN) 500 MG tabletIndications:S/ P total right hip arthroplasty Take 1 tablet (500 mg) by mouth 4 times daily as needed for muscle spasms 30 tablet 12/09/2023 Active Active Problems Problem Noted Date Diagnosed Date S/P total right hip arthroplasty 12/09/2023 S/P total left hip arthroplasty 05/20/2023 Social [...] Sex Assigned at Female 05/01/2023 11:03 AM ROLLER CHECKER Gender Identity Female 05/01/2023 11:03 AM ROLLER CHECKER Sexual Orientation Not on file Last Filed Vital Signs Vital Sign Reading Time Taken Comments Blood Pressure 101/52 12/10/2023 11:44 AM CDT Pulse 80 12/10/2023 11:44 AM CDT Temperature 37.2 ??C (99 ??F) 12/10/2023 9:00 AM CDT Respiratory Rate 16 12/10/2023 4:34 AM CDT Oxygen Saturation 100% 12/10/2023 5:32 AM CDT Inhaled Oxygen Concentration - - Weight 103.6 kg (228 lb 4.8 oz) 12/09/2023 5:31 AM CDT Height 170.2 cm (5' 7.01) 12/09/2023 5:31 AM CD T Body Mass Index 35.75 12/09/2023 5:31 AM CDT Plan of Treatment Not on file Goals Goal Patient Goal Type Associated Problems Recent Progress Patient-Stated? Author Total Joint Replacement Hip Pathway Care Plan Total Joint Replacement Hip Pathway No Felipe Gaines, MARTHA Medical Devices Implanted Type Area Machinist Supervisor Device Identifier Shelf Expiration Date Model / Serial / Lot Imp Scr Strk Low Profile Hex 6.5x30mm [id number] - [id number] Implanted:Qty: 2 on 05/20/2023 by Favio Gasca MD at [facility] Metallic Hardware/An chor Left: Hip [employer] 02/24/2028 7030-653 0 / / [id number] 6.5mm Low Profile Hex Scr 20mm - [id number] Implanted:Qty: 1 on 12/09/2023 by Favio Gasca MD at [facility] Metallic Hardware/An chor Right: Hip [employer] [id number] 07/25/2028 7030-652 0 / / HDVH Imp Scr Strk Low Profile Hex 6.5x30mm 2228-0887 - [id number] Implanted:Qty: 1 on 12/09/2023 by Favio Gasca MD at [facility] Metallic Hardware/An chor Right: Hip [employer] [id number] 09/11/2028 7030-653 0 / / HY4 Trident Ii Tritanium Clusterhole 52e - [id number] Implanted:Qty: 1 on 05/20/2023 by Favio Gasca MD at [facility] Total Joint Component/I nsert Left: Hip [employer] 03/30/2028 702-04-5 2E / / [id number] A Insert Actb 10deg 36mm 0d E Hip X3 Trdnt Strl Lf - [id number] Implanted:Qty: 1 on 05/20/2023 by Favio Gasca MD at [facility] Total Joint Component/I nsert Left: Hip [employer] 02/14/2028 723-10-3 6E / / [id number] Insignia Hip Stem, Standard Offset, Size 6, 35mm X 107mm Implanted:Qty: 1 on 05/20/2023 by Favio Gasca MD at [facility] Total Joint Component/I nsert Left: Hip [employer] 09/16/2027 7000-550 6 / / [id number] Imp Head Femoral Strk Biolox Delta Ceramic V40 36mm - [id number] Implanted:Qty: 1 on 05/20/2023 by Favio Gasca MD at [facility] Total Joint Component/I nsert Left: Hip [employer] 12/31/2027 6570-0-4 36 / / [id number] Trident Ii Tritanium Clusterhole 52e - [id number] Implanted:Qty: 1 on 12/09/2023 by Favio Gasca MD at [facility] Total Joint Component/I nsert Right: Hip [employer] [id number] 10/20/2028 702-04-5 2E / / [id number] A Insert Actb 10deg 36mm 0d E Hip X3 Trdnt Strl Lf - [id number] Implanted:Qty: 1 on 12/09/2023 by Favio Gasca MD at [facility] Total Joint Component/I nsert Right: Hip [employer] [id number] 08/28/2028 723-10-3 6E / / [id number] Imp Head Femoral Strk Biolox Delta Ceramic 36mm +0mm - [id number] Implanted:Qty: 1 on 12/09/2023 by Favio Gasca MD at [facility] Total Joint Component/I nsert Right: Hip [employer] [id number] 01/14/2028 6570-0-1 36 / / [id number] Stem Fem 105mm 11mm Insg 5 40 Std Ofst 35mm Hip - [id number] Implanted:Qty: 1 on 12/09/2023 by Favio Gasca MD at [facility] Total Joint Component/I nsert Right: Hip [employer] [id number] 07/25/2028 7000-550 5 / / [id number] Procedures Procedure Name Priority Date/Time Associated Diagnosis Comments BASIC METABOLIC PANEL Routine 12/10/2023 6:18 AM CDT HEMOGLOBIN Routine 12/10/2023 6:18 AM CDT GLUCOSE BY METER Routine 12/10/2023 6:07 AM CDT GLUCOSE BY METER Routine 12/09/2023 9:27 AM CDT XR PELVIS AD HIP PORTABLE RIGHT 1 VIEW STAT 12/09/2023 9:26 AM CDT ANE SPINAL BLOCK FORM Routine 12/09/2023 7:43 AM CDT ARTHROPLASTY, HIP, TOTAL 12/09/2023 7:26 AM CDT Primary osteoarthritis of right hip Special Needs Pt is a diabeticMB-yesPt would like same pre op nurse, OR team if appropriateRachel (pre op nurse)Karuna CAM and Dr Candace HOLLY GLUCOSE BY METER Routine 12/09/2023 7:22 AM CDT from Last 3 Months Results * (ABNORMAL) Hemoglobin (12/10/2023 6:18 AM CDT) Hemoglobin 9.2(L) 11.7 - 15.7 g/dL 12/10/2023 6:27 AM CDT LABORATORY Blood TOPOGRAPHY UNKNOWN / Unknown Venipuncture / Unknown 12/10/2023 6:18 AM CDT 12/10/2023 6:24 AM CDT Mimi Richardson PA-C LAB - BLOOD ORDERABL ES LABORATORY [facility] [address] [facility] Lab (1st floor, no room number) [place] [address], [facility] * (ABNORMAL) Basic metabolic panel (12/10/2023 6:18 AM CDT) Sodium 138 135 - 145 mmol/L 12/10/2023 6:53 AM CDT LABORATORY Potassium 3.6 3.4 - 5.3 mmol/L 12/10/2023 6:53 AM CDT LABORATORY Chloride 107 98 - 107 mmol/L 12/10/2023 6:53 AM CDT RH LABORATORY Carbon Dioxide (CO2) 23 22 - 29 mmol/L 12/10/2023 6:53 AM CDT [facility] LABORATORY Anion Gap 8 7 - 15 mmol/L 12/10/2023 6:53 AM CDT [facility] LABORATORY Urea Nitrogen 14.2 8.0 - 23.0 mg/dL 12/10/2023 6:53 AM CDT LABORATORY Creatinine 1.01(H) 0.51 - 0.95 mg/dL 12/10/2023 6:53 AM CDT [facility] LABORATORY GFR Estimate 64 >60 mL/min/1.7 3m2 12/10/2023 6:53 AM CDT [facility] LABORATORY Comment:eGFR calculated us2020 CKD-EPI equation. Calcium 8.8 8.6 - 10.0 mg/dL 12/10/2023 6:53 AM CDT LABORATORY Glucose 96 70 - 99 mg/dL 12/10/2023 6:53 AM CDT LABORATORY Blood TOPOGRAPHY UNKNOWN / Unknown Venipuncture / Unknown 12/10/2023 6:18 AM CDT 12/10/2023 6:24 AM CDT Sumi Styles PA-C LAB - BLOOD ORDERABL ES [facility] Lab [address] Lab (1st floor, no room number) [place] [address] * Glucose by meter (12/10/2023 6:07 AM CDT) Only the most recent of3 resultswithin the time period is included. [facility] Signature GLUCOSE BY METER POCT 79 70 - 99 mg/dL 12/10/2023 6:26 AM CDT LABORATORY POC Blood, Capillary BLOOD SPECIMEN / Unknown 12/10/2023 6:07 AM CDT 12/10/2023 6:26 AM CDT Favio Gasca MD LAB - BEAKER POC T LABORATORY [facility] Lab [address] Lab (1st floor, no room number) [place] [address] * XR Pelvis w Hip Port Right 1 View (12/09/2023 9:26 AM CDT) Anatomical Region Laterality Modality Abdomen/Pelvis Right Digital Radiogra phy Impressions 12/09/2023 9:30 AM CDT IMPRESSION: Status post recent right total hip arthroplasty. No immediate hardware complication. Expected postsurgical soft tissue edema and subcutaneous emphysema. No acute fracture or malalignment. Osteopenia. Prior left total hip arthroplasty. CHICO GUTHRIE MD SYSTEM ID: ??[id number] Narrative 12/09/2023 9:30 AM CDT XR PELVIS AND HIP PORTABLE RIGHT 1 VIEW ??12/09/2023 9:26 AM HISTORY: Status post Hip surgery COMPARISON: 05/20/2023 Procedure Note Chico Guthrie MD - 12/09/2023 XR PELVIS AND HIP PORTABLE RIGHT 1 VIEW 12/09/2023 9:26 AM HISTORY: Status post Hip surgery COMPARISON: 05/20/2023 IMPRESSION: Status post recent right total hip arthroplasty. No immediate hardware complication. Expected postsurgical soft tissue edema and subcutaneous emphysema. No acute fracture or malalignment. Osteopenia. Prior left total hip arthroplasty. CHICO GUTHRIE MD SYSTEM ID: [id number] Mimi JUAREZ-C IMG DIAGNOSTIC IMAGI NG ORDERABLES * Spinal Block (12/09/2023 7:43 AM CDT) Narrative Chet Graves MD - 12/09/2023 7:43 AM CDT Chet Graves MD ? 12/09/2023 ??7:45 AM Intrathecal injection Procedure Note Pre-Procedure Staff - ? Anesthesiologist: ??Chet Graves MD ? Performed By: anesthesiologist ? Location: OR ? Pre-Anesthestic Checklist: patient identified, IV checked, risks and benefits discussed, informed consent, monitors and equipment checked and pre-op evaluation Timeout: ? Correct Patient: Yes ? Correct Procedure: Yes ? Correct Site: Yes ? Correct Position: Yes Procedure Documentation Procedure: intrathecal injection ? Patient Position: sitting ? Patient Prep/Sterile Barriers: sterile gloves, mask ? Skin prep: Betadine ? Insertion Site: L3-4. (left paramedian approach). ? Needle Gauge: 22. ? Needle Length (Inches): 3.5 ? Spinal Needle Type: Daniela tipNo introducer used ? # of attempts: 2 and ??# of redirects: ??3 Assessment/Narrative ? Paresthesias: No. ? CSF fluid: clear. ? Opening pressure was cmH2O while ??Sitting. Medication(s) Administered 0.75% Hyperbaric Bupivacaine (Intrathecal) - Intrathecal 1.6 mL - 12/09/2023 7:38:00 AM Comments: ??Pencan with added 22 ga Daniela, lot [id number], exp. 2025-10-28 FOR [facility] ([facility]) ONLY: ?? Pain Team Contact information: please page the Pain Team Via [employer]. Search Pain. During daytime hours, please page the attending first. At night please page the resident first. Chet Graves MD [place] ANESTHESIA from Last 3 Months Additional Health Concerns Active Problems Noted Date Diagnosed Date Total Joint Replacement Hip Pathway 05/10/2023 Advance Directives For more information, please contact: [phone] * Full Code (Latest Code Status on File) Date Activated Date Inactivated Comments 12/09/2023 12:54 PM 12/10/2023 2:49 PM All basic a nd advanced life-sustaining interventions are performed as appropriate Question Answer Comments Code status determined by: Unable to dis cuss and no AD/POLST on file; continue PREVIOUSLY ORDERED code status * Full Code Date Activated Date Inactivated Comments 05/20/2023 2:50 PM 05/21/2023 3:41 PM All basic and advanced life-sustaining interventions are performed as appropriate Question Answer Comments Code status determined by: Unable to dis cuss and no AD/POLST on file; continue PREVIOUSLY ORDERED code status Care Teams Strategy Director Relationship Specialty Start Date [place] [address] PCP - General Internal Medicine 04/26/23
--- OUTSIDE RECORDS SUMMARY | 2024-03-02 08:41 | XMS_ITS | Clinical Summary ---
Author Organization [facility] Address [address] [place] [address] Care Team Providers Care Die Welder Name Role Phone Rae Dorantes MD Primary [...] capsule by mouth 2 times daily Active ykimlhf-pcejvgq-beae yl elizabeth 4-10-30 % CREA Apply topically [...] 12/09/2023 S/P total left hip arthroplasty 05/20/2023 Encounters Date Type Department Care Team Description 12/09/2023 7:30 AM CDT - 12/09/2023 9:55 AM CDT [facility] Services [address] [place] [phone] Favio Gasca MD Right total hip arthroplasty 12/09/2023 7:22 AM CDT Anesthesia Event [facility] [address] [place] [address] Chet Graves MD 12/09/2023 5:19 AM CDT - 12/10/2023 12:30 PM CDT Hospital Encounter [facility] [address] [place] [address] Favio Gasca MD S/P total left hip arthroplasty (Primary Dx); S/P total right hip arthroplasty Discharge Disposition: Home or Self Care from Last 3 Months Social History Tobacco [...] Sex Assigned at Female 05/01/2023 11:03 AM BODY FORMER Gender Identity Female 05/01/2023 11:03 AM BODY FORMER Sexual Orientation Not on file Last Filed [...] 12/09/2023 5:31 AM CDT Plan of Treatment Health Maintenance Due Date [...] 2014 PHQ-2 (once per calendar year) 2023 COVID-19 Vaccine ( season) 2024 04/27/2023, 12/23/2021, 03/11/2021, Additional history exists INFLUENZA VACCINE (#1) 2024 , 03/04/2021, 03/03/2019, Additional history exists GLUCOSE 12/09/2026 12/10/2023, 11/28, 12/09/2023, Additional history exists DTAP/TDAP/TD IMMUNIZATION (3 - Td or Tdap) 04/04/2028 04/04/2018, 03/06/2008 RSV VACCINE (1 - 1-dose 75+ series) 09/05/2039 HPV IMMUNIZATION Aged Out No longer e [...] Gaines, RN Medical Devices Implanted Type Area Solid Center Winder Device Identifier Shelf Expiration Date Model / Serial / Lot Imp Scr Strk Low Profile Hex 6.5x30mm [id number] - [id number] Implanted:Qty: 2 on 05/20/2023 by Favio Gasca MD at [facility] Metallic Hardware/An chor Left: Hip [employer] 02/24/2028 7030-653 0 / / [id number] 6.5mm Low Profile Hex Scr 20mm - [id number] Implanted:Qty: 1 on 12/09/2023 by Favio Gasca MD at [facility] Metallic Hardware/An chor Right: Hip [employer] [id number] 07/25/2028 7030-652 0 / / HDVH Imp Scr Strk Low Profile Hex 6.5x30mm 5875-1702 - [id number] Implanted:Qty: 1 on 12/09/2023 by Favio Gasca MD at [facility] Metallic Hardware/An chor Right: Hip [employer] [id number] 09/11/2028 7030-653 0 / / HY4 Trident Ii Tritanium Clusterhole 52e - [id number] Implanted:Qty: 1 on 05/20/2023 by Favio Gasca MD at [facility] Total Joint Component/I nsert Left: Hip [employer] 03/30/2028 702-04-5 2E / / [id number] Insert Actb 10deg 36mm 0d E Hip X3 Trdnt Strl Lf - [id number] Implanted:Qty: 1 on 05/20/2023 by Favio Gasca MD at [facility] Total Joint Component/I nsert Left: Hip [employer] 02/14/2028 723-10-3 6E / / [id number] Insignia Hip Stem, Standard Offset, Size 6, 35mm X 107mm Implanted:Qty: 1 on 05/20/2023 by Favio Gasca MD at [facility] Total Joint Component/I nsert Left: Hip [employer] 09/16/2027 7000-550 6 / / [id number] Imp Head Femoral Strk Biolox Delta Ceramic V40 36mm - [id number] Implanted:Qty: 1 on 05/20/2023 by Favio Gasca MD at [facility] Total Joint Component/I nsert Left: Hip [employer] 12/31/2027 6570-0-4 36 / / [id number] Trident Ii Tritanium Clusterhole 52e - [id number] Implanted:Qty: 1 on 12/09/2023 by Favio Gasca MD at [facility] Total Joint Component/I nsert Right: Hip [employer] [id number] 10/20/2028 702-04-5 2E / / [id number] A Insert Actb 10deg 36mm 0d E Hip X3 Trdnt Strl Lf - [id number] Implanted:Qty: 1 on 12/09/2023 by Favio Gasca MD at [facility] Total Joint Component/I nsert Right: Hip [employer] [id number] 08/28/2028 723-10-3 6E / / [id number] Imp Head Femoral Strk Biolox Delta Ceramic 36mm +0mm - [id number] Implanted:Qty: 1 on 12/09/2023 by Favio Gasca MD at [facility] Total Joint Component/I nsert Right: Hip [employer] [id number] 01/14/2028 6570-0-1 36 / / [id number] Stem Fem 105mm 11mm Insg 5 40 Std Ofst 35mm Hip - [id number] Implanted:Qty: 1 on 12/09/2023 by Favio Gasca MD at [facility] Total Joint Component/I nsert Right: Hip [employer] [id number] 07/25/2028 7000-550 5 / / [id number] Procedures Procedure Name Priority Date/Time Associated Diagnosis [...] appropriateRachel (pre op nurse)Karuna CAM and Dr Maria MDA GLUCOSE BY METER Routine 12/09/2023 7:22 AM CDT from Last 3 Months Results * (ABNORMAL) Hemoglobin (12/10/2023 6:18 AM CDT) [facility] Hemoglobin 9.2(L) 11.7 - 15.7 g/dL 12/10/2023 6:27 AM CDT LABORATORY Blood TOPOGRAPHY UNKNOWN / Unknown Venipuncture / Unknown 12/10/2023 6:18 AM CDT 12/10/2023 6:24 AM CDT Mimi Richardson PA-C LAB - BLOOD ORDERABL ES LABORATORY [facility] Acute [facility] Lab [address] [facility] Lab (1st floor, no room number) [place] [address], [facility] * (ABNORMAL) Basic metabolic panel (12/10/2023 6:18 AM CDT) Pathologist [facility] Sodium 138 135 - 145 mmol/L 12/10/2023 6:53 AM CDT LABORATORY Potassium 3.6 3.4 - 5.3 mmol/L 12/10/2023 6:53 AM CDT LABORATORY Chloride 107 98 - 107 mmol/L 12/10/2023 6:53 AM CDT LABORATORY Carbon Dioxide (CO2) 23 22 - 29 mmol/L 12/10/2023 6:53 AM CDT LABORATORY Anion Gap 8 7 - 15 mmol/L 12/10/2023 6:53 AM CDT LABORATORY Urea Nitrogen 14.2 8.0 - 23.0 mg/dL 12/10/2023 6:53 AM CDT RH LABORATORY Creatinine 1.01(H) 0.51 - 0.95 mg/dL 12/10/2023 6:53 AM CDT RH LABORATORY GFR Estimate 64 >60 mL/min/1.7 3m2 12/10/2023 6:53 AM CDT RH LABORATORY Comment:eGFR calculated usin 2020 CKD-EPI equation. Calcium 8.8 8.6 - 10.0 mg/dL 12/10/2023 6:53 AM CDT RH LABORATORY Glucose 96 70 - 99 mg/dL 12/10/2023 6:53 AM CDT RH LABORATORY Blood TOPOGRAPHY UNKNOWN / Unknown Venipuncture / Unknown 12/10/2023 6:18 AM CDT 12/10/2023 6:24 AM CDT Sumi Styles PA-C LAB - BLOOD ORDERABL ES LABORATORY [facility] [address] Lab (1st floor, no room number) [place] [phone] [place] [address] * Glucose by meter (12/10/2023 6:07 AM CDT) Only the most recent of3 resultswithin the time period is included. [facility] Signature GLUCOSE BY METER POCT 79 70 - 99 mg/dL 12/10/2023 6:26 AM CDT LABORATORY POC Blood, Capillary BLOOD SPECIMEN / Unknown 12/10/2023 6:07 AM CDT 12/10/2023 6:26 AM CDT Favio Gasca MD LAB - BEAKER POC T LABORATORY POC [facility] [address] Lab (1st floor, no room number) [place] [phone] * XR Pelvis w Hip [...] hip arthroplasty. CHICO GUTHRIE MD SYSTEM ID: ??[id number] Narrative 12/09/2023 9:30 AM CDT XR PELVIS [...] hip arthroplasty. CHICO GUTHRIE MD SYSTEM ID: [id number] Mimi Richardson PA-C IMG DIAGNOSTIC IMAGI NG [...] ??Pencan with added 22 ga Daniela, lot [id number], exp. 2025-10-28 FOR [facility] ([facility]) ONLY: ?? Pain Team Contact information: please page the Pain Team Via [employer]. Search Pain. During daytime hours, please page the attending first. At night please page the resident first. Chet Graves MD [place] ANESTHESIA from Last 3 Months Additional Health Concerns Active Problems Noted Date Diagnosed Date Total Joint Replacement Hip Pathway 05/10/2023 Advance Directives For more information, please contact: [phone] * Full Code (Latest Code Status on [...] continue PREVIOUSLY ORDERED code status Care Teams Die Welder Relationship Specialty Start Date [place] [address] PCP - General Internal Medicine 04/26/23
--- OUTSIDE RECORDS SUMMARY | 2024-03-02 08:42 | XMS_ITS | Encounter Summary ---
Author Organization [facility] Address [address] [place] [id number] Care Team Providers Care [employer] Name Role Phone Rae Dorantes MD Primary Care Provider Reason for Visit * Auth/Cert Specialty Diagnoses / Procedures Referred By Contelida t Referred To Contact Surgery Diagnoses Primary osteoarthritis of right hip Primary osteoarthritis of right hip [M16.11] Procedures [place] TOTAL HIP ARTHROPLASTY Right total hip arthroplasty Periop Services [address] [place] [address] Referral ID Status Reason Start Date Expiration Date Visits Re quested Visits Authorized [id number] 1 1 Encounter Details Date Type Department Care Team (Late st Contact Info) Description 12/09/2023 7:22 AM CDT Anesthesia Event [facility]Op [facility] [address] [place] [phone] Chet Graves MD [facility] ANESTHESIA [address] [place] [address] Anesthesia Record Procedure Summary Procedure Name Responsible Anesthesiologist Anesthesia Start Time Anesthesia Stop Time Right total hip arthroplasty (Right: Hip) Chet Graves MD 12/09/2372112/09/23 0901 Events Date Time Event Comment 12/09/2023721 An Start Anesthesia Star t is defined as when the anesthesia provider assumed care, began anesthesia prep, remained continuously present with the patient, and excludes all time for performing the pre-anesthesia evaluation. The Pre-Anesthesia Evaluation was completed before Anesthesia Start. 721 Quick Note LAV CREWMAN with patie nt in preop. Questions answered and cares explained before coming to OR. 07 An Start Data 07 MD Present 07 AN REASSESS I attest that I have identified and re-evaluated the patient immediately before the induction of anesthesia and I am satisfied that the anesthetic plan is suitable for the patient's condition and procedure. The first vital signs recorded are pre- induction. Jh Wood APRN LAV CREWMAN 0732 Present 0738 An Induction 0738 MD Present 075 Anesthesia Ready for Procedu re 0752 Timeout 0754 AN INCISION 08 MD Present 0852 an stop data 0854 Present 09 An Stop Electronically signed by Jh Wood APRN CRNA on December 09, 2023 9:01 AM 0901 MD Present Meds Name Total midazolam 1 mg/mL 2 mg propofol drip mcg/kg/min 351.72 mg ePHEDrine 5 mg/mL in NS 15 mg phenylephrine (JUANITA-SYNEPHRINE) injection 450 mcg ceFAZolin Sodium (ANCEF) injection 2 g 2 g tranexamic acid 1 g in 100 mL NS IV bag (premix) 1 g tranexamic acid 1 g in 100 mL NS IV bag (premix) 1 g 0.75% Hyperbaric Bupivacaine (Intratheca l) 1.6 mL phenylephrine 0.1 mg/mL infusion (mcg/kg /min) 0.91 mg lactated ringers infusion 1,000 mL * Agents Name O2 N2O Air Exp Sevoflurane Exp Isoflurane Exp Desflurane O2 Delivery Device Ins Sevoflurane Ins Isoflurane Ins Desflurane * Blood No blood administrations on file. 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 status CV/Hemodynamics: Uneventful Sign Out: Acceptable CV status Other NRE: NONE DID A NON-ROUTINE EVENT OCCUR? No Last vitals: Vitals Value Taken Time BP 101/63 12/09/23 1000 Temp 97.6 ??F (36.4 ??C) 12/09/23 0855 Pulse 58 12/09/23 1002 Resp 14 12/09/23 1002 SpO2 100 % 12/09/23 1002 Vitals shown include unfiled device data. Electronically Signed By: Chet Graves MD December 09, 2023 10:02 AM * Anesthesia Procedure Notes - Chet Graves MD - 12/09/2023 7:43 AM CDTAssociated Order(s): Spinal Block Intrathecal injection Procedure Note Pre-Procedure Staff - Anesthesiologist: Chet Graves MD Performed By: anesthesiologist Location: OR Pre-Anesthestic Checklist: patient identified, IV checked, risks and benefits discussed, informed consent, monitors and equipment checked and pre-op evaluation Timeout: Correct Patient: Yes Correct Procedure: Yes Correct Site: Yes Correct Position: Yes Procedure Documentation Procedure: intrathecal injection Patient Position: sitting Patient Prep/Sterile Barriers: sterile gloves, mask Skin prep: Betadine Insertion Site: L3-4. (left paramedian approach). Needle Gauge: 22. Needle Length (Inches): 3.5 Spinal Needle Type: Daniela tipNo introducer used # of attempts: 2 and # of redirects: 3 Assessment/Narrative Paresthesias: No. CSF fluid: clear. Opening pressure was cmH2O while Sitting. Medication(s) Administered 0.75% Hyperbaric Bupivacaine (Intrathecal) - Intrathecal 1.6 mL - 12/09/2023 7:38:00 AM Comments: Pencan with added 22 ga Daniela, lot [id number], exp. 2025-10-28 FOR [facility] ONLY: Pain Team Contact information: please page the Pain Team Via [employer]Search Pain. During daytime hours, please page the attending first. At night please page the resident first. * Anesthesia Preprocedure Evaluation - Chet Graves MD - 12/09/2023 6:52 AM CDT Anesthesia Pre-Procedure Evaluation Patient: Essie Borges : 1965 Procedure : Procedure(s): Right total hip arthroplasty Past Medical History: Diagnosis Date Diabetes (H) type 2 Hypertension Sleep apnea mouth piece since weight loss from 05/22 Uncomplicated asthma related to seasonal allergies Urinary incontinence Past Surgical History: Procedure Laterality Date ARTHROPLASTY HIP Left 05/20/2023 Procedure: Left total hip arthroplasty; Surgeon: Favio Gasca MD; Location: [facility] ENT SURGERY tonsillectomy and adenoidectomy as a child [employer] SURGERY hysterectomy. abdominal ORTHOPEDIC SURGERY Bilateral carpal tunnel SOFT TISSUE SURGERY melanoma knee Allergies Allergen Reactions Cetirizine Swelling Social History Tobacco Use Smoking status: Never Passive exposure: Past Smokeless tobacco: Never Substance Use Topics Alcohol use: Yes Comment: occas Wt Readings from Last 1 Encounters: 12/09/23 103.6 kg (228 lb 4.8 oz) Anesthesia Evaluation Pt has had prior anesthetic. Type: General. No history of anesthetic complications ROS/MED HX ENT/Pulmonary: (+) sleep apnea, doesn't use CPAP, Intermittent, asthma Treatment: Inhaler prn, Neurologic: - neg neurologic ROS Cardiovascular: (+) hypertension- - - - - METS/Exercise Tolerance: Hematologic: - neg hematologic ROS Musculoskeletal: - neg musculoskeletal ROS GI/Hepatic: - neg GI/hepatic ROS Renal/Genitourinary: - neg Renal ROS Endo: (+) type II DM, thyroid problem, hypothyroidism, Obesity, Psychiatric/Substance Use: - neg psychiatric ROS Infectious Disease: - neg infectious disease ROS Malignancy: - neg malignancy ROS Other: - neg other ROS Physical Exam Airway Mallampati: I TM distance: > 3 FB Neck ROM: full Mouth opening: > 3 cm Respiratory Devices and Support Dental no notable dental history Cardiovascular cardiovascular exam normal Pulmonary pulmonary exam normal OUTSIDE LABS: CBC: Lab Results Component Value Date WBC 7.5 05/20/2023 HGB 10.2 (L) 05/21/2023 HGB 12.9 05/20/2023 HCT 39.8 05/20/2023 PLT 203 05/20/2023 BMP: Lab Results Component Value Date GLC 103 (H) 05/21/2023 GLC 129 (H) 05/21/2023 COAGS: No results found for: PTT, INR, FIBR POC: No results found for: BGM, HCG, HCGS HEPATIC: No results found for: ALBUMIN, PROTTOTAL, ALT, AST, GGT, ALKPHOS, BILITOTAL,BILIDIRECT, FILI OTHER: No results found for: PH, LACT, A1C, BRANDY, PHOS, MAG, LIPASE, AMYLASE, TSH,T4, T3, CRP, SED Anesthesia Plan ASA Status: 3 NPO Status: NPO Appropriate Anesthesia Type: Spinal. Maintenance: Other. Consents Anesthesia Plan(s) and associated risks, benefits, and realistic alternatives discussed. Questions answered and patient/sales training representative(s) expressed understanding. - Discussed: - Discussed with: Patient Postoperative Care Pain management: IV analgesics, Oral pain medications, Multi-modal analgesia. PONV prophylaxis: Ondansetron (or other 5HT-3), Dexamethasone or Solumedrol Comments: Chet Graves MD I have reviewed the pertinent notes and labs in the chart from the past 30 days and (re)examined the patient. Any updates or changes from those notes are reflected in this note. # Drug Induced Platelet Defect: home medication list includes an antiplatelet medication # Obesity: Estimated body mass index is 35.75 kg/m?? as calculated from the following: Height as of this encounter: 1.702 m (5' 7.01). Weight as of this encounter: 103.6 kg (228 lb 4.8 oz). documented in this encounter Miscellaneous Notes * Anesthesia Care Transfer Note - Jh Wood APRN CRNA - 12/09/2023 9:01 AM CDT Patient: Essie Borges Procedure: Procedure(s): Right total hip arthroplasty Diagnosis: Primary osteoarthritis of right hip [M16.11] Diagnosis Additional Information: No value filed. Anesthesia Type: Spinal Note: Oropharynx: oropharynx clear of all foreign objects and spontaneously breathing Level of Consciousness: drowsy Oxygen Supplementation: face mask Level of Supplemental Oxygen (L/min / FiO2): 8 Independent Airway: airway patency satisfactory and stable Vital Signs Stable: post-procedure vital signs reviewed and stable Report to RN Given: handoff report given Patient transferred to: PACU Handoff Report: Identifed the Patient, Identified the Reponsible Provider, Reviewed the pertinent medical history, Discussed the surgical course, Reviewed Intra-OP anesthesia mangement and issues during anesthesia, Set expectations for post-procedure period and Allowed opportunity for questions andacknowledgement of understanding Vitals: Vitals Value Taken Time BP 94/62 12/09/23 0855 Temp 97.6 ??F (36.4 ??C) 12/09/23 0855 Pulse 92 12/09/23 0900 Resp 12 12/09/23 0900 SpO2 100 % 12/09/23 0900 Vitals shown include unfiled device data. Electronically Signed By: Jh Wood APRN CRNA December 09, 2023 9:01 AM documented in this encounter Plan of Treatment Not on file documented as of this encounter Goals Goal Patient Goal Type Associated Problems Recent Progress Patient-Stated? Author Total Joint Replacement Hip Pathway Care Plan Total Joint Replacement Hip Pathway No Felipe Gaines RN documented as of this encounter Procedures Procedure Name Priority Date/Time Associated Diagnosis Comments ANE SPINAL BLOCK FORM Routine 12/09/2023 7:43 AM CDT documented in this encounter Results * Spinal Block (12/09/2023 7:43 AM CDT) [...] ??Pencan with added 22 ga Daniela, lot [id number], exp. 2025-10-28 FOR [facility] ONLY: ?? Pain Team Contact information: please page the Pain Team Via [employer]. Search Pain. During daytime hours, please page the attending first. At night please page the resident first. Chet Graves MD [place] [facility] documented in this encounter Visit Diagnoses Not on filedocumented in this encounter Administered Medications Inactive Administered Medications - up to 3 most recent administrations Medication Order MAR Action Action Date Dose Rate Site BUPivacaine 0.75% in dextrose 8.25% (intrathecal) (SENSORCAINE) 0.75-8.25 % injection Intrathecal, Starting on Jaycee 12/09/23 at 0738, Anesthesia Intra-op $Given 12/09/2023 7:38 AM CDT 1.6 mLs ceFAZolin Sodium (ANCEF) injection 2 g Routine, 2 g, Intravenous, PRE-OP/PRE-PROCEDURE, Starting on Jaycee 12/09/23 at 0629, For 1 dose, Give first dose within 1 hour PRIOR to incision. If patient weight is greater than or equal to 120 kg increase dose to 3 g., Indications: Perioperative Pharmacoprophylaxis, Pre-procedure $Given 12/09/2023 7:22 AM CDT 2 g ePHEDrine injection Intravenous, PRN, Starting on Jaycee 12/09/23 at 0833, Anesthesia Intra-op $Given 12/09/2023 8:38 AM CDT 5 mg $Given 12/09/2023 8:33 AM CDT 10 mg lactated ringers infusion at 10 mL/hr, Intravenous, CONTINUOUS, IF patient NOT on dialysis., Pre-procedure, Starting on Jaycee 12/09/23 at 0600, Until Jaycee 12/09/23 at 0855 Restarted 12/09/2023 7:22 AM CDT $New Bag 12/09/2023 6:37 AM CDT 10 mL/hr midazolam (VERSED) injection Intravenous, Administer over 2 Minutes, PRN, Starting on Jaycee 12/09/23 at 0726, Anesthesia Intra-op $Given 12/09/2023 7:26 AM CDT 2 mg phenylephrine (JUANITA-SYNEPHRINE) injection Intravenous, CONTINUOUS PRN, Starting on Jaycee 12/09/23 at 0800, Anesthesia Intra-op $Bolus 12/09/2023 8:46 AM CDT 100 mcg $Bolus 12/09/2023 8:24 AM CDT 100 mcg $Bolus 12/09/2023 8:16 AM CDT 50 mcg phenylephrine 0.1 mg/mL infusion (mcg/kg/min) Intravenous, CONTINUOUS PRN, Starting on Jaycee 12/09/23 at 0818, Anesthesia Intra-op $New Bag 12/09/2023 8:35 AM CDT 0.4 mcg/kg/min 24.864 mL/hr Rate/Dose Change 12/09/2023 8:30 AM CDT 0.5 mcg/kg/min 31. 08 mL/hr Rate/Dose Change 12/09/2023 8:27 AM CDT 0.4 mcg/kg/min 24. 864 mL/hr propofol (DIPRIVAN) infusion Intravenous, CONTINUOUS PRN, Starting on Jaycee 12/09/23 at 0740, Anesthesia Intra-op Rate/Dose Change 12/09/2023 8:38 AM CDT 35 mcg/kg/min 21.756 mL/hr Rate/Dose Change 12/09/2023 8:30 AM CDT 40 mcg/kg/min 24.8 64 mL/hr Rate/Dose Change 12/09/2023 8:25 AM CDT 50 mcg/kg/min 31.0 8 mL/hr tranexamic acid 1 g in 100 mL NS IV bag (premix) 1 g, Intravenous, Administer over 10 Minutes, ONCE, On Jaycee 12/09/23 at 0630, For 1 dose, Give before incision., Pre-procedure $Given 12/09/2023 7:32 AM CDT 1 g tranexamic acid 1 g in 100 mL NS IV bag (premix) 1 g, Intravenous, Administer over 10 Minutes, ONCE, On Jaycee 12/09/23 at 0630, For 1 dose, Give at Closure., Pre-procedure $Given 12/09/2023 8:28 AM CDT 1 g documented in this encounter Additional Health Concerns Active Problems Noted Date Diagnosed Date Total Joint Replacement Hip Pathway 05/10/2023 documented as of this encounter Care Teams [employer] Relationship Specialty Start Date End Date Rae Dorantes MD [facility] & [address] [address] PCP - General Internal Medicine 04/26/23 documented as of this encounter
--- OUTSIDE RECORDS SUMMARY | 2024-03-02 08:42 | XMS_ITS | Encounter Summary ---
Author Organization [facility] Address [address] [place] [id number] Care Team Providers Care Comparison Shopper Name Role Phone Rae Dorantes MD Primary Care Provider Reason for Visit * Auth/Cert Specialty Diagnoses / Procedures Referred By Maira adair Referred To Contact Surgery Diagnoses Primary osteoarthritis of right hip Primary osteoarthritis of right hip [M16.11] Procedures MT TOTAL HIP ARTHROPLASTY Right total hip arthroplasty Periop Services [address] [place] [address] Referral ID Status Reason Start Date Expiration Date Visits Re quested Visits Authorized [id number] 1 1 Encounter Details Date Type Department Care Team (Late st Contact Info) Description 12/09/2023 7:30 AM CDT - 12/09/2023 9:55 AM CDT Surgery [facility] PeriOp Services [address] [place] [address] Favio Gasca MD [facility] [address], [place] [address] [place] [address] Right total hip arthroplasty Surgery Details Date/Time Status Location OR Service Patient Class Case Class Case Type Trauma Case? 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 Gender Identity Female 05/01/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 Sexual Orientation Not on file documented as of this encounter Last Filed Vital Signs Vital Sign Reading Time Taken Comments Blood Pressure 118/87 12/09/2023 9:52 AM CDT Pulse 83 12/09/2023 9:52 AM CDT Temperature 36.4 ??C (97.6 ??F) 12/09/2023 8:55 AM CD T Respiratory Rate 16 12/09/2023 9:52 AM CDT Oxygen Saturation 100% 12/09/2023 9:52 AM CDT Inhaled Oxygen Concentration - - Weight 103.6 kg (228 lb 4.8 oz) 12/09/2023 5:31 AM CDT Height 170.2 cm (5' 7.01) 12/09/2023 5:31 AM CD T Body Mass Index 35.75 12/09/2023 5:31 AM CDT documented in this encounter Medications at Time of Discharge Medication Sig Dispensed Refills Start Date End Date ACCU-CHEK GUIDE test strip daily 12/24/2022 acetaminophen (TYLENOL) 325 MG tabletIndications:S/P total right hip arthroplasty Take 2 tablets (650 mg) by mouth every 4 hours as needed for other (mild pain) 100 tablet 12/09/2023 albuterol (PROAIR HFA/PROVENTIL HFA/VENTOLIN HFA) 108 (90 Base) MCG/ACT inhaler Inhale 2 puffs into the lungs every 6 hours as needed for shortness of breath, wheezing or cough aspirin 81 MG EC tabletIndications:S/P total right hip arthroplasty Take 1 tablet (81 mg) by mouth 2 times daily 90 tablet 12/09/2023 blood glucose monitoring (SOFTCLIX) lancets TEST 1 TIME DAILY 12/23/2022 [id number]-[id number]-pottko elizabeth 4-10-30 % CREA Apply topically daily as needed celecoxib (CELEBREX) 200 MG capsuleIndications:S/P total right hip arthroplasty Take 1 capsule (200 mg) by mouth 2 times daily for 30 days Do not take within 6 hours of ibuprofen (MOTRIN, ADVIL) or ketorolac (TORADOL) if prescribed. 60 capsule 12/09/2023 levothyroxine (SYNTHROID/LEVOTHROID) 150 MCG tablet Take 150 mcg by mouth daily methocarbamol (ROBAXIN) 500 MG tabletIndications:S/P total right hip arthroplasty Take 1 tablet (500 mg) by mouth 4 times daily as needed for muscle spasms 30 tablet 12/09/2023 Multiple Vitamins-Minerals (MULTIVITAMIN ADULTS 50+ PO) Take 1 tablet by mouth daily omeprazole (PRILOSEC) [address] capsuleIndications:S/P total right hip arthroplasty Take 1 capsule (20 mg) by mouth daily 30 capsule 12/09/2023 oxyCODONE (ROXICODONE) 5 MG tabletIndications:S/P total right hip arthroplasty Take 1-2 tablets (5-10 mg) by mouth every 4 hours as needed for moderate to severe pain 30 tablet 12/09/2023 polyethylene glycol (MIRALAX) 17 g packetIndications:S/P total right hip arthroplasty Take 17 g by mouth daily 7 packet 12/09/2023 polyethylene glycol (MIRALAX) 17 g packetIndications:Prima ry osteoarthritis of left hip Take 17 g by mouth daily 7 packet 05/20/2023 senna-docusate (SENOKOT-S/PERICOLACE) 8.6-50 MG tabletIndications:S/P total right hip arthroplasty Take 1-2 tablets by mouth 2 times daily Take while on oral narcotics to prevent or treat constipation. 30 tablet 12/09/2023 simvastatin (ZOCOR) 10 MG tablet Take 10 mg by mouth at bedtime tirzepatide (MOUNJARO) 2.5 MG/0.5ML pen Inject 2.5 mg Subcutaneous every 7 days Turmeric 400 MG CAPS Take 1 capsule by mouth 2 times daily valsartan-hydrochloroth iazide (DIOVAN HCT) 160-12.5 MG tablet Take 1 tablet by mouth daily documented as of this encounter Progress Notes * Monroe Cuenca RN - 12/10/2023 12:14 PM CDT Patient vital signs are at baseline: No, Reason: BP softer than usual - home med held - pt expectedto continue upon discharge - instructed to monitor BP at home and contact PCP if pressure remains lower. Patient able to ambulate as they were prior to admission or with assist devices provided by therapies during their stay: Yes Patient MUST void prior to discharge: Yes Patient able to tolerate oral intake: Yes Pain has adequate pain control using Oral analgesics: Yes Does patient have an identified gymnastics coach or instructor: Yes Has goal D/C date and time been discussed with patient: Yes RN - Hypotensive otherwise vitally stable. Pt up with 1 and walker. Spouse at bedside and supportive. Dressings CDI. Ramesh PO intake. Voiding. Receiving discharge orders. Patient's After Visit Summary was reviewed with patient and/or spouse. Patient verbalized understanding of After Visit Summary, recommended follow up and was given an opportunity to ask questions. Discharge medications sent home with patient/family: YES Discharged with spouse * Tomasa Wood OTR - 12/10/2023 9:31 AM CDT 12/10/23 0850 Appointment Info Signing Clinician's Name / Credentials (OT) Tomasa Wood MS, OTR/L Living Environment People in Home significant other Current Living Arrangements house Home Accessibility stairs to enter home Living Environment Comments Reports can have 24 hr assist from SO at discharge Self-Care Usual Activity Tolerance good Current Activity Tolerance moderate Equipment Currently Used at Home raised toilet seat;grab bar, tub/shower;grab bar, toilet;walker, standard;tub bench (toilet safety frame, clamp on tub grab bar, sock aid, armature varnisher, walker bag, long handled bath sponge) Fall history within last six months no (per EMR) Activity/Exercise/Self-Care Comment Pt reports at baseline she is independent in self-cares. Reports she will have SO help with LB dressing at discharge General Information Onset of Illness/Injury or Date of Surgery 12/09/23 Referring Physician Mimi Richardson PA-C Patient/Family Therapy Goal Statement (OT) Return home Additional Occupational Profile Info/Pertinent History of Current Problem POD1 Right total hip arthroplasty. L SUDARSHAN in April 2023. See EMR for additional PMH Existing Precautions/Restrictions fall;no hip IR;no hip ADD past midline;90 degree hip flexion Cognitive Status Examination Affect/Mental Status (Cognitive) WFL Follows Commands follows multi-step commands Pain Assessment Patient Currently in Pain Yes, see Vital Sign flowsheet Transfers Transfers shower transfer Shower Transfer [place] Level (Shower Transfer) minimum assist (75% patient effort) Activities of Daily Living BADL Assessment/Intervention lower body dressing;toileting;grooming Lower Body Dressing Assessment/Training Comment, (Lower Body Dressing) pt plans to have SO assist at discharge [place] Level (Lower Body Dressing) minimum assist (75% patient effort) Toileting [place] Level (Toileting) supervision Clinical Impression Criteria for Skilled Therapeutic Interventions Met (OT) Yes, treatment indicated OT Diagnosis Decline function OT Problem List-Impairments impacting ADL activity tolerance impaired;pain;post- surgical precautions;mobility Assessment of Occupational Performance 3-5 Performance Deficits Identified Performance Deficits Tub transfer, functional mobility during selfcares Planned Therapy Interventions (OT) ADL retraining;transfer training;home program guidelines;progressive activity/exercise Clinical Decision Making Complexity (OT) problem focused assessment/low complexity Risk & Benefits of therapy have been explained evaluation/treatment results reviewed;care plan/treatment goals reviewed;risks/benefits reviewed;current/potential barriers reviewed;participants voiced agreement with care plan;participants included;patient OT Total Evaluation Time OT Eval, Low Complexity Minutes (45015) 13 OT Goals Therapy Frequency (OT) One time eval and treatment OT Predicted Duration/Target Date for Goal Attainment 12/11/23 OT Goals Transfers;OT Goal 1;OT Goal 2 OT: Transfer Supervision/stand-by assist (Tub transfer) OT: Goal 1 Pt will demonstrate adequate activity tolerance to ambulate household distance with FWW with no more than SBA OT: Goal 2 Pt and SO will verbalize understanding of pain management strategies, how to progress activity tolerance, fall prevention Interventions Interventions Quick Adds Self-Care/Home Management Self-Care/Home Management Self-Care/Home Mgmt/ADL, Compensatory, Meal Prep Minutes (05045) 15 OT Discharge Planning OT Plan DC OT Discharge Recommendation (DC Rec) (Defer to ortho) OT Rationale for DC Rec Anticipate at discharge pt will require supervision with self-cares except require Jo with LB dressing. Pt and SO confirm pt can have this level of assist at discharge. Pt demonstrating adequate activity tolerance and safe completion of selfcares within hip precautions. Primarily limited by impairments in pain and appears to have good understanding of management strategies OT Brief overview of current status SBA tub transfer. Education provided OT Equipment Needed at Discharge (Pt has) Total Session Time Timed Code Treatment Minutes 15 Total Session Time (sum of timed and untimed services) 28 Occupational Therapy Discharge Summary Reason for therapy discharge: All goals and outcomes met, no further needs identified. Progress towards therapy goal(s). See goals on Care Plan in [facility] electronic health record for goal details. Goals met Therapy recommendation(s): No further therapy is recommended. * Favio Gasca MD - 12/10/2023 9:26 AM CDT ORTHOPAEDIC SURGERY STAFF PROGRESS NOTE Resting comfortably with pain medication. No overnight events. Denies chest pain, shortness of breath, lightheadedness. BP 99/48 Pulse 96 Temp 97.6 ??F (36.4 ??C) (Temporal) Resp 16 Ht 1.702 m (5' 7.01) Wt 103.6 kg (228 lb 4.8 oz) SpO2 100% BMI 35.75 kg/m?? RLE- Dressing clean/dry/intact Compartments soft +extensor hallucis longus, flexor hallucis longus, tibialis anterior, gastroc- soleus complex, Quadriceps Sensation intact to light touch superficial peroneal, deep peroneal, sural, saphenous, tibial nerve distributions Palpable DP pulse S/P R SUDARSHAN POD Doing well overall Pain control DVT ppx -ASA PT/OT WBAT Plan for D/C Home today Favio Gasca MD [facility] [place] [phone] * Adilene Kruger, PT - 12/09/2023 4:10 PM CDT 12/09/23 5823 Appointment Info Signing Clinician's Name / Credentials (PT) Adilene Kruger DPT Rehab Comments (PT) WBAT RLE, no hip IR/add/flex>90 Living Environment People in Home spouse Current Living Arrangements house Home Accessibility stairs to enter home Number of Stairs, Main Entrance 3 Stair Railings, Main Entrance railings safe and in good condition Number of Stairs, Within Home, Primary greater than 10 stairs Stair Railings, Within Home, Primary railings safe and in good condition Transportation Anticipated family or friend will provide Living Environment Comments Pt lives in house with , 3STE, bedroom full flight upstairs but pt staying on main level upon DC Self-Care Usual Activity Tolerance good Current Activity Tolerance moderate Equipment Currently Used at Home shower chair;raised toilet seat;grab bar, tub/shower;grab bar, toilet;cane, straight;walker, standard Fall history within last six months no Activity/Exercise/Self-Care Comment Pt IND with mobility and cares at baseline. Reports owning walker from prior SUDARSHAN General Information Onset of Illness/Injury or Date of Surgery 12/09/23 Referring Physician Mimi Richardson PA-C Patient/Family Therapy Goals Statement (PT) improve mobility, return home Pertinent History of Current Problem (include personal factors and/or comorbidities that impact thePOC) POD#0 s/p R SUDARSHAN Existing Precautions/Restrictions fall;no hip IR;no hip ADD past midline;90 degree hip flexion;weight bearing Weight-Bearing Status - RLE weight-bearing as tolerated Cognition Affect/Mental Status (Cognition) WNL Orientation Status (Cognition) oriented x 4 Follows Commands (Cognition) WNL Pain Assessment Patient Currently in Pain Yes, see Vital Sign flowsheet (09/07) Integumentary/Edema Integumentary/Edema Comments incision covered Posture Posture Forward head position;Protracted shoulders Range of Motion (ROM) Range of Motion ROM deficits secondary to surgical procedure Strength (Manual Muscle Testing) Strength (Manual Muscle Testing) strength is WFL Bed Mobility Comment, (Bed Mobility) SBA supine>sit Transfers Comment, (Transfers) CGA sit<>stand with FWW Gait/Stairs (Locomotion) Distance in Feet (Gait) 15' for eval Comment, (Gait/Stairs) CGA with FWW ambulation Balance Balance Comments good sitting balance, fair standing balance with FWW for UE support Sensory Examination Sensory Perception patient reports no sensory changes Clinical Impression Criteria for Skilled Therapeutic Intervention Yes, treatment indicated PT Diagnosis (PT) impaired mobility Influenced by the following impairments decreased activity tolerance, hip precautions, pain, impaired balance Functional limitations due to impairments impaired bed mobility, transfers, ambulation, stairs Clinical Presentation (PT Evaluation Complexity) stable Clinical Presentation Rationale clinical judgement, chart review Clinical Decision Making (Complexity) low complexity Planned Therapy Interventions (PT) balance training;bed mobility training;gait training;home exercise program;neuromuscular re-education;patient/family education;stair training;strengthening;transfertraining;home program guidelines;risk factor education;progressive activity/exercise Risk & Benefits of therapy have been explained evaluation/treatment results reviewed;care plan/treatment goals reviewed;risks/benefits reviewed;current/potential barriers reviewed;participants voiced agreement with care plan;participants included;patient PT Total Evaluation Time PT Eval, Low Complexity Minutes (78476) 6 Physical Therapy Goals PT Frequency Daily PT Predicted Duration/Target Date for Goal Attainment 12/10/23 PT Goals Bed Mobility;Transfers;Gait;Stairs PT: Bed Mobility Supervision/stand-by assist;Supine to/from sit;Within precautions PT: Transfers Supervision/stand-by assist;Sit to/from stand;Assistive device;Within precautions PT: Gait Supervision/stand-by assist;Rolling walker;Greater than 200 feet;Within precautions PT: Stairs Supervision/stand-by assist;3 stairs;Rail on right;Within precautions Interventions Interventions Quick Adds Therapeutic Procedure;Therapeutic Activity;Gait Training Therapeutic Procedure/Exercise Ther. Procedure: strength, endurance, ROM, flexibillity Minutes (99924) 8 Symptoms Noted During/After Treatment increased pain Treatment Detail/Skilled Intervention Pt cued for supine exercises for strength and circulation benefits including APs, quad sets, glute sets, SLRs, x10 each. Cues for slow and controlled movement. Edu on intensity and frequency of exercises. Provided HEP handout. Therapeutic Activity Therapeutic Activities: dynamic activities to improve functional performance Minutes (97398) 9 Symptoms Noted During/After Treatment Fatigue;Increased pain Treatment Detail/Skilled Intervention Pt supine upon arrival, agreeable. Increased time for room setup, line management. Edu on WBAT status, hip precautions. After eval, pt cued for toilet transfer with toilet riser, cueing for hand placement, SBA with walker. Pt able to manage brief SBA, IND pericares. Edu on walking program upon discharge. Encouraged walking with nursing staff to continue progressing mobility. Returned to bedside recliner end of session, alarm on and needs in reach. Nurse updated. Gait Training Gait Training Minutes (14217) 10 Symptoms Noted During/After Treatment (Gait Training) fatigue;increased pain Treatment Detail/Skilled Intervention After eval, pt ambulated another 275' with FWW and CGA progressing to SBA. Demos slow gait speed, forward flexed posture with increased reliance of UEs on walker, step-to patterning. Cues for step- through patterning, limiting UE support as able, turns within hip precautions. Distance in Feet 275' PT Discharge Planning PT Plan trial stairs, review HEP, progress ambulation distance PT Discharge Recommendation (DC Rec) (defer to ortho) PT Rationale for DC Rec Pt below baseline level of mobility, currently SBA with FWW. Anticipate with IP PT that pt will progress to return home with assist from as needed. PT Brief overview of current status SBA with FWW PT Equipment Needed at Discharge (pt has FWW at home) Total Session Time Timed Code Treatment Minutes 27 Total Session Time (sum of timed and untimed services) 33 documented in this encounter Consult Notes * Rosa Styles PA-C - 12/10/2023 7:33 AM CDTAssociated Order(s): HOSPITALIST IP CONSULT [facility] Brief Consult Note - Hospitalist Service Date of Admission: 12/09/2023 Consult Requested by: orthopedics Reason for Consult: home med rec Assessment & Plan Essie Borges is a 58 year old female with PMH type 2 DM, HTN, hypothyroidism status post a right total hip arthroplasty with Dr. Gasca. No surgical complications noted. Estimated EBL 100 mL. Vital signs this morning, afebrile, heart rate 95, blood pressure 101/47, respirations 16, oxygen 100% on room air. BMP notable for creatinine of 1.01. Hemoglobin is 9.2. Medications have been reconciled, chart reviewed, nursing does not have any concerns, will not formally see this patient unless concerns arise. Right total hip arthroplasty on 12/09/2023 - Routine postoperative cares per primary service, including IVF, pain control, abx, DVT ppx, and disposition - PT/OT as per primary service - Aggressive pulmonary toilet, frequent IS use 10x/hour while awake - *Please reach out if medical issues arise that require Hospitalist assistance HTN - would continue to hold hydrochlorothiazide-valsartan due to softer blood pressures Hypothyroidism - continue guest experience captain levothryoxine Type 2 DM - not currently on guest experience captain DM medications. Blood glucose well controlled during admission. The patient's care was discussed with the Bedside Nurse and Patient. Clinically Significant Risk Factors Present on Admission # Drug Induced Platelet Defect: home medication list includes an antiplatelet medication # Hypertension: Home medication list includes antihypertensive(s) # Circulatory Shock: required vasopressors within past 24 hours # Anemia: based on hgb <11 # Obesity: Estimated body mass index is 35.75 kg/m?? as calculated from the following: Height as of this encounter: 1.702 m (5' 7.01). Weight as of this encounter: 103.6 kg (228 lb 4.8 oz). ROSA Styles PA-C Hospitalist Service Securely message with [employer] (more info) Text page via [facility] Paging/Directory Past Medical History Past Medical History: Diagnosis Date Diabetes (H) type 2 Hypertension Sleep apnea mouth piece since weight loss from 05/22 Uncomplicated asthma related to seasonal allergies Urinary incontinence Past Surgical History Past Surgical History: Procedure Laterality Date ARTHROPLASTY HIP Left 05/20/2023 Procedure: Left total hip arthroplasty; Surgeon: Favio Gasca MD; Location: [facility] OR ENT SURGERY tonsillectomy and adenoidectomy as a child 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 abdominal ORTHOPEDIC SURGERY Bilateral carpal tunnel SOFT TISSUE SURGERY melanoma knee Medications Medications Prior to Admission Medication Sig Dispense Refill Last Dose ACCU-CHEK GUIDE test strip daily 12/09/2023 albuterol (PROAIR HFA/PROVENTIL HFA/VENTOLIN HFA) 108 (90 Base) MCG/ACT inhaler Inhale 2 puffs intothe lungs every 6 hours as needed for shortness of breath, wheezing or cough More than a month blood glucose monitoring (SOFTCLIX) lancets TEST 1 TIME DAILY 12/09/2023 [id number]-htflqre-mghtcw elizabeth 4-10-30 % CREA Apply topically daily as needed Past Month levothyroxine (SYNTHROID/LEVOTHROID) 150 MCG tablet Take 150 mcg by mouth daily 12/08/2023 Multiple Vitamins-Minerals (MULTIVITAMIN ADULTS 50+ PO) Take 1 tablet by mouth daily Past Month polyethylene glycol (MIRALAX) 17 g packet Take 17 g by mouth daily 7 packet 0 12/08/2023 simvastatin (ZOCOR) 10 MG tablet Take 10 mg by mouth at bedtime Past Week tirzepatide (MOUNJARO) 2.5 MG/0.5ML pen Inject 2.5 mg Subcutaneous every 7 days 11/27/23 Turmeric 400 MG CAPS Take 1 capsule by mouth 2 times daily Past Week valsartan-hydrochlorothiazide (DIOVAN HCT) 160-12.5 MG tablet Take 1 tablet by mouth daily 12/09/2023 [DISCONTINUED] acetaminophen (TYLENOL) 325 MG tablet Take 2 tablets (650 mg) by mouth every 4 hoursas needed for other (mild pain) 60 tablet 0 Past Week [DISCONTINUED] aspirin 81 MG EC tablet Take 81 mg by mouth daily Past Month [DISCONTINUED] senna-docusate (SENOKOT-S/PERICOLACE) 8.6-50 MG tablet Take 1-2 tablets by mouth 2 times daily Take while on oral narcotics to prevent or treat constipation. 30 tablet 0 More than a month Social History Social History Tobacco Use Smoking status: Never Passive exposure: Past Smokeless tobacco: Never Substance Use Topics Alcohol use: Yes Comment: occas Drug use: Never Allergies Allergies Allergen Reactions Cetirizine Swelling Medical Decision Making MANAGEMENT DISCUSSED with the following over the past 24 hours: patient, nursing NOTE(S)/MEDICAL RECORDS REVIEWED over the past 24 hours: labs, imaging, progress notes Data I have personally reviewed the following data over the past 24 hrs: N/A \ 9.2 (L) / N/A 138 107 14.2 / 96 3.6 23 1.01 (H) \ Imaging results reviewed over the past 24 hrs: Recent Results (from the past 24 hour(s)) XR Pelvis w Hip Port Right 1 View Narrative XR PELVIS AND HIP PORTABLE RIGHT 1 VIEW 12/09/2023 9:26 AM HISTORY: Status post Hip surgery COMPARISON: 05/20/2023 Impression IMPRESSION: Status post recent right total hip arthroplasty. No immediate hardware complication. Expected postsurgical soft tissue edema and subcutaneous emphysema. No acute fracture or malalignment. Osteopenia. Prior left total hip arthroplasty. SARI GUTHRIE MD SYSTEM ID: [id number] documented in this encounter Miscellaneous Notes * Plan of Care - Adilene Kruger PT - 12/10/2023 8:59 AM CDT Physical Therapy Discharge Summary Reason for therapy discharge: All goals and outcomes met, no further needs identified. Progress towards therapy goal(s). See goals on Care Plan in [facility] electronic health record for goal details. Goals met Therapy recommendation(s): Continue home exercise program. * Plan of Care - Jannet Holley RN - 12/10/2023 5:05 AM CDT Goal Outcome Evaluation: Plan of Care Reviewed With: patient Overall Patient Progress: improvingOverall Patient Progress: improving A&Ox4. VS soft BP. Pain controlled tylenol and oxycodone overnight.. Assist 1 walker/gait belt.Ambulates to bathroom.CMS intact right hip,dressing intact.Bladder scan 145. Problem: Adult Inpatient Plan of Care Goal: Plan of Care Review Description: The Plan of Care Review/Shift note should be completed every shift. The Outcome Evaluation is a brief statement about your assessment that the patient is improving, declining, or no change. This information will be displayed automatically on your shift note. Outcome: Adequate for Care Transition Flowsheets (Taken 12/10/2023 0505) Plan of Care Reviewed With: patient Overall Patient Progress: improving Goal: Patient-Specific Goal (Individualized) Description: You can add care plan individualizations to a care plan. Examples of Individualizationmight be: Parent requests to be called daily at 9am for status, I have a hard time hearing out of my right ear, or Do not touch me to wake me up as it startles me. Outcome: Adequate for Care Transition Goal: Absence of Hospital-Acquired Illness or Injury Outcome: Adequate for Care Transition Intervention: Identify and Manage Fall Risk Recent Flowsheet Documentation Taken 12/10/2023127 by Jannet Holley RN Safety Promotion/Fall Prevention: clutter free environment maintained safety round/check completed Intervention: Prevent Skin Injury Recent Flowsheet Documentation Taken 12/10/2023127 by Jannet Holley RN Body Position: position changed independently supine, head elevated Intervention: Prevent and Manage VTE (Venous Thromboembolism) Risk Recent Flowsheet Documentation Taken 12/10/2023127 by Jannet Holley RN VTE Prevention/Management: SCDs on (sequential compression devices) Intervention: Prevent Infection Recent Flowsheet Documentation Taken 12/10/2023127 by Jannet Holley RN Infection Prevention: single patient room provided rest/sleep promoted hand hygiene promoted Goal: Optimal Comfort and Wellbeing Outcome: Adequate for Care Transition Goal: Readiness for Transition of Care Outcome: Adequate for Care Transition * Plan of Care - Eryn Martinez RN - 12/09/2023 10:49 PM CDT Goal Outcome Evaluation: Patient vital signs are at baseline: Yes, but BP low side.no symptoms. Patient able to ambulate as they were prior to admission or with assist devices provided by therapies during their stay: Yes, A-1 with walker and gate belt. Ambulated to bathroom. Patient MUST void prior to discharge: Yes Patient able to tolerate oral intake: Yes Pain has adequate pain control using Oral analgesics: Yes, Oxycodone and IV dilaudid. Does patient have an identified gymnastics coach or instructor: Yes Has goal D/C date and time been discussed with patient: Yes , expected discharge on 712 hours/24 to home. Plan of Care Reviewed With: patient Overall Patient Progress: improvingOverall Patient Progress: improving Outcome Evaluation: pt is A&OX4, on CAPNO monitoring, On RA. IV infusing . BP low side. CMS inatact. dresing CDI. voidnig. A-1 with w/gatebelt. Problem: Hip Arthroplasty Goal: Optimal Coping Outcome: Progressing Goal: Absence of Bleeding Outcome: Progressing Goal: Effective Bowel Elimination Outcome: Progressing Goal: Fluid and Electrolyte Balance Outcome: Progressing Goal: Optimal Functional Ability Outcome: Progressing Intervention: Promote Optimal Functional Status Recent Flowsheet Documentation Taken 12/09/20232199 by Eryn Martinez RN Assistive Device Utilized: gait belt walker Activity Management: ambulated to bathroom Goal: Absence of Infection Signs and Symptoms Outcome: Progressing Goal: Intact Neurovascular Status Outcome: Progressing Goal: Anesthesia/Sedation Recovery Outcome: Progressing Intervention: Optimize Anesthesia Recovery Recent Flowsheet Documentation Taken 12/09/20232199 by Eryn Martinez RN Administration (IS): instruction provided, initial proper technique demonstrated self-administered Level Incentive Spirometer (mL): 1500 Number of Repetitions (IS): 7 Goal: Acceptable Pain Control Outcome: Progressing Intervention: Prevent or Manage Pain Recent Flowsheet Documentation Taken 12/09/20232001 by Eryn Martinez RN Pain Management Interventions: cold applied care clustered pillow support provided quiet environment facilitated rest emotional support Goal: Nausea and Vomiting Relief Outcome: Progressing Goal: Effective Urinary Elimination Outcome: Progressing Goal: Effective Oxygenation and Ventilation Outcome: Progressing Problem: Adult Inpatient Plan of Care Goal: Plan of Care Review Description: The Plan of Care Review/Shift note should be completed every shift. The Outcome Evaluation is a brief statement about your assessment that the patient is improving, declining, or no change. This information will be displayed automatically on your shift note. Outcome: Progressing Flowsheets (Taken 12/09/20232247) Outcome Evaluation: pt is A&OX4, on CAPNO monitoring, On RA. IV infusing . BP low side. CMS inatact. dresing CDI. voidnig. A-1 with w/gatebelt. Plan of Care Reviewed With: patient Overall Patient Progress: improving Goal: Patient-Specific Goal (Individualized) Description: You can add care plan individualizations to a care plan. Examples of Individualizationmight be: Parent requests to be called daily at 9am for status, I have a hard time hearing out of my right ear, or Do not touch me to wake me up as it startles me. Outcome: Progressing Goal: Absence of Hospital-Acquired Illness or Injury Outcome: Progressing Intervention: Prevent and Manage VTE (Venous Thromboembolism) Risk Recent Flowsheet Documentation Taken 12/09/20232199 by Eryn Martinez RN VTE Prevention/Management: SCDs on (sequential compression devices) Intervention: Prevent Infection Recent Flowsheet Documentation Taken 12/09/20232199 by Eryn Martinez RN Infection Prevention: hand hygiene promoted equipment surfaces disinfected Goal: Optimal Comfort and Wellbeing Outcome: Progressing Intervention: Monitor Pain and Promote Comfort Recent Flowsheet Documentation Taken 12/09/20232001 by Eryn Martinez RN Pain Management Interventions: cold applied care clustered pillow support provided quiet environment facilitated rest emotional support Goal: Readiness for Transition of Care Outcome: Progressing * Plan of Care - Sherron Arnold RN - 12/09/2023 5:03 PM CDT Patient vital signs are at baseline: NO, low-soft BPs Patient able to ambulate as they were prior to admission or with assist devices provided by therapies during their stay: Yes Patient MUST void prior to discharge: Yes Patient able to tolerate oral intake: Yes Pain has adequate pain control using Oral analgesics: NO, IV dilaudid Does patient have an identified gymnastics coach or instructor: Yes Has goal D/C date and time been discussed with patient: Yes From PACU at 1250, A/Ox4. No nausea. LS clear bilat., RA, educated on hourly CDB/IS x10. BS hypo, gas-, voided x1 - monitor. CMS+, denies any N/T. Drsg CDI. Up with A1 belt + walker, ambulating. Oriented to room and call system, denies questions. Pt hopeful DC home tomorrow, will transport. * Brief Op Note - Favio Gasca MD - 12/09/2023 9:41 AM CDT [facility] Brief Operative Note Pre-operative diagnosis: Primary osteoarthritis of right hip [M16.11] Post-operative diagnosis Same as pre-operative diagnosis Procedure: Right total hip arthroplasty, Right - Hip Surgeon: Surgeons and Role: * Favio Gasca MD - Primary * Mimi Richardson PA-C - Assisting Anesthesia: Spinal Estimated Blood Loss: 100 mL from 12/09/2023 7:26 AM to 12/09/2023 8:53 AM Drains: None Specimens: * No specimens in log * Findings: None. Complications: None. Implants: Implant Name Type Inv. Item Serial No. 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 LRB No. Used Action TRIDENT II TRITANIUM CLUSTERHOLE 52E - [id number] Total Joint Component/Insert TRIDENT II TRITANIUMCLUSTERHOLE 52E [employer] [id number] Right 1 Implanted INSERT ACTB 10DEG 36MM 0D E HIP X3 TRDNT STRL LF - [id number] Total Joint Component/Insert INSERT ACTB 10DEG 36MM 0D E HIP X3 TRDNT STRL LF K[employer] Otelic [id number] Right 1 Implanted 6.5MM LOW PROFILE HEX SCR 20MM - [id number] Metallic Hardware/[place] 6.5MM LOW PROFILE HEX SCR 20MMSTRYKER ORTHOPEDICS [id number] Right 1 Implanted IMP SCR STRK LOW PROFILE HEX 6.5X30MM [id number] - [id number] Metallic Hardware/[place] IMP SCR STRK LOW PROFILE HEX 6.5X30MM [id number] [employer] HY4 Right 1 Implanted IMP HEAD FEMORAL STRK BIOLOX DELTA CERAMIC 36MM +0MM - [id number] Total Joint Component/Insert IMP HEAD FEMORAL STRK BIOLOX DELTA CERAMIC 36MM +0MM [employer] [id number] Right 1 Implanted STEM FEM 105MM 11MM INSG 5 40 STD OFST 35MM HIP - [id number] Total Joint Component/Insert STEM FEM 105MM 11MM INSG 5 40 STD OFST 35MM HIP [employer] [id number] Right 1 Implanted * Op Note - Favio Gasca MD - 12/09/2023 7:54 AM CDT Preoperative diagnosis: End stage osteoarthritis right hip Postoperative diagnosis: As above Procedure: Right total hip arthoplasty Surgeon: Favio Gasca MD Sash Sticker: Mimi Richardson PA-C A physicians campaign assistant was available for the surgery and participated to decrease the patient's morbidity by assisting with positioning, manipulation of the limb during the procedure, surgical retraction as necessary, closure of the surgical wound and transferring the patient back to a hospital bed Anesthesia: Spinal Estimated blood loss: 100 cc Complications: None readily apparent Indication for Procedure Essie Borges is a 58 year old female who had a long history of issues with right hip pain. They had undergone conservative management including weight loss counseling, physical therapy, corticosteroid injections, and pain medicine. The nature of the arthritis was such that the right hip pain was refractory to the above modalities. X-rays and physical examination are consistent with end-stage osteoarthritis of the hip. As this has been refractory to conservative management, the risks, benefitsand alternatives to total hip arthroplasty were discussed with the patient. This included but was not limited to continued postoperative pain, leg-length discrepancy, dislocating total hip, prosthetic joint infection, injury to neurovascular structures and thromboembolic events. The patient was in agreement and thus, was brought to the hospital for a right total hip arthroplasty today. Description of Procedure [...] in attendance were in agreement that the right hip was the correct operative extremity. The correct patient, lat erality, hospital identification number and procedure were confirmed. [...] identified and coagulated. A Charnley retractor was placedafter palpating and confirming the sciatic nerve was safe. Bursal tissue was lifted and the short external rotators and piriformis were identified and the piriformis and conjoined tendon were released tagged for later repair. A posterior capsulotomy was then performed and tagged for repair. The hipwas dislocated, the femoral head and acetabulum were inspected and noted to have extensive arthritic changes. A femoral neck osteotomy was then performed [...] canal. Broaching commenced up to a size 5 broach which seated fully and had excellent rotational stability. Trial head and neck were placed and the hip was reduced. The hip was trialed and stability was assessed with internal rotation at 90?? of flexion position of sleep external rotation in full extension. Trial components were removed and final components were impacted into place. The hip was copiously irrigated. The acetabulum was cleaned and visual inspection showed to be clear of any debris. The hip was then relocated. Final stability testing was carried out and of standing that stability in all positions was again noted. The hip was copiously irrigated with dilute Betadine solution and sterilesaline. The posterior capsule and piriformis tendon were repaired through bone tunnels using #2 Ethibond sutures. A periarticular cocktail was injected in the soft tissues. The fascia was closed withStrata fix and oversewn with the interrupted 0 Vicryl. 0 Vicryl was were used to close the Lana'sfascia interrupted and 2-0 Vicryl for the deep dermal layer. A running 3-0 Monocryl was used in a subcuticular fashion along with Dermabond over the skin. An aquacel dressing was applied. All needle,sponge and instrument counts were correct at the end of the case in accordance with hospital protocol. The patient was aroused from sedation and transferred to the PACU in good condition with no apparent intraoperative or postoperative complications. Postoperative Plan Essie Borges will be weightbearing as tolerated. Will undergo a physical therapy regimen later today. She plans to discharge home. DVT prophylaxis will be Aspirin Implants Kel Insignia size 5 standard stem, size 52 mm Tritainium II acetabular shell, a Trident X3 polyethylene liner for a 36mm head, and a Biolox 36, +0 ceramic head. The acetabular shell was secured with 2 -6.5 cancellous screws. * Pharmacy-Admission Medication History - Li Worrell, [facility] - 12/07/2023 11:32 AM CDT Medication reconciliation interview completed by pre-admitting nurse, reviewed by pharmacy. No further clarifications needed. Prior to Admission medications Medication Sig Last Dose Taking? 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 Date ACCU-CHEK GUIDE test strip daily Yes Reported, Patient acetaminophen (TYLENOL) 325 MG tablet Take 2 tablets (650 mg) by mouth every 4 hours as needed for other (mild pain) Yes Mimi Richardson PA-C albuterol (PROAIR HFA/PROVENTIL HFA/VENTOLIN HFA) 108 (90 Base) MCG/ACT inhaler Inhale 2 puffs intothe lungs every 6 hours as needed for shortness of breath, wheezing or cough Yes Reported, Patient Yes aspirin 81 MG EC tablet Take 81 mg by mouth daily Yes Reported, Patient jrmvnzr-fpnfowd-iurggf elizabeth 4-10-30 % CREA Apply topically daily as needed Yes Reported, Patient levothyroxine (SYNTHROID/LEVOTHROID) 150 MCG tablet Take 150 mcg by mouth daily Yes Reported, Patient Yes Multiple Vitamins-Minerals (MULTIVITAMIN ADULTS 50+ PO) Take 1 tablet by mouth daily Yes Reported, Patient senna-docusate (SENOKOT-S/PERICOLACE) 8.6-50 MG tablet Take 1-2 tablets by mouth 2 times daily Takewhile on oral narcotics to prevent or treat constipation. Yes Mimi Richardson PA-C simvastatin (ZOCOR) 10 MG tablet Take 10 mg by mouth at bedtime Yes Reported, Patient Yes tirzepatide (MOUNJARO) 2.5 MG/0.5ML pen Inject 2.5 mg Subcutaneous every 7 days 11/27/23 Yes Reported, Patient valsartan-hydrochlorothiazide (DIOVAN HCT) 160-12.5 MG tablet Take 1 tablet by mouth daily Yes Reported, Patient Yes blood glucose monitoring (SOFTCLIX) lancets TEST 1 TIME DAILY Reported, Patient polyethylene glycol (MIRALAX) 17 g packet Take 17 g by mouth daily Mimi Richardson PA-C Turmeric 400 MG CAPS Take 1 capsule by mouth 2 times daily Reported, Patient * Provider Notification - David Post RN - 11/22/2023 12:29 PM CDT 11/22/23 1228 Discharge Planning Patient/Family Anticipates Transition to home with family Concerns to be Addressed all concerns addressed in this encounter Living Arrangements People in Home spouse Type of Residence Private Residence Is your private residence a single family home or apartment? Single family home Number of Stairs, Within Home, Primary greater than 10 stairs Stair Railings, Within Home, Primary railings safe and in good condition Once home, are you able to live on one level? Yes Which level? Main Level Bathroom Shower/Tub Tub/Shower unit Equipment Currently Used at Home shower chair;raised toilet seat;grab bar, tub/shower;grab bar, toilet;cane, straight;walker, standard Support System Support Systems Spouse/Significant Other Do you have someone available to stay with you one or two nights once you are home? No Medical Clearance It is recommended that you call and check with any specialty providers before surgery to see if youneed surgical clearance. Do you see any specialty providers outside of your primary care provider? No Blood Known Bleeding Disorder or Coagulopathy No Does the patient have any shinto/cultural preferences related to blood products? No Education Has the patient scheduled or completed pre-op total joint education, either in class or online, in the last 12 months? Yes What day did the patient complete, or plan to complete, pre-op total joint education? 04/23/23 Patient attended total joint pre-op class/received pre-op teaching online documented in this encounter Plan of Treatment Not on file documented as of this encounter Goals Goal Patient Goal Type Associated Problems Recent Progress Patient-Stated? Author Total Joint Replacement Hip Pathway Care Plan Total Joint Replacement Hip Pathway No Felipe Gaines RN documented as of this encounter Procedures Procedure Name Priority Date/Time Associated Diagnosis Comments HEMOGLOBIN Routine 12/10/2023 6:18 AM CDT BASIC METABOLIC PANEL Routine 12/10/2023 6:18 AM CDT GLUCOSE BY METER Routine 12/10/2023 6:07 AM CDT GLUCOSE BY METER Routine 12/09/2023 9:27 AM CDT XR PELVIS AD HIP PORTABLE RIGHT 1 VIEW STAT 12/09/2023 9:26 AM CDT ARTHROPLASTY, HIP, TOTAL 12/09/2023 7:26 AM CDT Primary osteoarthritis of right hip Special Needs Pt is a diabeticMB-yesPt would like same pre op nurse, OR team if appropriateRachel (pre op nurse)Karuna CAM and Dr Candace HOLLY GLUCOSE BY METER Routine 12/09/2023 7:22 AM CDT LAB RESULT - HIM SCAN 11/25/2023 12:00 AM CDT EKG CARDIAC - HIM SCAN 11/25/2023 12:00 AM CDT EKG CARDIAC - HIM SCAN 11/25/2023 12:00 AM CDT documented in this encounter Results * (ABNORMAL) Hemoglobin (12/10/2023 6:18 AM CDT) Hemoglobin 9.2(L) 11.7 - 15.7 g/dL 12/10/2023 6:27 AM CDT LABORATORY Blood TOPOGRAPHY UNKNOWN / Unknown Venipuncture / Unknown 12/10/2023 6:18 AM CDT 12/10/2023 6:24 AM CDT Mimi Richardson PA-C LAB - BLOOD ORDERABL ES LABORATORY [facility] Acute Care Lab [address] Lab (1st floor, no room number) [place] [address] * (ABNORMAL) Basic metabolic panel (12/10/2023 6:18 [...] - 0.95 mg/dL 12/10/2023 6:53 AM CDT LABORATORY GFR Estimate 64 >60 mL/min/1.7 3m2 12/10/2023 6:53 AM CDT LABORATORY Comment:eGFR calculated usin 2020 CKD-EPI equation. Calcium 8.8 8.6 - 10.0 mg/dL 12/10/2023 6:53 AM CDT LABORATORY Glucose 96 70 - 99 mg/dL 12/10/2023 6:53 AM CDT LABORATORY Blood TOPOGRAPHY UNKNOWN / Unknown Venipuncture / Unknown 12/10/2023 6:18 AM CDT 12/10/2023 6:24 AM CDT Rosa Styles PA-C LAB - BLOOD ORDERABL ES Performing Organization Address [facility]/ZIP Co de Phone Number [facility] Care Lab [address] Lab (1st floor, no room number) [address] * Glucose by meter (12/10/2023 6:07 AM CDT) GLUCOSE BY METER POCT 79 70 - 99 mg/dL 12/10/2023 6:26 AM CDT RH LABORATORY POC Blood, Capillary BLOOD SPECIMEN / Unknown 12/10/2023 6:07 AM CDT 12/10/2023 6:26 AM CDT Favio Gasca MD LAB - BEAKER POC T Performing Organization Address [facility]/ZIP Co de Phone Number LABORATORY [facility] Care Lab [address] Lab (1st floor, no room number) [address] * (ABNORMAL) Glucose by meter (12/09/2023 9:27 AM CDT) GLUCOSE BY METER POCT 102(H) 70 - 99 mg/dL 12/09/2023 9:34 AM CDT LABORATORY POC Blood, Capillary BLOOD SPECIMEN / Unknown 12/09/2023 9:27 AM CDT 12/09/2023 9:34 AM CDT Favio Gasca MD LAB - BEAKER POC T Performing Organization Address [facility]/ZIP Co de Phone Number LABORATORY [facility] Acute Care Lab [address] Lab (1st floor, no room number) [place] [phone] * XR Pelvis w Hip Port Right 1 View (12/09/2023 9:26 AM CDT) Anatomical Region Laterality Modality Abdomen/Pelvis Right Digital Radiogra phy Impressions 12/09/2023 9:30 AM CDT IMPRESSION: Status post recent right total hip arthroplasty. No immediate hardware complication. Expected postsurgical soft tissue edema and subcutaneous emphysema. No acute fracture or malalignment. Osteopenia. Prior left total hip arthroplasty. SARI GUTHRIE MD SYSTEM ID: [id number] Narrative 12/09/2023 9:30 AM CDT XR PELVIS AND HIP PORTABLE RIGHT 1 VIEW ??12/09/2023 9:26 AM HISTORY: Status post Hip surgery COMPARISON: 05/20/2023 Procedure Note Sari Guthrie MD - 12/09/2023 XR PELVIS AND HIP PORTABLE RIGHT 1 VIEW 12/09/2023 9:26 AM HISTORY: Status post Hip surgery COMPARISON: 05/20/2023 IMPRESSION: Status post recent right total hip arthroplasty. No immediate hardware complication. Expected postsurgical soft tissue edema and subcutaneous emphysema. No acute fracture or malalignment. Osteopenia. Prior left total hip arthroplasty. SARI GUTHRIE MD SYSTEM ID: [id number] Mimi Richardson PA-C IMG DIAGNOSTIC IMAGI NG ORDERABLES * Glucose by meter (12/09/2023 7:22 AM CDT) [facility] GLUCOSE BY METER POCT 91 70 - 99 mg/dL 12/09/2023 7:30 AM CDT LABORATORY POC Blood, Capillary BLOOD SPECIMEN / Unknown 12/09/2023 7:22 AM CDT 12/09/2023 7:30 AM CDT Favio Gasca MD LAB - BEAKER POC T LABORATORY POC [facility] Acute Care Lab [address] Lab (1st floor, no room number) [place] [address], [facility] * Lab Result - HIM Scan (11/25/2023 12:00 AM CDT) 11/25/2023 Provider Outside NON-BEAKER LAB TE STING * EKG Cardiac - HIM Scan (11/25/2023 12:00 AM CDT) 11/25/2023 Provider Outside ECG ORDERABLES * EKG Cardiac - HIM Scan (11/25/2023 12:00 AM CDT) 11/25/2023 Provider Outside ECG ORDERABLES documented in this encounter Visit Diagnoses Diagnosis S/P total left hip arthroplasty- Primary S/P total right hip arthroplasty Primary osteoarthritis of right hip Primary localized osteoarthrosis, pelvic region and thigh documented in this encounter Administered Medications Inactive Administered Medications - up to 3 most recent administrations Medication Order MAR Action Action Date Dose Rate Site acetaminophen (TYLENOL) tablet 650 mg 650 mg, Oral, EVERY 4 HOURS PRN, other, For optimal non-opioid multimodal pain management to improve pain control., Starting on [place] 12/12/23 at 0000, May give first dose 4 hours after last scheduled dose of acetaminophen (TYLENOL). Maximum acetaminophen dose from all sources = 75 mg/kg/day not to exceed 4 grams/day. acetaminophen (TYLENOL) tablet 975 mg 975 mg, Oral, ONCE, On [place] 12/09/23 at 0700, For 1 dose, Administer only if patient has not had acetaminophen in the last 6 hours Maximum acetaminophen dose from all sources = 75 mg/kg/day not to exceed 4 grams/day., Pre-procedure $Given 12/09/2023 6:58 AM CDT 975 mg acetaminophen (TYLENOL) tablet 975 mg 975 mg, Oral, EVERY 8 HOURS, First dose on [place]cee 12/09/23 at 1500, For 3 days, Administer for multimodal surgical pain management. Maximum acetaminophen dose from all sources = 75 mg/kg/day not to exceed 4 grams/day. $Given 12/10/2023 9:31 AM CDT 975 mg $Given 12/10/2023 1:28 AM CDT 975 mg $Given 12/09/2023 4:10 PM CDT 975 mg aspirin EC tablet 81 mg 81 mg, Oral, 2 TIMES DAILY, First dose on Jaycee 12/09/23 at 2000, Indications: VTE Prophylaxis, DO NOT CRUSH. $Given 12/10/2023 9:32 AM CDT 81 mg $Given 12/09/2023 8:02 PM CDT 81 mg benzocaine-menthol (CHLORASEPTIC) 6-10 MG lozenge 1 lozenge 1 lozenge, Buccal, EVERY 1 HOUR PRN, sore throat, sore throat without fever, Starting on Jaycee 12/09/23 at 1253 bisacodyl (DULCOLAX) suppository 10 mg 10 mg, Rectal, DAILY PRN, constipation, Use if Magnesium hydroxide (MILK of MAGNESIA) not effective after 24 hours. May discontinue if patient having bowel movement., Starting on [place] 12/09/23 at 1253, Hold for loose stools. ceFAZolin (ANCEF) 2 g in 100 mL D5W intermittent infusion Routine, 2 g, Intravenous, EVERY 8 HOURS, First dose on [place]cee 12/09/23 at 1530, For 2 doses, First post-op dose due 8 hours after intra-op dose, see eMAR. , Indications: Perioperative Pharmacoprophylaxis $New Bag 12/10/2023 1:28 AM CDT 2 g 200 mL/hr $New Bag 12/09/2023 4:11 PM CDT 2 g 200 mL/hr famotidine (PEPCID) injection 20 mg 20 mg, Intravenous, Administer over 2 Minutes, 2 TIMES DAILY, First dose on [place]cee 12/09/23 at 2000, If unable to take oral For ordered IV doses 1-20 mg, give IV Push diluted with 5-10 mL NS over a minimum of 2 minutes. famotidine (PEPCID) tablet 20 mg 20 mg, Oral, 2 TIMES DAILY, First dose on [facility] 12/09/23 at 2000 $Given 12/10/2023 9:31 AM CDT 20 mg $Given 12/09/2023 8:02 PM CDT 20 mg fentaNYL (PF) (SUBLIMAZE) injection 50 mcg 50 mcg, Intravenous, EVERY 5 MIN PRN, severe pain, Give fentaNYL (SUBLIMAZE) first if HYDROmorphone (DILAUDID) also ordered., Starting on [place]cee 12/09/23 at 0859, Administer fentaNYL (SUBLIMAZE) for acute pain control. [...] (SUBLIMAZE) after administering HYDROmorphone (DILAUDID)., PACU $Given 12/09/2023 9:08 AM CDT 50 mcg $Given 12/09/2023 9:03 AM CDT 50 mcg HYDROmorphone (DILAUDID) injection 0.2 mg 0.2 mg, Intravenous, EVERY 2 HOURS PRN, moderate pain, Starting on Jaycee 12/09/23 at 1253, IF patient unable to take oral pain medication or pain not controlled with oral analgesics. Hold IV PRN opioid dose for analgesic side effects. Notify provider to assess for uncontrolled pain or analgesic side effects. $Given 12/09/2023 10:16 PM CDT 0.2 mg HYDROmorphone (DILAUDID) injection 0.4 mg 0.4 mg, Intravenous, EVERY 5 MIN PRN, severe pain, Starting on Jaycee 12/09/23 at 0859, Use FentaNYL (SUBLIMAZE) first if ordered. Maximum total cumulative dose NOT to exceed 2 mg. DO NOT revert back to fentanyl (SUBLIMAZE) after administering HYDROmorphone (DILAUDID). Notify Provider to assess for uncontrolled pain or analgesic side effects., PACU $Given 12/09/2023 9:32 AM CDT 0.4 mg $Given 12/09/2023 9:15 AM CDT 0.4 mg HYDROmorphone (DILAUDID) injection 0.4 mg 0.4 mg, Intravenous, EVERY 2 HOURS PRN, severe pain, Starting on Jaycee 12/09/23 at 1253, IF patient unable to take oral pain medication or pain not controlled with oral analgesics. Hold IV PRN opioid dose for analgesic side effects. Notify provider to assess for uncontrolled pain or analgesic side effects. $Given 12/09/2023 1:18 PM CDT 0.4 mg lactated ringers infusion at 10 mL/hr, Intravenous, CONTINUOUS, IF patient NOT on dialysis., Pre-procedure, Starting on Jaycee 12/09/23 at 0600, Until Jaycee 12/09/23 at 0855 Restarted 12/09/2023 7:22 AM CDT $New Bag 12/09/2023 6:37 AM CDT 10 mL/hr lactated ringers infusion at 100 mL/hr, Intravenous, CONTINUOUS, Continue until IV catheter is weaned, PACU, Starting on Jaycee 12/09/23 at 0900, Until Wed12/09/23 at 1246 $New Bag 12/09/2023 9:04 AM CDT 100 m L/hr lactated ringers infusion at 50 mL/hr, Intravenous, CONTINUOUS, IF overnight stay, continue IV fluids until 0400 POD #1, then may saline lock if tolerating oral fluids. IF Day of Surgery Discharge, continue IV Fluids until one hour before discharge., Starting on Jaycee 12/09/23 at 1300, Until Wed12/10/23 at 1444 $New Bag 12/09/2023 11:14 PM CDT 50 mL/hr Shift Total 12/09/2023 4:12 PM CDT 50 mL/hr Restarted 12/09/2023 12:55 PM CDT 50 mL/hr levothyroxine (SYNTHROID/LEVOTHROID) tablet 150 mcg 150 mcg, Oral, DAILY, First dose on Wed12/09/23 at 1800, Separate oral administration of iron- or calcium-containing products and levothyroxine by at least 4 hours. $Given 12/10/2023 6:25 AM CDT 150 mcg lidocaine (LMX4) cream Topical, EVERY 1 HOUR PRN, pain, with VAD insertion, Starting on Wed12/09/23 at 1253, Apply at least 30 minutes prior to [...] pain with VAD insertion, Starting on Jaycee 12/09/23 at 1253, MAX dose 1 mL subcutaneous OR intradermal along the side of the vein in divided doses as needed for VAD insertion. Do NOT give if patient has a history of allergy to any local anesthetic or any noe product. Do NOT use both lidocaine intradermal/subcutaneous injection and the lidocaine cream on the same site. magnesium hydroxide (MILK OF MAGNESIA) suspension 30 mL 30 mL, Oral, DAILY PRN, constipation, Use if preventive measures (senna-docusate, docusate, and polyethylene glycol) are not effective., Starting on Jaycee 12/09/23 at 1253, Shake well. Hold for loose stools. meperidine (DEMEROL) injection 12.5 mg 12.5 mg, Intravenous, EVERY 5 MIN PRN, post anesthesia shivering if Respiratory Rate greater than 10, Starting on Jaycee 12/09/23 at 0859, For 2 doses, PACU $Given 12/09/2023 9:40 AM CDT 12.5 mg $Given 12/09/2023 9:24 AM CDT 12.5 mg naloxone (NARCAN) injection 0.2 mg 0.2 mg, Intravenous, EVERY 2 MIN PRN, opioid reversal, Starting on Jaycee 12/09/23 at 1301, Administer intravenous route when available and notify [...] MIN PRN, opioid reversal, Starting on Jaycee 12/09/23 at 1301, Administer intramuscular if an intravenous route is [...] MIN PRN, opioid reversal, Starting on Jaycee 12/09/23 at 1301, Administer intravenous route when available and notify [...] MIN PRN, opioid reversal, Starting on Jaycee 12/09/23 at 1301, Administer intramuscular if an intravenous route is [...] HOURS PRN, nausea, vomiting, Starting on Jaycee 12/09/23 at 1253, This is Step 1 of nausea and [...] Administer over 2-5 Minutes, Starting on Jaycee 24 at 1253, This is Step 1 of nausea and vomiting management. If nausea not resolved in 15 minutes, go to Step 2 prochlorperazine (COMPAZINE). oxyCODONE (ROXICODONE) tablet 5 mg 5 mg, Oral, EVERY 4 HOURS PRN, moderate pain, Starting on Jaycee 12/09/23 at 0945, Hold oral PRN dose for analgesic side effects. Notify provider to assess for uncontrolled pain or analgesic side effects. Hold while on IV BARGE CAPTAIN or with regular IV opioid dosing. $Given 12/10/2023 9:31 AM CDT 5 mg $Given 12/10/2023 5:36 AM CDT 5 mg $Given 12/09/2023 8:02 PM CDT 5 mg oxyCODONE IR (ROXICODONE) tablet 10 mg 10 mg, Oral, EVERY 4 HOURS PRN, severe pain, Starting on Jaycee 12/09/23 at 0945, Hold oral PRN dose for analgesic side effects. Notify provider to assess for uncontrolled pain or analgesic side effects. Hold while on IV BARGE CAPTAIN or with regular IV opioid dosing. polyethylene glycol (MIRALAX) Packet 17 g 17 g, Oral, DAILY, First dose on Wed12/10/23 at 0800, To prevent constipation. Mixed prescribed [...] prep regimen or bowel clean out. $Given 12/10/2023 9:32 AM CDT 17 g povidone-iodine 10% (17 mL) (BETADINE) in 500 mL saline irrigation PRN, Starting on Wed12/09/23 at 0807, Intra-procedure $Given 12/09/2023 8:07 AM CDT 500 ml given Operative Site/Surgical Site prochlorperazine (COMPAZINE) injection 10 mg 10 mg, Intravenous, EVERY 6 HOURS PRN, nausea, vomiting, Administer over 1-2 Minutes, Starting on Jaycee 12/09/23 at 1253, This is Step 2 of nausea and vomiting management. If nausea not resolved in 15-30 minutes, Notify provider. prochlorperazine (COMPAZINE) tablet 10 mg 10 mg, Oral, EVERY 6 HOURS PRN, nausea, vomiting, Starting on Jaycee 12/09/23 at 1253, This is Step 2 of nausea and vomiting management. If nausea not resolved in 15-30 minutes, Notify provider. ROPivacaine (NAROPIN) 5 MG/ML 150 mg, ketorolac (TORADOL) 30 mg, EPINEPHrine (ADRENALIN) 0.6 mg in sodium chloride 0.9 % 50 mL (ORTHO THOMAS LOW DOSE) INTRA-ARTICULAR, EYELET ROW MARKER TO O.R., Starting on Jaycee 12/09/23 at 0629, For 1 dose, NOT FOR IV INJECTION. Used by provider at the end of surgery., Pre-procedure $Given 12/09/2023 8:07 AM CDT Operative Site/Surgical Site senna-docusate (SENOKOT-S/PERICOLACE) 8.6-50 MG per tablet 1 tablet 1 tablet, Oral, 2 TIMES DAILY, First dose on Jaycee 12/09/23 at 2000, To prevent constipation. Hold for loose stools Hold for loose stools. $Given 12/10/2023 9:31 AM CDT 1 tablet $Given 12/09/2023 8:02 PM CDT 1 tablet sodium chloride (PF) 0.9% PF flush 3 mL 3 mL, Intracatheter, EVERY 8 HOURS, First dose on Jaycee 12/09/23 at 1300, to lock peripheral IV dormant line $Given 12/10/2023 9:32 AM CDT 3 mLs $Given 12/10/2023 1:31 AM CDT 3 mLs sodium chloride (PF) 0.9% PF flush 3 mL 3 mL, Intracatheter, EVERY 1 MIN PRN, line flush, other, to ensure patency or to lock dormant line, Starting on Jaycee 12/09/23 at 1253 sodium chloride 0.9% irrigation (bag) PRN, Starting on Jaycee 12/09/23 at 0807, Intra-procedure $Given 12/09/2023 8:07 AM CDT 1,500 mLs Operative Site/Surgi zuleyma Site vancomycin (VANCOCIN) topical powder PRN, Starting on Jaycee 12/09/23 at 0807, Intra-procedure $Given 12/09/2023 8:07 AM CDT 1 g Operative Site/Surgi zuleyma Site documented in this encounter Active and Recently Administered Medications Times are shown in CDT. Scheduled Medication Order 12/08/2023 12/09/2023 12/10/2023 acetaminophen (TYLENOL) tablet 975 mg (COMPLETED) 975 mg, Oral, ONCE, On Jaycee 12/09/23 at 0700, For 1 dose, Administer only if patient has not had acetaminophen in the last 6 hours Maximum acetaminophen dose from all sources = 75 mg/kg/day not to exceed 4 grams/day., Pre-procedure 0658 ($Given - Provider: Brandi Hager RN) acetaminophen (TYLENOL) tablet 975 mg 975 mg, Oral, EVERY 8 HOURS, First dose on Jaycee 12/09/23 at 1500, For 3 days, Administer for multimodal surgical pain management. Maximum acetaminophen dose from all sources = 75 mg/kg/day not to exceed 4 grams/day. 1610 ($Given - Provider: Sherron Arnold RN) 0128 ($Given - Provider: Jannet Holley, RN)0931 ($Given - Provider: Monroe Cuenca, RN) aspirin EC tablet 81 mg 81 mg, Oral, 2 TIMES DAILY, First dose on Jaycee 12/09/23 at 1999, Indications: VTE Prophylaxis, DO NOT CRUSH. 2001 ($Given - Provider: Eryn Martinez, MARTHA) 0932 ($Given - Provider: Monroe Cuenca, RN) ceFAZolin (ANCEF) 2 g in 100 mL D5W intermittent infusion (COMPLETED) Routine, 2 g, Intravenous, EVERY 8 HOURS, First dose on Jaycee 12/09/23 at 1530, For 2 doses, First post-op dose due 8 hours after intra-op dose, see eMAR. , Indications: Perioperative Pharmacoprophylaxis 1611 ($New Bag - Provider: Sherron Arnold RN) 0128 ($New Bag - Provider: Jannet Holley, MARTHA) ceFAZolin Sodium (ANCEF) injection 2 g (COMPLETED) Routine, 2 g, Intravenous, PRE-OP/PRE-PROCEDURE, Starting on Jaycee 12/09/23 at 0629, For 1 dose, Give first dose within 1 hour PRIOR to incision. If patient weight is greater than or equal to 120 kg increase dose to 3 g., Indications: Perioperative Pharmacoprophylaxis, Pre-procedure 0722 ($Given - Provider: Jh Wood APRN NUCLEAR PHYSICS PROFESSOR) famotidine (PEPCID) injection 20 mg(Linked Group 1) 20 mg, Intravenous, Administer over 2 Minutes, 2 TIMES DAILY, First dose on Jaycee 12/09/23 at 1999, If unable to take oral For ordered IV doses 1-20 mg, give IV Push diluted with 5-10 mL NS over a minimum of 2 minutes. 2001 (See Alternative - Provider: Eryn Martinez RN) 0931 (See Alternative - Provider: Monroe Cuenca, MARTHA) famotidine (PEPCID) tablet 20 mg(Linked Group 1) 20 mg, Oral, 2 TIMES DAILY, First dose on Wed12/09/23 at 1999 2001 ($Given - Provider: Eryn Martinez RN) 09 ($Given - Provider: Monroe Cuenca, MARTHA) levothyroxine (SYNTHROID/LEVOTHROID) tablet 150 mcg 150 mcg, Oral, DAILY, First dose on Wed12/09/23 at 1800, Separate oral administration of iron- or calcium-containing products and levothyroxine by at least 4 hours. 185 (Not Given - Provider: Sherron Arnold RN - Reason: Patient/family refused - Comment: pt will take again tomorrow AM) 06 ($Given - Provider: Jannet Holley RN) polyethylene glycol (MIRALAX) Packet 17 g 17 g, Oral, DAILY, First dose on Wed12/10/23 at 0800, To prevent constipation. Mixed prescribed [...] bowel prep regimen or bowel clean out. 0932 ($Given - Provider: Monroe Cuenca, MARTHA) ROPivacaine (NAROPIN) 5 MG/ML 150 mg, ketorolac (TORADOL) 30 mg, EPINEPHrine (ADRENALIN) 0.6 mg in sodium chloride 0.9 % 50 mL (ORTHO THOMAS LOW DOSE) (COMPLETED) INTRA-ARTICULAR, EYELET ROW MARKER TO O.R., Starting on Wed12/09/23 at 0629, For 1 dose, NOT FOR IV INJECTION. Used by provider at the end of surgery., Pre-procedure 08 ($Given - Provider: Favio Gasca MD) senna-docusate (SENOKOT-S/PERICOLACE) 8.6-50 MG per tablet 1 tablet 1 tablet, Oral, 2 TIMES DAILY, First dose on Wed12/09/23 at 1999, To prevent constipation. Hold for loose stools Hold for loose stools. 2001 ($Given - Provider: Eryn Martinez, RN) 0931 ($Given - Provider: Monroe Cuenca, MARTHA) sodium chloride (PF) 0.9% PF flush 3 mL 3 mL, Intracatheter, EVERY 8 HOURS, First dose on Wed12/09/23 at 1300, to lock peripheral IV dormant line 1300 (Not Given - Provider: Sherron Arnold RN - Reason: IV Infusing)1611 (Not Given - Provider: Sherron Arnold RN - Reason: IV Infusing) 0131 ($Given - Provider: Jannet Holley RN)0932 ($Given - Provider: Monroe Cuenca, MARTHA) tranexamic acid 1 g in 100 mL NS IV bag (premix) (COMPLETED) 1 g, Intravenous, Administer over 10 Minutes, ONCE, On Wed12/09/23 at 0630, For 1 dose, Give before incision., Pre-procedure 0732 ($Given - Provider: Jh Wood APRN CRNA) tranexamic acid 1 g in 100 mL NS IV bag (premix) (COMPLETED) 1 g, Intravenous, Administer over 10 Minutes, ONCE, On Wed12/09/23 at 0630, For 1 dose, Give at Closure., Pre-procedure 0828 ($Given - Provider: Jh Wood APRN NUCLEAR PHYSICS PROFESSOR - Comment: surgeons orders to give now) valsartan-hydrochlorothiazide (DIOVAN HCT) 160-12.5 mg combo dose Oral, DAILY, First dose on Wed12/10/23 at 0800, Give both components for Diovan HCT product, On hold since Wed12/09/2023 at 1730 until manually unheld 1730 (Held by provider - Provider: Rosa Styles PA-C - Reason: Other - Comment: Postop, reassess in AM if able to resume) 0800 (Automatically Held)1444 (Unheld by provider - Provider: Orders Generic Provider) Continuous Medication Order 12/08/2023 12/09/2023 12/10/2023 lactated ringers infusion (CANCELED) at 10 mL/hr, Intravenous, CONTINUOUS, IF patient NOT on dialysis., Pre-procedure, Starting on Wed12/09/23 at 0600, Until Jaycee 12/09/23 at 0855 0637 ($New Bag - Provider: Brandi Hager RN)0721 (Paused - Provider: Jh Wood APRN CRNA - Comment: Switch to gravity)0722 (Restarted - Provider: Jh Wood APRN CRNA)0852 (Anesthesia Volume Adjustment - Provider: Jh Wood APRN CRNA) lactated ringers infusion (CANCELED) at 100 mL/hr, Intravenous, CONTINUOUS, Continue until IV catheter is weaned, PACU, Starting on Jaycee 12/09/23 at 0900, Until Jaycee 12/09/23 at 1246 0904 ($New Bag - Provider: Kaley Monaco RN) lactated ringers infusion at 50 mL/hr, Intravenous, CONTINUOUS, IF overnight stay, continue IV fluids until 0400 POD #1, then may saline lock if tolerating oral fluids. IF Day of Surgery Discharge, continue IV Fluids until one hour before discharge., Starting on Jaycee 12/09/23 at 1300, Until Wed12/10/23 at 1444 1255 (Restarted - Provider: Sherron Arnold RN)1612 (Shift Total - Provider: Sherron Arnold RN)2314 ($New Bag - Provider: Eryn Martinez RN) PRN Medication Order 12/08/2023 12/09/2023 12/10/2023 acetaminophen (TYLENOL) tablet 650 mg 650 mg, Oral, EVERY 4 HOURS PRN, other, For optimal non-opioid multimodal pain management to improve pain control., Starting on Wed12/12/23 at 0000, May give first dose 4 hours after last scheduled dose of acetaminophen (TYLENOL). Maximum acetaminophen dose from all sources = 75 mg/kg/day not to exceed 4 grams/day. benzocaine-menthol (CHLORASEPTIC) 6-10 MG lozenge 1 lozenge 1 lozenge, Buccal, EVERY 1 HOUR PRN, sore throat, sore throat without fever, Starting on Jaycee 12/09/23 at 1253 bisacodyl (DULCOLAX) suppository 10 mg 10 mg, Rectal, DAILY PRN, constipation, Use if Magnesium hydroxide (MILK of MAGNESIA) not effective after 24 hours. May discontinue if patient having bowel movement., Starting on Jaycee 12/09/23 at 1253, Hold for loose stools. fentaNYL (PF) (SUBLIMAZE) injection 50 mcg (CANCELED) 50 mcg, Intravenous, EVERY 5 MIN PRN, severe pain, Give fentaNYL (SUBLIMAZE) first if HYDROmorphone (DILAUDID) also ordered., Starting on Jaycee 12/09/23 at 0859, Administer fentaNYL (SUBLIMAZE) for acute pain control. [...] fentanyl (SUBLIMAZE) after administering HYDROmorphone (DILAUDID)., PACU 0903 ($Given - Provider: Maci Monaco RN)0908 ($Given - Provider: Maci Monaco RN) HYDROmorphone (DILAUDID) injection 0.2 mg(Linked Group 2) 0.2 mg, Intravenous, EVERY 2 HOURS PRN, moderate pain, Starting on Jaycee 12/09/23 at 1253, IF patient unable to take oral pain medication or pain not controlled with oral analgesics. Hold IV PRN opioid dose for analgesic side effects. Notify provider to assess for uncontrolled pain or analgesic side effects. 1318 (See Alternative - Provider: Sherron Arnold RN)2216 ($Given - Provider: Eryn Martinez RN) HYDROmorphone (DILAUDID) injection 0.4 mg (CANCELED) 0.4 mg, Intravenous, EVERY 5 MIN PRN, severe pain, Starting on Jaycee 12/09/23 at 0859, Use FentaNYL (SUBLIMAZE) first if ordered. Maximum total cumulative dose NOT to exceed 2 mg. DO NOT revert back to fentanyl (SUBLIMAZE) after administering HYDROmorphone (DILAUDID). Notify Provider to assess for uncontrolled pain or analgesic side effects., PACU 0915 ($Given - Provider: Maci Monaco, MARTHA)0932 ($Given - Provider: Maci Monaco RN) HYDROmorphone (DILAUDID) injection 0.4 mg(Linked Group 2) 0.4 mg, Intravenous, EVERY 2 HOURS PRN, severe pain, Starting on Jaycee 12/09/23 at 1253, IF patient unable to take oral pain medication or pain not controlled with oral analgesics. Hold IV PRN opioid dose for analgesic side effects. Notify provider to assess for uncontrolled pain or analgesic side effects. 1318 ($Given - Provider: Sherron Arnold RN)2217 (See Alternative - Provider: Eryn Martinez RN) lidocaine (LMX4) cream Topical, EVERY 1 HOUR PRN, pain, with VAD insertion, Starting on Jaycee 12/09/23 at 1253, Apply at least 30 minutes prior to [...] pain with VAD insertion, Starting on Jaycee 12/09/23 at 1253, MAX dose 1 mL subcutaneous OR intradermal along the side of the vein in divided doses as needed for VAD insertion. Do NOT give if patient has a history of allergy to any local anesthetic or any noe product. Do NOT use both lidocaine intradermal/subcutaneous injection and the lidocaine cream on the same site. magnesium hydroxide (MILK OF MAGNESIA) suspension 30 mL 30 mL, Oral, DAILY PRN, constipation, Use if preventive measures (senna-docusate, docusate, and polyethylene glycol) are not effective., Starting on Jaycee 12/09/23 at 1253, Shake well. Hold for loose stools. meperidine (DEMEROL) injection 12.5 mg (COMPLETED) 12.5 mg, Intravenous, EVERY 5 MIN PRN, post anesthesia shivering if Respiratory Rate greater than 10, Starting on Jaycee 12/09/23 at 0859, For 2 doses, PACU 0924 ($Given - Provider: Maci Monaco RN)0940 ($Given - Provider: Maci Monaco RN) naloxone (NARCAN) injection 0.2 mg(Linked Group 3) 0.2 mg, Intravenous, EVERY 2 MIN PRN, opioid reversal, Starting on Jaycee 12/09/23 at 1301, Administer intravenous route when available and notify [...] MIN PRN, opioid reversal, Starting on Jaycee 12/09/23 at 1301, Administer intramuscular if an intravenous route is [...] MIN PRN, opioid reversal, Starting on Jaycee 12/09/23 at 1301, Administer intravenous route when available and notify [...] MIN PRN, opioid reversal, Starting on Jaycee 12/09/23 at 1301, Administer intramuscular if an intravenous route is [...] HOURS PRN, nausea, vomiting, Starting on Jaycee 12/09/23 at 1253, This is Step 1 of nausea and [...] Liquid not required. ondansetron (ZOFRAN) injection 4 mg(Linked Group 4) 4 mg, Intravenous, EVERY 6 HOURS PRN, nausea, vomiting, Administer over 2-5 Minutes, Starting on Jaycee 12/09/23 at 1253, This is Step 1 of nausea and vomiting management. If nausea not resolved in 15 minutes, go to Step 2 prochlorperazine (COMPAZINE). oxyCODONE (ROXICODONE) tablet 5 mg(Linked Group 5) 5 mg, Oral, EVERY 4 HOURS PRN, moderate pain, Starting on Jaycee 12/09/23 at 0945, Hold oral PRN dose for analgesic side effects. Notify provider to assess for uncontrolled pain or analgesic side effects. Hold while on IV BARGE CAPTAIN or with regular IV opioid dosing. 0952 ($Given - Provider: Gabbi Pollack RN)1611 ($Given - Provider: Sherron Arnold RN)2001 ($Given - Provider: Eryn Martinez RN - Comment: 1tab. per pt request.) 0536 ($Given - Provider: Jannet Holley RN)0931 ($Given - Provider: Monroe Cuenca, MARTHA) oxyCODONE IR (ROXICODONE) tablet 10 mg(Linked Group 5) 10 mg, Oral, EVERY 4 HOURS PRN, severe pain, Starting on Jaycee 12/09/23 at 0945, Hold oral PRN dose for analgesic side effects. Notify provider to assess for uncontrolled pain or analgesic side effects. Hold while on IV BARGE CAPTAIN or with regular IV opioid dosing. 0952 (See Alternative - Provider: Gabbi Pollack RN)1611 (See Alternative - Provider: Sehrron Arnold RN)2001 (See Alternative - Provider: Eryn Martinez, RN) 0536 (See Alternative - Provider: Jannet Holley, RN)09 (See Alternative - Provider: Monroe Cuenca, MARTHA) povidone-iodine 10% (17 mL) (BETADINE) in 500 mL saline irrigation (CANCELED) PRN, Starting on Jaycee 12/09/23 at 0807, Intra-procedure 08 ($Given - Provider: Favio Gasca MD) prochlorperazine (COMPAZINE) injection 10 mg(Linked Group 6) 10 mg, Intravenous, EVERY 6 HOURS PRN, nausea, vomiting, Administer over 1-2 Minutes, Starting on Jaycee 12/09/23 at 1253, This is Step 2 of nausea and vomiting management. If nausea not resolved in 15-30 minutes, Notify provider. prochlorperazine (COMPAZINE) tablet 10 mg(Linked Group 6) 10 mg, Oral, EVERY 6 HOURS PRN, nausea, vomiting, Starting on Jaycee 12/09/23 at 1253, This is Step 2 of nausea and vomiting management. If nausea not resolved in 15-30 minutes, Notify provider. sodium chloride (PF) 0.9% PF flush 3 mL 3 mL, Intracatheter, EVERY 1 MIN PRN, line flush, other, to ensure patency or to lock dormant line, Starting on Jaycee 12/09/23 at 1253 sodium chloride 0.9% irrigation (bag) (CANCELED) PRN, Starting on Jaycee 12/09/23 at 0807, Intra-procedure 0807 ($Given - Provider: Favio Gasca MD) vancomycin (VANCOCIN) topical powder (CANCELED) PRN, Starting on Jaycee 12/09/23 at 0807, Intra-procedure 0807 ($Given - Provider: Favio Gasca MD) Linked Groups Order Group 1: famotidine (PEPCID) tablet 20 mgJump to med 20 mg, Oral, 2 TIMES DAILY, First dose on Jaycee 12/09/23 at 2000 Or famotidine (PEPCID) injection 20 mgJump to med 20 mg, Intravenous, Administer over 2 Minutes, 2 TIMES DAILY, First dose on Jaycee 12/09/23 at 2000, If unable to take oral For ordered IV doses 1-20 mg, give IV Push diluted with 5-10 mL NS over a minimum of 2 minutes. Group 2: HYDROmorphone (DILAUDID) injection 0.2 mgJump to med 0.2 mg, Intravenous, EVERY 2 HOURS PRN, moderate pain, Starting on Jaycee 12/09/23 at 1253, IF patient unable to take oral pain medication or pain not controlled with oral analgesics. Hold IV PRN opioid dose for analgesic side effects. Notify provider to assess for uncontrolled pain or analgesic side effects. Or HYDROmorphone (DILAUDID) injection 0.4 mgJump to med 0.4 mg, Intravenous, EVERY 2 HOURS PRN, severe pain, Starting on Jaycee 12/09/23 at 1253, IF patient unable to take oral pain medication or pain not controlled with oral analgesics. Hold IV PRN opioid dose for analgesic side effects. Notify provider to assess for uncontrolled pain or analgesic side effects. Group 3: naloxone (NARCAN) injection 0.2 mgJump to med 0.2 mg, Intravenous, EVERY 2 MIN PRN, opioid reversal, Starting on Jaycee 12/09/23 at 1301, Administer intravenous route when available and notify [...] MIN PRN, opioid reversal, Starting on Jaycee 12/09/23 at 1301, Administer intravenous route when available and notify [...] MIN PRN, opioid reversal, Starting on Jaycee 12/09/23 at 1301, Administer intramuscular if an intravenous route is [...] MIN PRN, opioid reversal, Starting on Jaycee 12/09/23 at 1301, Administer intramuscular if an intravenous route is [...] HOURS PRN, nausea, vomiting, Starting on Jaycee 12/09/23 at 1253, This is Step 1 of nausea and [...] Administer over 2-5 Minutes, Starting on Jaycee 12/09/23 at 1253, This is Step 1 of nausea and vomiting management. If nausea not resolved in 15 minutes, go to Step 2 prochlorperazine (COMPAZINE). Group 5: oxyCODONE (ROXICODONE) tablet 5 mgJump to med 5 mg, Oral, EVERY 4 HOURS PRN, moderate pain, Starting on Jaycee 12/09/23 at 0945, Hold oral PRN dose for analgesic side effects. Notify provider to assess for uncontrolled pain or analgesic side effects. Hold while on IV BARGE CAPTAIN or with regular IV opioid dosing. Or oxyCODONE IR (ROXICODONE) tablet 10 mgJump to med 10 mg, Oral, EVERY 4 HOURS PRN, severe pain, Starting on Jaycee 12/09/23 at 0945, Hold oral PRN dose for analgesic side effects. Notify provider to assess for uncontrolled pain or analgesic side effects. Hold while on IV BARGE CAPTAIN or with regular IV opioid dosing. Group 6: prochlorperazine (COMPAZINE) injection 10 mgJump to med 10 mg, Intravenous, EVERY 6 HOURS PRN, nausea, vomiting, Administer over 1-2 Minutes, Starting on Jaycee 12/09/23 at 1253, This is Step 2 of nausea and vomiting management. If nausea not resolved in 15-30 minutes, Notify provider. Or prochlorperazine (COMPAZINE) tablet 10 mgJump to med 10 mg, Oral, EVERY 6 HOURS PRN, nausea, vomiting, Starting on Jaycee 12/09/23 at 1253, This is Step 2 of nausea and vomiting management. If nausea not resolved in 15- 30 minutes, Notify provider. 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
--- OUTSIDE RECORDS SUMMARY | 2024-03-02 08:42 | XMS_ITS | Encounter Summary ---
Author Organization [facility] Address [address] [place] [address] Care Team Providers Care Artificial Cherry Maker Name Role Phone Rae Dorantes MD Primary Care Provider Reason for Visit * Auth/Cert Specialty Diagnoses / Procedures Referred By Maira adair Referred To Contact Surgery Diagnoses Primary osteoarthritis of right hip Primary osteoarthritis of right hip [M16.11] Procedures SD TOTAL HIP ARTHROPLASTY Right total hip arthroplasty [facility] [address] [place] [address] Referral ID Status Reason Start Date Expiration Date Visits Re quested Visits Authorized [id number] 1 1 Encounter Details Date Type Department Care Team (Latest Contact Info) Description 12/09/2023 5:19 AM CDT - 12/10/2023 12:30 PM CDT Hospital Encounter [facility] [address] [place] [address] Favio Gasca MD [facility] [address], [place] [address] [place] [address] S/P total left hip arthroplasty (Primary Dx); S/P total right hip arthroplasty Discharge Disposition: Home or Self Care Social [...] Sex Assigned at Female 05/01/2023 11:03 AM PLAN MANAGER Gender Identity Female 05/01/2023 11:03 AM PLAN MANAGER Sexual Orientation Not on file documented as [...] (SOFTCLIX) lancets TEST 1 TIME DAILY 12/23/2022 llxnxok-wdphmiv-wayfwg elizabeth 4-10-30 % CREA Apply topically daily [...] analgesics: Yes Does patient have an identified executive business coach: Yes Has goal D/C date and time [...] patient/family: YES Discharged with spouse * Tomasa Wood, OTR - 12/10/2023 9:31 AM CDT 12/10/23 [...] clamp on tub grab bar, sock aid, gas engine mechanic, walker bag, long handled bath sponge) Fall [...] flowsheet Transfers Transfers shower transfer Shower Transfer [place] Level (Shower Transfer) minimum assist (75% patient effort) Activities of Daily Living BADL Assessment/Intervention lower body dressing;toileting;grooming Lower Body Dressing Assessment/Training Comment, (Lower Body Dressing) pt plans to have SO assist at discharge [place] Level (Lower Body Dressing) minimum assist (75% patient effort) Toileting [place] Level (Toileting) supervision Clinical Impression Criteria for [...] Evaluation Time OT Eval, Low Complexity Minutes (84347) 13 OT Goals Therapy Frequency (OT) One [...] Management Self-Care/Home Mgmt/ADL, Compensatory, Meal Prep Minutes (96894) 15 OT Discharge Planning OT Plan DC OT Discharge Recommendation (DC Rec) (Defer to ortho) OT Rationale for DC Rec Anticipate at discharge pt will require supervision with self-cares except require oJ with LB dressing. Pt and SO confirm [...] goal(s). See goals on Care Plan in [facility] electronic health record for goal details. [...] for D/C Home today Favio Gasca MD [facility] [phone] * Adilene Kruger, PT - 12/09/2023 4:10 PM CDT 12/09/23 4224 Appointment Info Signing Clinician's Name / Credentials [...] Evaluation Time PT Eval, Low Complexity Minutes (96362) 6 Physical Therapy Goals PT Frequency Daily [...] Ther. Procedure: strength, endurance, ROM, flexibillity Minutes (88614) 8 Symptoms Noted During/After Treatment increased pain Treatment Detail/Skilled Intervention Pt cued for supine exercises for strength and circulation benefits including APs, quad sets, glute sets, SLRs, x10 each. Cues for slow and controlled movement. Edu on intensity and frequency of exercises. Provided HEP handout. Therapeutic Activity Therapeutic Activities: dynamic activities to improve functional performance Minutes (86774) 9 Symptoms Noted During/After Treatment Fatigue;Increased pain [...] Nurse updated. Gait Training Gait Training Minutes (39122) 10 Symptoms Noted During/After Treatment (Gait Training) [...] 7:33 AM CDTAssociated Order(s): HOSPITALIST IP CONSULT [facility] Brief Consult Note - Hospitalist Service Date [...] to softer blood pressures Hypothyroidism - continue captain assistant levothryoxine Type 2 DM - not currently on captain assistant DM medications. 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 abdominal ORTHOPEDIC SURGERY Bilateral carpal [...] (SOFTCLIX) lancets TEST 1 TIME DAILY 12/09/2023 paexyan-fdqflxc-brbdzn elizabeth 4-10-30 % CREA Apply topically daily [...] hip arthroplasty. SARI GUTHRIE MD SYSTEM ID: [id number] documented in this encounter Miscellaneous Notes * Plan of Care - Adilene Kruger PT - 12/10/2023 8:59 AM CDT Physical Therapy Discharge Summary Reason for therapy discharge: All goals and outcomes met, no further needs identified. Progress towards therapy goal(s). See goals on Care Plan in [facility] electronic health record for goal details. [...] Manage Fall Risk Recent Flowsheet Documentation Taken 12/10/2023 0128 by Jannet Holley, RN Safety Promotion/Fall Prevention: clutter free environment maintained safety round/check completed Intervention: Prevent Skin Injury Recent Flowsheet Documentation Taken 12/10/2023 012 by Jannet Holley RN Body Position: position [...] Transition * Plan of Care - Eryn Martienz RN - 12/09/2023 10:49 PM CDT Goal [...] IV dilaudid. Does patient have an identified executive business coach: Yes Has goal D/C date and time been discussed with patient: Yes , expected discharge on /24 to home. Plan of Care Reviewed With: [...] Optimal Functional Status Recent Flowsheet Documentation Taken 12/09/2023 2200 by Eryn Martinez RN Assistive Device Utilized: [...] IV dilaudid Does patient have an identified executive business coach: Yes Has goal D/C date and time [...] Gasca MD - 12/09/2023 9:41 AM CDT [facility] Brief Operative Note Pre-operative diagnosis: Primary osteoarthritis [...] Implant Name Type Inv. Item Serial No. Suspender Cutter Lot No. LRB No. Used Action [employer] II TRITANIUM CLUSTERHOLE 52E - [id number] Total Joint Component/Insert TRIDENT II TRITANIUMCLUSTERHOLE 52E [employer] [id number] Right 1 Implanted INSERT ACTB 10DEG 36MM 0D E HIP X3 TRDNT STRL LF - [id number] Total Joint Component/Insert INSERT ACTB 10DEG 36MM 0D E HIP X3 TRDNT STRL LF [employer] [id number] Right 1 Implanted 6.5MM LOW PROFILE HEX SCR 20MM - [id number] Metallic Hardware/Sedro Woolley 6.5MM LOW PROFILE HEX SCR 20MMSTRYKER ORTHOPEDICS [id number] Right 1 Implanted IMP SCR STRK LOW PROFILE HEX 6.5X30MM [id number] - [id number] Metallic Hardware/Sedro Woolley IMP SCR STRK LOW PROFILE HEX 6.5X30MM [id number] [employer] HY4 Right 1 Implanted IMP HEAD FEMORAL STRK BIOLOX DELTA CERAMIC 36MM +0MM - [id number] Total Joint Component/Insert IMP HEAD FEMORAL STRK BIOLOX DELTA CERAMIC 36MM +0MM [employer] [id number] Right 1 Implanted STEM FEM 105MM 11MM INSG 5 40 STD OFST 35MM HIP - [id number] Total Joint Component/Insert STEM FEM 105MM 11MM INSG 5 40 STD OFST 35MM HIP [employer] [id number] Right 1 Implanted * Op Note - Favio Gasca MD - 12/09/2023 7:54 AM CDT Preoperative diagnosis: End stage osteoarthritis right hip Postoperative diagnosis: As above Procedure: Right total hip arthoplasty Surgeon: Favio Gasca MD Senior Service Technician: Mimi Richardson PA-C A physicians regulatory assistant was available for the surgery and [...] screws. * Pharmacy-Admission Medication History - Li Worrell [facility] - 12/07/2023 11:32 AM CDT Medication reconciliation interview completed by pre-admitting nurse, reviewed by pharmacy. No further clarifications needed. Prior to Admission medications Medication Sig Last Dose Taking? Auth Provider Assisted End Date ACCU-CHEK GUIDE test strip daily [...] mg by mouth daily Yes Reported, Patient ujqswoq-vcpxfjz-izogyz elizabeth 4-10-30 % CREA Apply topically daily [...] Coagulopathy No Does the patient have any presybeterian/cultural preferences related to blood products? No Education [...] - 15.7 g/dL 12/10/2023 6:27 AM CDT [facility] Blood TOPOGRAPHY UNKNOWN / Unknown Venipuncture / Unknown 12/10/2023 6:18 AM CDT 12/10/2023 6:24 AM CDT Mimi Richardson PA-C LAB - BLOOD ORDERABL ES [facility] [address] Lab (1st floor, no room number) [place] [address] * (ABNORMAL) Basic metabolic panel (12/10/2023 [...] 12/10/2023 6:53 AM CDT LABORATORY Comment:eGFR calculated us2020 CKD-EPI equation. Calcium 8.8 8.6 - 10.0 mg/dL 12/10/2023 6:53 AM CDT LABORATORY Glucose 96 70 - 99 mg/dL 12/10/2023 6:53 AM CDT LABORATORY Blood TOPOGRAPHY UNKNOWN / Unknown Venipuncture / Unknown 12/10/2023 6:18 AM CDT 12/10/2023 6:24 AM CDT Rosa Styles PA-C LAB - BLOOD ORDERABL ES LABORATORY [facility] [address] Lab (1st floor, no room number) [place] [address] * Glucose by meter (12/10/2023 6:07 AM CDT) GLUCOSE BY METER POCT 79 70 - 99 mg/dL 12/10/2023 6:26 AM CDT LABORATORY POC Blood, Capillary BLOOD SPECIMEN / Unknown 12/10/2023 6:07 AM CDT 12/10/2023 6:26 AM CDT Favio Gasca MD LAB - BEAKER POC T LABORATORY [facility] [address] Lab (1st floor, no room number) [place] [address] * (ABNORMAL) Glucose by meter (12/09/2023 9:27 AM CDT) [facility] GLUCOSE BY METER POCT 102(H) 70 - 99 mg/dL 12/09/2023 9:34 AM CDT LABORATORY POC Blood, Capillary BLOOD SPECIMEN / Unknown 12/09/2023 9:27 AM CDT 12/09/2023 9:34 AM CDT Favio Gasca MD LAB - BEAKER POC T Performing Organization Address City/[facility]/ZIP Co de Phone Number LABORATORY [facility] [address] Lab (1st floor, no room number) [place] [phone] [place] [address] * XR Pelvis w Hip Port Right 1 View (12/09/2023 9:26 AM CDT) Anatomical Region Laterality Modality Abdomen/Pelvis Right Digital Radiogra phy Impressions 12/09/2023 9:30 AM CDT IMPRESSION: Status post recent right total hip arthroplasty. No immediate hardware complication. Expected postsurgical soft tissue edema and subcutaneous emphysema. No acute fracture or malalignment. Osteopenia. Prior left total hip arthroplasty. SARI GUTHRIE MD SYSTEM ID: [id number] Narrative 12/09/2023 9:30 AM CDT XR PELVIS [...] hip arthroplasty. SARI GUTHRIE MD SYSTEM ID: [id number] Mimi Richardson PA-C IMG DIAGNOSTIC IMAGI NG ORDERABLES * Glucose by meter (12/09/2023 7:22 AM CDT) [facility] GLUCOSE BY METER POCT 91 70 - 99 mg/dL 12/09/2023 7:30 AM CDT LABORATORY POC Blood, Capillary BLOOD SPECIMEN / Unknown 12/09/2023 7:22 AM CDT 12/09/2023 7:30 AM CDT Favio Gasca MD LAB - BEAKER POC T LABORATORY POC [facility] [address] [facility], no room number) [place] [address] * Lab Result - HIM Scan (11/25/2023 [...] arthroplasty- Primary S/P total right hip arthroplasty S/P total right hip arthroplasty documented in this encounter Administered Medications Inactive Administered Medications - up to 3 most recent administrations Medication Order MAR Action Action Date Dose Rate Site acetaminophen (TYLENOL) tablet 650 mg 650 mg, Oral, EVERY 4 HOURS PRN, other, For optimal non-opioid multimodal pain management to improve pain control., Starting on [place] 12/12/23 at 0000, May give first dose [...] First dose on [place]cee 12/09/23 at 2000 $Given 12/10/2023 9:31 AM [...] at 0900, Until Jaycee 12/09/23 at 1246 $New Bag 12/09/2023 9:04 AM [...] 150 mcg, Oral, DAILY, First dose on [place]e 12/09/23 at 1800, Separate oral administration of iron- [...] analgesic side effects. Hold while on IV LEATHER DRESSER or with regular IV opioid dosing. $Given [...] analgesic side effects. Hold while on IV LEATHER DRESSER or with regular IV opioid dosing. polyethylene [...] $Given 12/10/2023 9:32 AM CDT 17 g prochlorperazine (COMPAZINE) injection 10 mg [...] line, Starting on [place] 12/09/23 at 1253 documented in this encounter Active and Recently [...] grams/day., Pre-procedure 0658 ($Given - Provider: Brandi Hager, RN) acetaminophen (TYLENOL) tablet 975 mg 975 mg, Oral, EVERY 8 HOURS, First dose on [place] 12/09/23 at 1500, For 3 days, Administer for multimodal surgical pain management. Maximum acetaminophen dose from all sources = 75 mg/kg/day not to exceed 4 grams/day. 1610 ($Given - Provider: Sherron Arnold RN) 0128 ($Given - Provider: Jannet Holley, MARTHA)0931 ($Given - Provider: Monroe Cuenca, RN) aspirin EC tablet 81 mg 81 mg, Oral, 2 TIMES DAILY, First dose on [place]ce[place] 12/09/23 at 2000, Indications: VTE Prophylaxis, DO NOT CRUSH. 2001 ($Given - Provider: Eryn Martinez RN) 0932 ($Given - Provider: Monroe Cuenca, MARTHA) ceFAZolin (ANCEF) 2 g in 100 mL [...] 0722 ($Given - Provider: Jh Wood APRN CHIEF CRUISER) famotidine (PEPCID) injection 20 mg(Linked Group 1) 20 mg, Intravenous, Administer over 2 Minutes, 2 TIMES DAILY, First dose on [place]cee 12/09/23 at 1999, If unable to take oral For ordered IV doses 1-20 mg, give IV Push diluted with 5-10 mL NS over a minimum of 2 minutes. 2001 (See Alternative - Provider: Eryn Martinez RN) 930 (See Alternative - Provider: Monroe Cuenca, RN) famotidine (PEPCID) tablet 20 mg(Linked Group 1) 20 mg, Oral, 2 TIMES DAILY, First dose on Wed12/09/23 at 1999 2001 ($Given - Provider: Eryn Martinez RN) 930 ($Given - Provider: Monroe Cuenca, MARTHA) levothyroxine (SYNTHROID/LEVOTHROID) tablet 150 mcg 150 mcg, Oral, DAILY, First dose on Wed12/09/23 at 1800, Separate oral administration of iron- or calcium-containing products and levothyroxine by at least 4 hours. 1853 (Not Given - Provider: Sherron Arnold RN [...] mL (ORTHO THOMAS LOW DOSE) (COMPLETED) INTRA-ARTICULAR, STACKER OPERATOR TO O.R., Starting on Wed12/09/23 at 0629, For 1 dose, NOT FOR IV INJECTION. Used by provider at the end of surgery., Pre-procedure 08 ($Given - Provider: Favio Gasca MD) senna-docusate (SENOKOT-S/PERICOLACE) 8.6-50 MG per tablet 1 tablet 1 tablet, Oral, 2 TIMES DAILY, First dose on Wed12/09/23 at 2000, To prevent constipation. Hold for loose stools Hold for loose stools. 2001 ($Given - Provider: Eryn Martinez RN) 09 ($Given - Provider: Monroe Cuenca, RN) sodium chloride (PF) 0.9% PF flush [...] 0732 ($Given - Provider: Jh Wood APRN CHIEF CRUISER) tranexamic acid 1 g in 100 mL NS IV bag (premix) (COMPLETED) 1 g, Intravenous, Administer over 10 Minutes, ONCE, On Wed12/09/23 at 0630, For 1 dose, Give at Closure., Pre-procedure 0828 ($Given - Provider: Jh Wood APRN CHIEF CRUISER - Comment: surgeons orders to give now) [...] 0855 0637 ($New Bag - Provider: Brandi Hager, MARTHA)0721 (Paused - Provider: Jh Wood APRN CHIEF CRUISER - Comment: Switch to gravity)0722 (Restarted - [...] effects. 1318 ($Given - Provider: Sherron Arnold RN)6834 (See Alternative - Provider: Eryn Martinez RN) [...] doses, PACU 0924 ($Given - Provider: Maci Monaco, RN)0940 ($Given - Provider: Maci Monaco, MARTHA) naloxone (NARCAN) injection 0.2 mg(Linked Group 3) [...] analgesic side effects. Hold while on IV LEATHER DRESSER or with regular IV opioid dosing. 0914 ($Given - Provider: Gabbi Pollack RN)1611 ($Given - Provider: Sherron Arnold RN)2001 ($Given - Provider: Eryn Martinez RN - Comment: 1tab. per pt request.) 0536 ($Given - Provider: Jannet Holley, MARTHA)0931 ($Given - Provider: Monroe Cuenca RN) oxyCODONE IR (ROXICODONE) tablet 10 mg(Linked Group 5) 10 mg, Oral, EVERY 4 HOURS PRN, severe pain, Starting on [place] 12/09/23 at 0945, Hold oral PRN dose for analgesic side effects. Notify provider to assess for uncontrolled pain or analgesic side effects. Hold while on IV LEATHER DRESSER or with regular IV opioid dosing. 0952 (See Alternative - Provider: Gabbi Pollack, RN)1611 (See Alternative - Provider: Sherron Arnold, RN)2001 (See Alternative - Provider: Eryn Martinez, RN) 0536 (See Alternative - Provider: Jannet Holley, RN)0931 (See Alternative - Provider: Monroe Cuenca, MARTHA) povidone-iodine 10% (17 mL) (BETADINE) in 500 mL saline irrigation (CANCELED) PRN, Starting on [place] 12/09/23 at 0807, Intra-procedure 0807 ($Given - Provider: Favio Gasca MD) prochlorperazine [...] 2 MIN PRN, opioid reversal, Starting on [facility] 12/09/23 at 1301, Administer intravenous route when [...] 2 MIN PRN, opioid reversal, Starting on [facility] 12/09/23 at 1301, Administer intramuscular if an [...] analgesic side effects. Hold while on IV LEATHER DRESSER or with regular IV opioid dosing. Or oxyCODONE IR (ROXICODONE) tablet 10 mgJump to med 10 mg, Oral, EVERY 4 HOURS PRN, severe pain, Starting on [place] 12/09/23 at 0945, Hold oral PRN dose for analgesic side effects. Notify provider to assess for uncontrolled pain or analgesic side effects. Hold while on IV LEATHER DRESSER or with regular IV opioid dosing. Group [...] documented as of this encounter Care Teams Artificial Cherry Maker Relationship Specialty Start Date End Date Rae Dorantes MD [facility] - [address] [address] PCP - General Internal Medicine 04/26/23 documented as of this encounter
--- OUTSIDE RECORDS SUMMARY | 2024-03-02 08:42 | XMS_ITS | Clinical Summary ---
Author Organization [facility] Address [place], [place] [address] Care Team Providers Care Kiosk Sales Representative Name Role Phone Pcp, No Primary Care [...] Date Diagnosed Date Unspecified sleep apnea 09/30/2006 Overview (10/05/2006): moderate HYPOTHYROIDISM Esophageal reflux Overview (10/05/2006): h/o ulcer Obesity, unspecified Social History Tobacco [...] Comments Blood Pressure 135/84 07/14/2011 1:13 PM ASSOCIATE PROFESSOR OF RADIOLOGY Pulse 93 07/14/2011 1:13 PM ASSOCIATE PROFESSOR OF RADIOLOGY Temperature 36.3 ??C (97.4 ??F) 07/14/2011 1:13 PM CS T Respiratory Rate - - Oxygen Saturation 95% 10/05/2006 10: 45 AM CDT Inhaled Oxygen Concentration - - Weight 122.3 kg (269 lb 9.6 oz) 07/14/2011 1:13 PM ASSOCIATE PROFESSOR OF RADIOLOGY Height - - Body Mass Index - [...] leted outside of [facility]) COVID-19 vaccine series (2023- season) 2024 Influenza for age 50-64 01/30/2024 Pneumococcal series for age 6-64 Aged Out No longer eligible based on patient's age to complete this topic Care Teams Kiosk Sales Representative Relationship Specialty Start Date End Date Pcp, No . PCP - General 02/09/12
== END 2024-03-01 09:16 | disposition home or self-care (01) ==
LOC: NFLDREF 03-02 08:36
PROVIDERS: PCP Internal Medicine; Referring Provider Internal Medicine; Visit Provider Internal Medicine
DX: E03.9 Hypothyroidism, unspecified (principal)
CPT/HCPCS: 84443

== ENCOUNTER 2024-09-28 14:22 | Outpatient (CLI) | payer OTHER, SELFPAY ==
--- NOTE | 2024-09-28 14:40 | CRLHL7_ITS ---
For Patients: As a result of the Century Cures Act, medical imaging exams and procedure reports are released immediately into your electronic medical record. You may view this report before your referring provider. If you have questions, please contact your health care provider. INDICATION: BILATERAL SCREENING MAMMOGRAM, ASYMPTOMATIC 59Y/O FEMALE COMPARISON: 11/20/22, 03/02/18, 03/08/12 TECHNIQUE: CC and MLO views were obtained. These mammographic images have been obtained using full-field digital technique. These mammographic images were interpreted with the benefit of computer aided detection and tomosynthesis. BREAST COMPOSITION: There are scattered areas of fibroglandular density. FINDINGS: No suspicious findings. ASSESSMENT: BI-RADS 1 Negative RECOMMENDATION: Annual screening mammogram. A lay language report of this examination will be provided to the patient. Dictated by: Reza Miranda MD @ 10/05/2024 13:09:47 (Electronically Signed)
== END 2024-09-28 14:23 | disposition home or self-care (01) ==
LOC: MAMMO 14:22
PROVIDERS: PCP Internal Medicine; Visit Provider Internal Medicine
DX: Z12.31 Encounter for screening mammogram for malignant neoplasm of breast (principal)
CPT/HCPCS: 77063; 77067

== ENCOUNTER 2025-02-01 08:39 | Outpatient (CLI) | payer OTHER, SELFPAY | END 2025-02-01 08:40 | disposition home or self-care (01) | LOC: NFLDREF 02-07 07:53 | PROVIDERS: PCP Internal Medicine; Referring Provider Internal Medicine; Visit Provider Internal Medicine | DX: E78.5 Hyperlipidemia, unspecified (principal); E03.9 Hypothyroidism, unspecified; I10 Essential (primary) hypertension | CPT/HCPCS: 80048; 80061; 84443 ==